=== PATIENT | male | born 1995 | race Caucasian/White ===

== ENCOUNTER 2020-08-03 17:51 | Inpatient (IN) | payer BC, MEDICARE, MEDICAID, SELFPAY ==
[2020-08-03 17:59] VITALS: BP 172/110; PULSE 98; RESP 20; TEMP 37.2; BMI 24.9
--- NOTE | 2020-08-03 18:02 | ED.PSYCH ---
HPI - Psych General Chief Complaint: Psychiatric Symptoms Stated Complaint: SI Time Seen by Provider: 08/03/20 18:00 Source: patient and EMS Mode of arrival: EMS Limitations: other (agitated) History of Present Illness MD complaint: suicidal ideation and feels depressed Onset (ago): day(s) (few days) Duration: constant History of same: Yes Relieving factors: none Exacerbating factors: none Context: significant life stressor Associated psychiatric symptoms: depression Associated symptoms: denies other symptoms Treatments prior to arrival: none If self harm: admits thoughts of self harm Related Data Home Medications Medication Instructions Recorded Confirmed No Known Home Meds 08/03/20 08/03/20 Allergies Allergy/AdvReac Type Severity Reaction Status Date / Time No Known Allergies Allergy Verified 08/03/20 18:02 Review of Systems Review of Systems: Constitutional : No Fever, No Chills ENT/Mouth : No Ear Pain, No Nasal Congestion, No sore throat Eyes: No Eye Pain, No Swelling, No Redness Cardiovascular : No Chest Pain, No SOB Respiratory : No Cough, No Sputum, No Dyspnea Gastrointestinal : No Nausea, No Vomiting, No Diarrhea, No Hematochezia, No Melena Genitourinary : No Dysuria, No Urinary Frequency, No Hematuria Musculoskeletal : No Myalgias Skin : No Skin Lesions, No rash Neuro : No Weakness, No Numbness, No Paresthesias, No Dizziness, No Headache Psych : positive Anxiety, positive Depression, positive SI, no HI Heme/Lymph: No Lymphadenopathy Endocrine : No Polyuria, No Polydipsia All other systems reviewed and are negative PMFSH Past Medical History Attestation statement: The following information was validated with the patient. Medical History Depression Schizophrenia Suicidal behavior Social History Social History (Updated 08/03/20 @ 18:15 by Keerthi Pope DO) Alcohol intake: unknown Smoking Status: Never smoker Use of substances other than those prescribed or required for medical reasons: Unknown Advance Directives: No Advance Directives Information Provided: Yes Physical Exam Vital Signs: Vital Signs: Last Vital Signs Temp 98.6 F 08/03/20 20:12 Pulse 121 H 08/03/20 20:12 Resp 20 08/03/20 20:12 BP 148/105 H 08/03/20 20:12 Pulse Ox 97 08/03/20 20:12 Body Mass Index 24.9 Appearance: Alert. Oriented X3. agitated at times, No acute distress. Eyes: Pupils equal, round and reactive to light. ENT: Pharynx normal. Neck: Normal inspection. Neck supple. CVS: Normal heart rate and rhythm. Pulses normal. Respiratory: No respiratory distress. Breath sounds normal. Abdomen: Soft and nontender. Skin: Skin warm and dry. Normal skin color. Normal skin turgor. Extremities: No lower extremity edema. No calf ttp Neuro: Oriented X 3. No motor deficit. No sensory deficit. CN 2 - 12 intact Psych: + anxiety, depression, no HI, pos SI no plan Course Course Course Narrative: inpatient bed search per CARE team, patient requesting head CT signed out pending further management MDM - Psych MDM Narrative Medical decision making narrative: 25 yo male with schizophrenia here with SI states he takes no medications, has no plan but very upset and agitated at this time will obtain labs and CARE team consult, placed on 1:1 sitter, will sign section 12 until seen Lab Data Result diagrams: 08/03/20 18:18 08/03/20 18:18 Labs: Lab Results 08/03/20 08/03/20 08/03/20 Range/Units 18:18 18:18 18:18 WBC 6.2 (4.8-10.8) X10*3/uL RBC 5.69 (4.60-5.80) X10*6/uL Hgb 16.9 (14.0-18.0) g/dl Hct 48.9 (42-52) % MCV 85.9 (80-98) fL MCH 29.7 (27.0-33.0) pg MCHC 34.6 (31.0-36.0) g/dl RDW 11.6 (11.0-16.0) % Plt Count 183 (160-400) X10*3/uL MPV 12.3 (9.4-12.4) fL Immature Gran % (Auto) 0.3 (0.0-0.4) % Neut % (Auto) 77.4 H (45-73) % Lymph % (Auto) 15.0 L (20-40) % Carroll % (Auto) 6.0 (2-11) % Eos % (Auto) 1.0 (0-4) % Baso % (Auto) 0.3 (0-2) % Lymph # (Auto) 0.9 L (1.2-4.9) X10*3/uL Carroll # (Auto) 0.4 (0.1-1.2) X10*3/uL Eos # (Auto) 0.1 (0.0-0.4) X10*3/uL Baso # (Auto) 0.0 (0.0-0.2) X10*3/uL Abs Immat Gran (auto) 0.02 (0.00-0.03) X10*3/uL Absolute Neuts (auto) 4.8 (2.0-8.3) X10*3/uL Absolute Nucleated RBC 0.000 (0.0-0.012) X10*3/uL Nucleated RBC % (auto) 0.0 (0.0-0.2) /100WBC Sodium 139 (135-145) mmol/L Potassium 4.2 (3.3-5.1) mmol/l Chloride 105 (96-108) mmol/L Carbon Dioxide 23 (22-29) mmol/L Anion Gap 15 (12-20) BUN 16 (9-16) mg/dL Creatinine 0.92 (0.5-1.4) mg/dL Estim Creat Clear Calc 137.5 Estimated GFR > 60 Random Glucose 96 (60-115) mg/dL Calcium 9.2 (8.4-10.2) mg/dL Total Bilirubin 0.9 (0.0-1.0) mg/dL Direct Bilirubin 0.4 (0.0-0.5) mg/dL AST 15 (5-37) U/L ALT 24 (0-40) U/L Alkaline Phosphatase 74 (39-117) U/L Total Protein 7.5 (6.5-8.0) g/dL Albumin 4.9 (3.5-5.0) g/dL Urine Opiates Screen (Not Detect) Ur Barbiturates Screen (Not Detect) Ur Phencyclidine Scrn (Not Detect) Ur Amphetamines Screen (Not Detect) U Benzodiazepines Scrn (Not Detect) Urine Cocaine Screen (Not Detect) U Marijuana (THC) Screen (Not Detect) Ethyl Alcohol < 10 mg/dL 08/03/20 Range/Units 20:24 WBC (4.8-10.8) X10*3/uL RBC (4.60-5.80) X10*6/uL Hgb (14.0-18.0) g/dl Hct (42-52) % MCV (80-98) fL MCH (27.0-33.0) pg MCHC (31.0-36.0) g/dl RDW (11.0-16.0) % Plt Count (160-400) X10*3/uL MPV (9.4-12.4) fL Immature Gran % (Auto) (0.0-0.4) % Neut % (Auto) (45-73) % Lymph % (Auto) (20-40) % Carroll % (Auto) (2-11) % Eos % (Auto) (0-4) % Baso % (Auto) (0-2) % Lymph # (Auto) (1.2-4.9) X10*3/uL Carroll # (Auto) (0.1-1.2) X10*3/uL Eos # (Auto) (0.0-0.4) X10*3/uL Baso # (Auto) (0.0-0.2) X10*3/uL Abs Immat Gran (auto) (0.00-0.03) X10*3/uL Absolute Neuts (auto) (2.0-8.3) X10*3/uL Absolute Nucleated RBC (0.0-0.012) X10*3/uL Nucleated RBC % (auto) (0.0-0.2) /100WBC Sodium (135-145) mmol/L Potassium (3.3-5.1) mmol/l Chloride (96-108) mmol/L Carbon Dioxide (22-29) mmol/L Anion Gap (12-20) BUN (9-16) mg/dL Creatinine (0.5-1.4) mg/dL Estim Creat Clear Calc Estimated GFR Random Glucose (60-115) mg/dL Calcium (8.4-10.2) mg/dL Total Bilirubin (0.0-1.0) mg/dL Direct Bilirubin (0.0-0.5) mg/dL AST (5-37) U/L ALT (0-40) U/L Alkaline Phosphatase (39-117) U/L Total Protein (6.5-8.0) g/dL Albumin (3.5-5.0) g/dL Urine Opiates Screen Not Detected (Not Detect) Ur Barbiturates Screen Not Detected (Not Detect) Ur Phencyclidine Scrn Not Detected (Not Detect) Ur Amphetamines Screen Not Detected (Not Detect) U Benzodiazepines Scrn Not Detected (Not Detect) Urine Cocaine Screen Not Detected (Not Detect) U Marijuana (THC) Screen Not Detected (Not Detect) Ethyl Alcohol mg/dL Discharge Plan Discharge Clinical Impression: Depression Qualifiers: Depression Type: unspecified Qualified Code(s): F32.9 - Major depressive disorder, single episode, unspecified Prescriptions: No Action No Known Home Meds RF: 0
--- NOTE | 2020-08-03 18:24 | PC.NURSE ---
PT ambulated to pod with steady gait, denies complaints at this time. Pt reports that out of anger and resentment towards the healthcare system he made statements. Pt denies SI/HI at this time.
[2020-08-03 18:26] LABS: MANUAL DIFF FLAG NO
[2020-08-03 18:31] LABS: Basophils Percent Auto 0.3 % (0-2); Eosinophils Absolute Auto 0.1 X10*3/uL (0.0-0.4); Hematocrit 48.9 % (42-52); Hemoglobin 16.9 g/dl (14.0-18.0); Imm Gran Abs Auto 0.02 X10*3/uL (0.00-0.03); Imm Gran Pct Auto 0.3 % (0.0-0.4); Lymphocytes Absolute Auto 0.9 X10*3/uL (1.2-4.9); Mean Corpuscular HGB Conc 34.6 g/dl (31.0-36.0); Mean Corpuscular Hemoglobin 29.7 pg (27.0-33.0); Mean Corpuscular Volume 85.9 fL (80-98); Mean Platelet Volume 12.3 fL (9.4-12.4); Monocytes Absolute Auto 0.4 X10*3/uL (0.1-1.2); Neutrophils Absolute Auto 4.8 X10*3/uL (2.0-8.3); Neutrophils Percent Auto 77.4 % (45-73); Platelet Count 183 X10*3/uL (160-400); Red Blood Count 5.69 X10*6/uL (4.60-5.80); Red Cell Distribution Width 11.6 % (11.0-16.0); White Blood Count 6.2 X10*3/uL (4.8-10.8)
[2020-08-03 18:34] VITALS: BP 153/108; PULSE 116; RESP 18; TEMP 37; O2SAT 98
[2020-08-03 18:47] LABS: Ethanol < 10 mg/dL
[2020-08-03 18:51] LABS: Alanine Aminotransferase 24 U/L (0-40); Albumin Level 4.9 g/dL (3.5-5.0); Alkaline Phosphatase 74 U/L (39-117); Anion Gap 15 (12-20); Aspartate Amino Transferase 15 U/L (5-37); Bilirubin Direct 0.4 mg/dL (0.0-0.5); Bilirubin Total 0.9 mg/dL (0.0-1.0); Blood Urea Nitrogen 16 mg/dL (9-16); Calcium 9.2 mg/dL (8.4-10.2); Carbon Dioxide 23 mmol/L (22-29); Chloride 105 mmol/L (96-108); Creatinine Clr Calc Pharmacy 137.5; Estimated Glomerular Filt Rate > 60; Glucose Random 96 mg/dL (60-115); Potassium 4.2 mmol/l (3.3-5.1); Sodium 139 mmol/L (135-145); Total Protein 7.5 g/dL (6.5-8.0)
--- NOTE | 2020-08-03 19:14 | PC.NURSE ---
Report received. PT is pacing in his room. May be responding to internal stimuli. Calm and cooperative. Waiting to be seen by CARE team.
[2020-08-03 20:12] VITALS: BP 148/105; PULSE 121; RESP 20; TEMP 37; O2SAT 97
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
[2020-08-03 21:14] LABS: Amphetamine Screen Urine Not Detected (Not Detect); Barbiturates, Urine Not Detected (Not Detect); Benzodiazepines Screen Urine Not Detected (Not Detect); Cannabinoid Screen Urine Not Detected (Not Detect); Cocaine Screen Urine Not Detected (Not Detect); Opiate Screen Urine Not Detected (Not Detect); Phencyclidine Screen Urine Not Detected (Not Detect)
--- NOTE | 2020-08-03 21:21 | CT_ITS ---
EXAMINATION: CT HEAD WITHOUT CONTRAST CLINICAL INFORMATION: 25-year-old male patient with change in behavior. History of prior head injury. COMPARISON: None TECHNIQUE: Contiguous axial imaging was performed from the skull base to vertex without intravenous administration of contrast. This CT examination was performed using dose optimization techniques as appropriate, variously including the following: *Automated exposure control *Adjustment of mA and/or kV according to patient size (this includes techniques or standardized protocols for targeted exams where dose is matched to indication/reason for exam; i.e. extremities or head) *Use of iterative reconstruction technique DLP: 848 mGy-cm FINDINGS: There is no evidence of acute intracranial hemorrhage or territorial infarction. No abnormal mass effect or midline shift is seen. Peng to white matter differentiation is well preserved. No extra-axial fluid collections are identified. The ventricles are normal in size. There is an enlarged cisterna magna, a normal variant. There is no abnormal attenuation within the brain parenchyma. The osseous structures and soft tissues are normal. The mastoid air cells and visualized portions of the paranasal sinuses are well aerated. CT/CT head/brain wo con IMPRESSION: No acute intracranial pathology.
--- NOTE | 2020-08-03 23:30 | MHC.CARE ---
Bedsearch note: CARE team conducted preliminary bedsearch through [facility] and by phone. -Unable to get through to [facility] by phone. No answer. Faxed a copy of assessment. -[facility] reports they may be able to review the assessment on the overnight shift. CARE team faxed a copy of assessment. -[facility] reports they are only accepting internal referrals. -[facility] reports they have one male bed however CARE team's faxes were not going through. CARE team called twice to confirm the correct number and their staff confirms it is [phone] and they are unsure why the faxes aren't going through. -[facility] reports they have no available beds.
[2020-08-04] VITALS (12 sets, daily range): BP systolic 136–167; BP diastolic 77–103; PULSE 98–131; RESP 16–20; TEMP 36.1–36.9; O2SAT 96–99
--- NOTE | 2020-08-04 00:24 | PC.NURSE ---
PT's aunt called and gave some insight into the family and PT's mental health history. PT's father, aunts and uncles have long history with mental health issues. PT stopped taking his medications 4 years ago and has been self medicating with hallucinogenic mushrooms. PT's aunt stated that the PT has been living at her younger sister's house with other people who frequently neglect their own mental health treatment. The aunt feels that this living environment is not healthy for the PT. PT has been extremely tearful and depressed the past week. PT called insurance company to determine if he had coverage for psychiatric treatment. Insurance company utility sales representative must have be alarmed and alerted EMS of potential suicide risk because PT was picked up and brought to the hospital shortly after the call.
[2020-08-04 01:22] LABS: COVID-19 Test Negative (Negative)
--- NOTE | 2020-08-04 08:49 | PC.NURSE ---
Report received from justin gee. Pt resting on arrival, resp unlabored.
--- NOTE | 2020-08-04 10:25 | MHC.CARE ---
t/w placed a call to [employer] to verify insurance at 0945 and pt has coverage in group number [id number] with ID number [id number], in a family contract with policy holders name as Amanda Nogueira. T/w spoke w for pre-cert and auth number [id number] at 1015 obtained auth to [facility] to today for 15 days with review on 08/18/20 with reviewer Caprice at ext [phone].
--- NOTE | 2020-08-04 11:11 | PC.NURSE ---
Pt awake, alert. Pacing. denies pain. Denies any concerns at this time. Gave permission to speak w/ mother. Pt aware BP is high, but does not want treatment at this time. Provider aware.
--- NOTE | 2020-08-04 14:01 | PC.NURSE ---
Pt resting, resp unlabored.
--- NOTE | 2020-08-04 15:12 | PC.NURSE ---
Pt resting in room, tearful, asked 'will my high blood pressure cause diabetes' Pt educated and reassured.
[2020-08-04] MEDS: LORazepam 1 MG TABLET 2 MG PO (15:56)
--- NOTE | 2020-08-04 16:06 | PC.NURSE ---
Pt agitated, responding to internal stimuli, banging his bed with his fist. Pt willing to accept ativan, declined Haldol. Provider aware of agitation, pt medicated as pordered. Received call from requesting repeat vitals before accepting report.
--- NOTE | 2020-08-04 16:31 | PC.NURSE ---
Pt requesting multiple times to speak with someone upstairs. Continues to pace. Guillermina from CARE team in to speak w/ pt.
--- NOTE | 2020-08-04 16:54 | PC.NURSE ---
Pt resting in bed, watching television.
--- NOTE | 2020-08-04 17:00 | PC.NURSE ---
Spoke w/ [facility], requesting one additional blood pressure reading.
--- NOTE | 2020-08-04 18:42 | PC.NURSE ---
Care team in to transfer pt to [facility]. Pt cooperative w/ transfer. no concerns reported.
--- NOTE | 2020-08-04 18:42 | MHC.CARE ---
CARE team met with this patient in ED pod room 5 to facilitate transfer/admission to . Patient is being admitted voluntarily and signed CV. Patient asks Am I safe? and CARE team responded that patient will be in a contained and monitored environment. Patient is asking to be able to go to bed soon as he is feeling tired and would like to rest. CARE team updated staff.
[2020-08-04] MEDS: Flu Vacc QS2020-21(6mos up)/PF 0.5 ML SYRINGE IM (20:32)
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
[2020-08-05 06:18] VITALS: BP 136/84; PULSE 108; RESP 16; TEMP 36.1; O2SAT 99
[2020-08-05 08:34] LABS: Cholesterol 190 mg/dL; HDL Cholesterol 55 mg/dL; LDL Cholesterol Calculated 126 mg/dl; Triglycerides 45 mg/dL
--- NOTE | 2020-08-05 14:08 | HO.PSYADMNOT ---
HPI Chief Complaint: psychosis Sources of Information: patient interviewed, chart reviewed and crisis/core team assessment reviewed HPI Narrative: Patient is a 25 year old male who was seen by CARE team in the ER, after he was brought by EMS. A family member called about patient's suicidality. He carries the diagnosis of bipolar disorder and this is his first admission to but one of several admissions over the last 10 years. Patient denied SI during the assessment, but was endorsing it upon arrival. Patient was varied in presentation, sometimes guarded and sometimes sharing intimate detail. He has reported a history of significant and repeated head injury. He acknowledges a history of bipolar diagnosis but does not agree with this or any diagnosis. Denies AVH however patient appeared to be responding internally and endorsed paranoia. Denies current substance use. He reports a history of marijuana and psilocybin use. He reports no current providers. From the CARE team note: Patient presented with a variety of bizarre and incongruent behaviors during the assessment. Would often take long pauses before answering questions, and eye movement patterns indicated patient was listening to someone or something. Appeared to be consulting internally. Would let out long sighs, sometimes sounding exasperated. Sometimes would engage in what appeared to be calming or self-soothing breaths. Voice patterns would sometimes shift and change. Eye contact varied. At times, eye contact was intense and sometimes almost threatening. Patient seemed conflicted, tormented at times. Would ball fists and scratch at the sheets or scratch his knees, legs, and arms over his clothing. Would become very frustrated at the mention of his parents. At one point, CARE team offered patient to take a break and he began crying then started calmly asking about the switches and plugs in his room, then stated he needed to see a process manager, then began looking back and forth between the camera and the exit, stating cameras made him very uncomfortable. Then started hyperventilating then said I'm safe, then began crying again. Stated he needed to talk to a process manager. Said I'm not sure if I should tell you repeatedly. Eyes darting and presentation shifting rapidly. On arrival to the unit he remained quite labile. He was guarded and then tearful. He struggled to engage in the interview and said repeatedly that I am fine . He declines any medication and he signed a three day notice. According to his mother, he has had difficulty for 10 years. He dropped out of community college. She is not sure what treatment he has had in the last few years, since he was a young adult . He has apparently been shaken by COVID. He had returned to live with his mother after traveling for a year and a half in his van. He moved to this area in June to live with his cousin. His mother reports he has been declining over the last 1 - 2 months. Past Psychiatric History: Several admissions in last 10 years. Full history of medication trials is not known. He has been on lamictal, risperdal, lexapro and hydroxyzine Medical Evaluation Reviewed: Yes Medically cleared for admission [facility] Medical History Depression Schizophrenia Suicidal behavior Family History: Father has bipolar disorder Social History: On disability Currently lives with his cousin Parents are . His mother reports tumultuous upbringing Substance History: Uses mushrooms Diagnostics Vital Signs (24Hr): Vital Signs - 24 hr 08/04/20 16:00 08/04/20 16:38 08/04/20 17:02 Temperature Pulse Rate 119 H 115 H Respiratory Rate 20 20 Blood Pressure 154/100 H 137/77 Pulse Oximetry 08/04/20 18:00 08/04/20 20:00 08/04/20 20:43 Temperature 98.2 F Pulse Rate 99 99 Respiratory Rate 16 18 Blood Pressure 136/96 H Pulse Oximetry 99 08/05/20 06:18 Temperature 97 F Pulse Rate 108 H Respiratory Rate 16 Blood Pressure 136/84 Pulse Oximetry 99 Body Mass Index 24.9 Labs Results: 08/03/20 18:18 08/03/20 18:18 Labs: Laboratory Results - last 48 hr 08/03/20 08/03/20 08/03/20 18:18 18:18 18:18 WBC 6.2 RBC 5.69 Hgb 16.9 Hct 48.9 MCV 85.9 MCH 29.7 MCHC 34.6 RDW 11.6 Plt Count 183 MPV 12.3 Immature Gran % (Auto) 0.3 Neut % (Auto) 77.4 H Lymph % (Auto) 15.0 L Jess[place] % (Auto) 6.0 Eos % (Auto) 1.0 Baso % (Auto) 0.3 Lymph # (Auto) 0.9 L [place] # (Auto) 0.4 Eos # (Auto) 0.1 Baso # (Auto) 0.0 Abs Immat Gran (auto) 0.02 Absolute Neuts (auto) 4.8 Absolute Nucleated RBC 0.000 Nucleated RBC % (auto) 0.0 Sodium 139 Potassium 4.2 Chloride 105 Carbon Dioxide 23 Anion Gap 15 BUN 16 Creatinine 0.92 Estim Creat Clear Calc 137.5 Estimated GFR > 60 Random Glucose 96 Calcium 9.2 Total Bilirubin 0.9 Direct Bilirubin 0.4 AST 15 ALT 24 Alkaline Phosphatase 74 Total Protein 7.5 Albumin 4.9 Triglycerides Cholesterol LDL Cholesterol, Calc HDL Cholesterol Urine Opiates Screen Ur Barbiturates Screen Ur Phencyclidine Scrn Ur Amphetamines Screen U Benzodiazepines Scrn Urine Cocaine Screen U Marijuana (THC) Screen Ethyl Alcohol < 10 COVID-19 (ROE) COVID-Rustoria 08/03/20 08/04/20 08/05/20 20:24 01:00 07:09 WBC RBC Hgb Hct MCV MCH MCHC RDW Plt Count MPV Immature Gran % (Auto) Neut % (Auto) Lymph % (Auto) Jess[place] % (Auto) Eos % (Auto) Baso % (Auto) Lymph # (Auto) Jess[place] # (Auto) Eos # (Auto) Baso # (Auto) Abs Immat Gran (auto) Absolute Neuts (auto) Absolute Nucleated RBC Nucleated RBC % (auto) Sodium Potassium Chloride Carbon Dioxide Anion Gap BUN Creatinine Estim Creat Clear Calc Estimated GFR Random Glucose Calcium Total Bilirubin Direct Bilirubin AST ALT Alkaline Phosphatase Total Protein Albumin Triglycerides 45 Cholesterol 190 LDL Cholesterol, Calc 126 HDL Cholesterol 55 Urine Opiates Screen Not Detected Ur Barbiturates Screen Not Detected Ur Phencyclidine Scrn Not Detected Ur Amphetamines Screen Not Detected U Benzodiazepines Scrn Not Detected Urine Cocaine Screen Not Detected U Marijuana (THC) Screen Not Detected Ethyl Alcohol COVID-19 (ROE) Negative COVID-19 [employer] See Note Imaging Radiology Impressions: ITS Impressions Head CT 08/03/20 21:21 IMPRESSION: No acute intracranial pathology. Meds/Allergies Meds Home Medications Acetaminophen (Acetaminophen 325 Mg Tablet) 650 mg PO Q6H PRN PRN Reason: Headache/Pain Mild Scale (1-3) Al Hydroxide/Mg Hydroxide (Magnesium Hydrox/Alum Hydrox 30 Ml Oral.Susp) 30 ml PO Q6H PRN PRN Reason: Heartburn/Nausea Hydroxyzine HCl (Hydroxyzine Hcl 25 Mg Tablet) 25 mg PO BEDTIME PRN PRN Reason: Anxiety Lorazepam (Lorazepam 1 Mg Tablet) 1 mg PO RQ4H PRN PRN Reason: anxiety/restlessness Magnesium Hydroxide (Milk Of Magnesia 30 Ml Oral.Susp) 30 ml PO DAILY PRN PRN Reason: Constipation Olanzapine (Olanzapine 5 Mg Tablet) 5 mg PO RQ4H PRN PRN Reason: anxiety/restlessness Trazodone HCl (Trazodone Hcl 50 Mg Tablet) 50 mg PO BEDTIME PRN PRN Reason: Insomnia Allergies Allergies Allergy/AdvReac Type Severity Reaction Status Date / Time No Known Allergies Allergy Verified 08/03/20 18:02 Mental Status Exam Mental Status Exam Patient Appearance: Well Grooomed Patient Orientation: Person and Place Level of Consciousness: Awake Patient Behavior: Guarded, Suspicious, Anxious and Crying Mood Description: Fearful Affect Description: Withdrawn, Fearful and Blunted Patient Cognition Impaired: No Ability to Follow Directions: Poor Speech Pattern: Spontaneous Speech and Soft-Spoken Memory Description: Intact Hallucinations: None Delusions: Not Present Thought Process: Intact and Rumination Thought Content: positive for Evasive, negative for Suicidal Ideation and negative for Homicidal Ideation Depressive Symptoms: Diff. Making Decisions, Difficulty Sleeping, Crying Spells, Hopelessness, Unhappiness, Thoughts of /Suicide and Low Self Esteem Judgement: Poor Assessment & Plan Assessment & Plan (1) Bipolar 1 disorder, depressed, severe: Status: Acute Code(s): F31.4 - Bipolar disorder, current episode depressed, severe, without psychotic features Patient educated on: diagnosis, medication risk/benefits and substance abuse Informed Consent: does not understand Reason for continued inpatient stay Substantial Risk for: harm to self, inability to function and rapid decompensation
[2020-08-05 16:00] VITALS: PULSE 109
[2020-08-05] MEDS: LORazepam 1 MG TABLET PO (16:30)
[2020-08-05] MEDS: OLANZapine 5 MG TABLET PO (16:42)
[2020-08-05] MEDS: LORazepam 1 MG TABLET 2 MG PO (17:48)
[2020-08-05] MEDS: OLANZapine ODT 10 MG TAB.RAPDIS TRANSLINGU (19:03)
[2020-08-05 20:00] VITALS: BP 143/69; PULSE 102; TEMP 36.2; O2SAT 97
[2020-08-06 07:22] LABS: Estimated Average Glucose 100 mg/dL; Hemoglobin A1c % 5.1 %
[2020-08-06] MEDS: LORazepam 1 MG TABLET PO ×3 (08:33→18:51)
[2020-08-06] MEDS: OLANZapine 5 MG TABLET PO ×3 (08:33→18:52)
[2020-08-06 15:22] VITALS: BP 136/92; PULSE 135
--- NOTE | 2020-08-06 15:48 | HO.PSYCHPN ---
Subjective Subjective Date of Service: 08/06/20 Reason For Visit: psychosis Subjective Notes: 3 Day Interim History: Marlon was quite agitated and fearful last evening and he received ativan and zyprexa. He responded well to these and he is much improved today He is willing to take medications as a standing order but otherwise did not want to engage. Medication Compliance: Yes Side effects from medications: No Attending Groups: Intermittent Review of Systems Acute medical concerns: No Medical Review of Systems: unchanged Mental Status Exam Mental Status Exam Patient Appearance: Well Grooomed Patient Orientation: Person and Place Level of Consciousness: Awake Patient Behavior: Guarded, Suspicious and Anxious Mood Description: Fearful Affect Description: Withdrawn, Fearful and Blunted Patient Cognition Impaired: No Ability to Follow Directions: Poor Speech Pattern: Spontaneous Speech and Soft-Spoken Memory Description: Intact Hallucinations: None Delusions: Not Present Thought Process: Intact and Rumination Thought Content: positive for Evasive, negative for Suicidal Ideation and negative for Homicidal Ideation Depressive Symptoms: Diff. Making Decisions, Difficulty Sleeping, Crying Spells, Hopelessness, Unhappiness, Thoughts of /Suicide and Low Self Esteem Judgement: Poor Diagnostics Vital Signs (24Hr): Vital Signs - 24 hr 08/05/20 16:00 08/05/20 20:00 08/06/20 15:22 Temperature 97.1 F Pulse Rate 109 H 102 H 135 H Blood Pressure 143/69 H 136/92 H Pulse Oximetry 97 Body Mass Index 24.9 Labs Results: 08/03/20 18:18 08/03/20 18:18 Labs: Laboratory Results - last 48 hr 08/05/20 08/05/20 07:09 07:31 Estimat Average Glucose 100 Hemoglobin A1c % 5.1 Triglycerides 45 Cholesterol 190 LDL Cholesterol, Calc 126 HDL Cholesterol 55 Imaging Radiology Impressions: ITS Impressions Head CT 08/03/20 21:21 IMPRESSION: No acute intracranial pathology. Medications Medications Current Medications Generic Name Dose Route Start Last Admin Trade Name Freq PRN Reason Stop Dose Admin Acetaminophen 650 mg 08/04/20 18:27 Acetaminophen 325 Mg Tablet PO Q6H PRN Headache/Pain Mild Scale (1-3) Al Hydroxide/Mg Hydroxide 30 ml 08/04/20 18:27 Magnesium Hydrox/Alum Hydrox 30 Ml Oral.Susp PO Q6H PRN Heartburn/Nausea Hydroxyzine HCl 25 mg 08/04/20 18:27 Hydroxyzine Hcl 25 Mg Tablet PO BEDTIME PRN Anxiety Lorazepam 1 mg 08/04/20 18:27 08/06/20 15:04 Lorazepam 1 Mg Tablet PO 1 mg RQ4H PRN Administration anxiety/restlessness Magnesium Hydroxide 30 ml 08/04/20 18:27 Milk Of Magnesia 30 Ml Oral.Susp PO DAILY PRN Constipation Olanzapine 5 mg 08/04/20 18:27 08/06/20 15:04 Olanzapine 5 Mg Tablet PO 5 mg RQ4H PRN Administration anxiety/restlessness Olanzapine 5 mg 08/07/20 09:00 Olanzapine 5 Mg Tablet PO DAILY LU Olanzapine 15 mg 08/06/20 21:00 Olanzapine 10 Mg Tablet PO BEDTIME LU Trazodone HCl 50 mg 08/04/20 18:27 Trazodone Hcl 50 Mg Tablet PO BEDTIME PRN Insomnia Allergies Allergies Allergy/AdvReac Type Severity Reaction Status Date / Time No Known Allergies Allergy Verified 08/03/20 18:02 Assessment & Plan Assessment & Plan (1) Bipolar 1 disorder, depressed, severe: Status: Acute Code(s): F31.4 - Bipolar disorder, current episode depressed, severe, without psychotic features Assessment and Plan: Zyprexa and ativan Continue to collect collateral history Greater than 50% of the session was spent on counseling and/or coordination of care Patient educated on: diagnosis and medication risk/benefits Informed Consent: does not understand Reason for contiued inpatient stay Substantial Risk for: inability to function and rapid decompensation
[2020-08-06 18:42] VITALS: BP 159/94; PULSE 121; TEMP 37
--- NOTE | 2020-08-06 18:56 | PC.NURSE ---
Pt 's Mom called this evening. She is worried about a letter that she got about renewing his disability information. She was told to call back Sunday.
[2020-08-06 19:28] VITALS: BP 125/80; PULSE 119
[2020-08-06] MEDS: OLANZapine 10 MG TABLET 15 MG PO (19:56)
[2020-08-07] MEDS: OLANZapine 5 MG TABLET PO ×3 (08:56→18:35)
[2020-08-07] MEDS: LORazepam 1 MG TABLET PO ×3 (09:27→22:07)
[2020-08-07 12:00] VITALS: BP 132/72; PULSE 95; TEMP 37.3
--- NOTE | 2020-08-07 13:28 | P.PNPSI_ITS ---
Subjective Subjective Date of Service: 08/07/20 Reason For Visit: psychosis Subjective Notes: Conditional Voluntary Interim History: Marlon has been feeling significantly more settled. His mood is more even and he has no SI. Medication Compliance: Yes Side effects from medications: No Attending Groups: Yes Review of Systems Acute medical concerns: No Medical Review of Systems: unchanged Mental Status Exam Mental Status Exam Patient Appearance: Well Grooomed Patient Orientation: Person and Place Level of Consciousness: Awake Patient Behavior: Guarded, Suspicious and Anxious Mood Description: Fearful Affect Description: Withdrawn, Fearful and Blunted Patient Cognition Impaired: No Ability to Follow Directions: Poor Speech Pattern: Spontaneous Speech and Soft-Spoken Memory Description: Intact Hallucinations: None Delusions: Not Present Thought Process: Intact and Rumination Thought Content: positive for Evasive, negative for Suicidal Ideation and ne gative for Homicidal Ideation Depressive Symptoms: Diff. Making Decisions, Difficulty Sleeping, Crying Spells, Hopelessness, Unhappiness, Thoughts of /Suicide and Low Self Esteem Judgement: Poor Diagnostics Vital Signs (24Hr): Vital Signs - 24 hr 08/06/20 15:22 08/06/20 18:42 08/06/20 19:28 Temperature 98.6 F Pulse Rate 135 H 121 H 119 H Blood Pressure 136/92 H 159/94 H 125/80 08/07/20 12:00 Temperature 99.1 F Pulse Rate 95 Blood Pressure 132/72 Body Mass Index 24.9 Labs Results: 08/03/20 18:18 08/03/20 18:18 Labs: Laboratory Results - last 48 hr 08/05/20 07:31 Estimat Average Glucose 100 Hemoglobin A1c % 5.1 Imaging Radiology Impressions: ITS Impressions Head CT 08/03/20 21:21 IMPRESSION: No acute intracranial pathology. Medications Medications Current Medications Generic Name Dose Route Start Last Admin Trade Name Freq PRN Reason Stop Dose Admin Acetaminophen 650 mg 08/04/20 18:27 Acetaminophen 325 Mg Tablet PO Q6H PRN Headache/Pain Mild Scale (1-3) Al Hydroxide/Mg Hydroxide 30 ml 08/04/20 18:27 Magnesium Hydrox/Alum Hydrox 30 Ml Oral.Susp PO Q6H PRN Heartburn/Nausea Hydroxyzine HCl 25 mg 08/04/20 18:27 Hydroxyzine Hcl 25 Mg Tablet PO BEDTIME PRN Anxiety Lorazepam 1 mg 08/04/20 18:27 08/07/20 09:27 Lorazepam 1 Mg Tablet PO 1 mg RQ4H PRN Administration anxiety/restlessness Magnesium Hydroxide 30 ml 08/04/20 18:27 Milk Of Magnesia 30 Ml Oral.Susp PO DAILY PRN Constipation Olanzapine 5 mg 08/04/20 18:27 08/06/20 18:52 Olanzapine 5 Mg Tablet PO 5 mg RQ4H PRN Administration anxiety/restlessness Olanzapine 5 mg 08/07/20 09:00 08/07/20 08:56 Olanzapine 5 Mg Tablet PO 5 mg DAILY LU Administration Olanzapine 15 mg 08/06/20 21:00 08/06/20 19:56 Olanzapine 10 Mg Tablet PO 15 mg BEDTIME LU Administration Trazodone HCl 50 mg 08/04/20 18:27 Trazodone Hcl 50 Mg Tablet PO BEDTIME PRN Insomnia Allergies Allergies Allergy/AdvReac Type Severity Reaction Status Date / Time No Known Allergies Allergy Verified 08/03/20 18:02 Assessment & Plan Assessment & Plan (1) Bipolar 1 disorder, depressed, severe: Status: Acute Code(s): F31.4 - Bipolar disorder, current episode depressed, severe, without psychotic features Assessment and Plan: CT current treatment plan Greater than 50% of the session was spent on counseling and/or coordination of care Patient educated on: diagnosis and medication risk/benefits Informed Consent: further education needed Reason for contiued inpatient stay Substantial Risk for: inability to function and rapid decompensation
[2020-08-07 16:20] VITALS: BP 154/101; PULSE 114; TEMP 36.7
[2020-08-07 18:38] VITALS: BP 161/89; PULSE 118
[2020-08-07] MEDS: OLANZapine 10 MG TABLET 15 MG PO (22:07)
[2020-08-08] MEDS: OLANZapine 5 MG TABLET PO ×3 (09:19→16:36)
[2020-08-08] MEDS: LORazepam 1 MG TABLET PO ×2 (12:24→16:37)
--- NOTE | 2020-08-08 13:54 | HO.PSYCHPN ---
Subjective Subjective Date of Service: 08/08/20 Reason For Visit: psychosis Subjective Notes: Conditional Voluntary Interim History: Marlon has been intermittently paranoid, but at other times he is calmer and states that he feels better. Medication Compliance: Yes Side effects from medications: No Attending Groups: Yes Review of Systems Acute medical concerns: No Medical Review of Systems: unchanged Mental Status Exam Mental Status Exam Patient Appearance: Well Grooomed Patient Orientation: Person and Place Level of Consciousness: Awake Patient Behavior: Guarded, Suspicious and Anxious Mood Description: Fearful Affect Description: Withdrawn, Fearful and Blunted Patient Cognition Impaired: No Ability to Follow Directions: Poor Speech Pattern: Spontaneous Speech and Soft-Spoken Memory Description: Intact Hallucinations: None Delusions: Not Present Thought Process: Intact and Rumination Thought Content: positive for Evasive, negative for Suicidal Ideation and negative for Homicidal Ideation Depressive Symptoms: Diff. Making Decisions, Difficulty Sleeping, Crying Spells, Hopelessness, Unhappiness, Thoughts of /Suicide and Low Self Esteem Judgement: Poor Diagnostics Vital Signs (24Hr): Vital Signs - 24 hr 08/07/20 16:20 08/07/20 18:38 Temperature 98.1 F Pulse Rate 114 H 118 H Blood Pressure 154/101 H 161/89 H Body Mass Index 24.9 Labs Results: 08/03/20 18:18 08/03/20 18:18 Imaging Radiology Impressions: ITS Impressions Head CT 08/03/20 21:21 IMPRESSION: No acute intracranial pathology. Medications Medications Current Medications Generic Name Dose Route Start Last Admin Trade Name Freq PRN Reason Stop Dose Admin Acetaminophen 650 mg 08/04/20 18:27 Acetaminophen 325 Mg Tablet PO Q6H PRN Headache/Pain Mild Scale (1-3) Al Hydroxide/Mg Hydroxide 30 ml 08/04/20 18:27 Magnesium Hydrox/Alum Hydrox 30 Ml Oral.Susp PO Q6H PRN Heartburn/Nausea Hydroxyzine HCl 25 mg 08/04/20 18:27 Hydroxyzine Hcl 25 Mg Tablet PO BEDTIME PRN Anxiety Lorazepam 1 mg 08/04/20 18:27 08/08/20 12:24 Lorazepam 1 Mg Tablet PO 1 mg RQ4H PRN Administration anxiety/restlessness Magnesium Hydroxide 30 ml 08/04/20 18:27 Milk Of Magnesia 30 Ml Oral.Susp PO DAILY PRN Constipation Olanzapine 5 mg 08/04/20 18:27 08/08/20 12:24 Olanzapine 5 Mg Tablet PO 5 mg RQ4H PRN Administration anxiety/restlessness Olanzapine 5 mg 08/07/20 09:00 08/08/20 09:19 Olanzapine 5 Mg Tablet PO 5 mg DAILY LU Administration Olanzapine 15 mg 08/06/20 21:00 08/07/20 22:07 Olanzapine 10 Mg Tablet PO 15 mg BEDTIME LU Administration Trazodone HCl 50 mg 08/04/20 18:27 Trazodone Hcl 50 Mg Tablet PO BEDTIME PRN Insomnia Allergies Allergies Allergy/AdvReac Type Severity Reaction Status Date / Time No Known Allergies Allergy Verified 08/03/20 18:02 Assessment & Plan Assessment & Plan (1) Bipolar 1 disorder, depressed, severe: Status: Acute Code(s): F31.4 - Bipolar disorder, current episode depressed, severe, without psychotic features Assessment and Plan: CT current treatment plan Greater than 50% of the session was spent on counseling and/or coordination of care Patient educated on: diagnosis and medication risk/benefits Informed Consent: further education needed Reason for contiued inpatient stay Substantial Risk for: rapid decompensation
[2020-08-08 16:00] VITALS: BP 170/106; PULSE 116; TEMP 36.8; O2SAT 98
[2020-08-08] MEDS: OLANZapine 10 MG TABLET 15 MG PO (21:23)
[2020-08-08 21:30] VITALS: BP 164/95; PULSE 114; TEMP 36.4
[2020-08-09 02:35] VITALS: BP 153/92; PULSE 126; RESP 18; TEMP 36.4
[2020-08-09] MEDS: hydrOXYzine HCL 25 MG TABLET PO (03:08)
[2020-08-09] MEDS: LORazepam 1 MG TABLET PO ×2 (03:09→15:41)
--- NOTE | 2020-08-09 09:31 | HO.PSYCHPN ---
Subjective Subjective Date of Service: 08/09/20 Reason For Visit: psychosis Subjective Notes: Conditional Voluntary Interim History: Marlon retracted his three day notice. He remains ambivalent about being in the hospital. He goes back and forth between being quite paranoid and delusional about things going on , and then being more clear. Medication Compliance: Yes Side effects from medications: No Attending Groups: Intermittent Review of Systems Acute medical concerns: No Medical Review of Systems: unchanged Mental Status Exam Mental Status Exam Patient Appearance: Well Grooomed Patient Orientation: Person and Place Level of Consciousness: Awake Patient Behavior: Guarded, Suspicious and Anxious Mood Description: Fearful Affect Description: Withdrawn, Fearful and Blunted Patient Cognition Impaired: No Ability to Follow Directions: Poor Speech Pattern: Spontaneous Speech and Soft-Spoken Memory Description: Intact Hallucinations: None Delusions: Not Present Thought Process: Intact and Rumination Thought Content: positive for Evasive, negative for Suicidal Ideation and negative for Homicidal Ideation Depressive Symptoms: Diff. Making Decisions, Difficulty Sleeping, Crying Spells, Hopelessness, Unhappiness, Thoughts of /Suicide and Low Self Esteem Judgement: Poor Diagnostics Vital Signs (24Hr): Vital Signs - 24 hr 08/08/20 16:00 08/08/20 21:30 08/09/20 02:35 Temperature 98.2 F 97.5 F 97.5 F Pulse Rate 116 H 114 H 126 H Respiratory Rate 18 Blood Pressure 170/106 H 164/95 H 153/92 H Pulse Oximetry 98 Body Mass Index 24.9 Labs Results: 08/03/20 18:18 08/03/20 18:18 Imaging Radiology Impressions: ITS Impressions Head CT 08/03/20 21:21 IMPRESSION: No acute intracranial pathology. Medications Medications Current Medications Generic Name Dose Route Start Last Admin Trade Name Freq PRN Reason Stop Dose Admin Acetaminophen 650 mg 08/04/20 18:27 Acetaminophen 325 Mg Tablet PO Q6H PRN Headache/Pain Mild Scale (1-3) Al Hydroxide/Mg Hydroxide 30 ml 08/04/20 18:27 Magnesium Hydrox/Alum Hydrox 30 Ml Oral.Susp PO Q6H PRN Heartburn/Nausea Hydroxyzine HCl 25 mg 08/04/20 18:27 08/09/20 03:08 Hydroxyzine Hcl 25 Mg Tablet PO 25 mg BEDTIME PRN Administration Anxiety Lorazepam 1 mg 08/04/20 18:27 08/09/20 03:09 Lorazepam 1 Mg Tablet PO 1 mg RQ4H PRN Administration anxiety/restlessness Magnesium Hydroxide 30 ml 08/04/20 18:27 Milk Of Magnesia 30 Ml Oral.Susp PO DAILY PRN Constipation Olanzapine 5 mg 08/04/20 18:27 08/08/20 16:36 Olanzapine 5 Mg Tablet PO 5 mg RQ4H PRN Administration anxiety/restlessness Olanzapine 5 mg 08/07/20 09:00 08/08/20 09:19 Olanzapine 5 Mg Tablet PO 5 mg DAILY LU Administration Olanzapine 15 mg 08/06/20 21:00 08/08/20 21:23 Olanzapine 10 Mg Tablet PO 15 mg BEDTIME LU Administration Trazodone HCl 50 mg 08/04/20 18:27 Trazodone Hcl 50 Mg Tablet PO BEDTIME PRN Insomnia Allergies Allergies Allergy/AdvReac Type Severity Reaction Status Date / Time No Known Allergies Allergy Verified 08/03/20 18:02 Assessment & Plan Assessment & Plan (1) Bipolar 1 disorder, depressed, severe: Status: Acute Code(s): F31.4 - Bipolar disorder, current episode depressed, severe, without psychotic features Assessment and Plan: CT current plan Greater than 50% of the session was spent on counseling and/or coordination of care Patient educated on: diagnosis and medication risk/benefits Informed Consent: further education needed Reason for contiued inpatient stay Substantial Risk for: rapid decompensation
[2020-08-09 12:00] VITALS: BP 122/77; PULSE 85; RESP 16; TEMP 36.6
--- NOTE | 2020-08-09 13:36 | PC.NURSE ---
RETRACTED 3 DAY NOTICE, DR PORTER AWARE.
[2020-08-09] MEDS: OLANZapine 5 MG TABLET PO (15:41)
[2020-08-09 16:00] VITALS: BP 139/82; PULSE 120; TEMP 35.9
[2020-08-09] MEDS: OLANZapine 10 MG TABLET 15 MG PO (20:25)
[2020-08-09 20:30] VITALS: BP 143/97; PULSE 122
[2020-08-10 08:00] VITALS: BP 136/87; PULSE 110; TEMP 36.4
[2020-08-10] MEDS: OLANZapine 5 MG TABLET PO ×2 (08:12→08:13)
[2020-08-10] MEDS: LORazepam 1 MG TABLET PO (08:12)
--- NOTE | 2020-08-10 09:26 | HO.PSYCHPN ---
Subjective Subjective Date of Service: 08/10/20 Reason For Visit: psychosis Subjective Notes: Conditional Voluntary Interim History: Marlon was extremely agitated for much of the morning. He continued to assert that he needed to leave and that he should not be here. Despite receiving po medications and staff support, he ran off the unit and had to be re-directed back by staff. Following this he started screaming and running up and down the halls, banging his fists. As a result of his dyscontrol and erratic behaviors, he was given im haldol, ativan and cogentin as a medication restraint. He was seen about 45 minutes later and he was sleeping in bed comfortably. He was placed on CO. Medication Compliance: Yes Side effects from medications: No Attending Groups: No Review of Systems Acute medical concerns: No Medical Review of Systems: unchanged Mental Status Exam Mental Status Exam Patient Appearance: Well Grooomed Patient Orientation: Person and Place Level of Consciousness: Combative Patient Behavior: Guarded, Suspicious, Belligerent, Anxious, Fearful and Combative Mood Description: Fearful, Hostile and Angry Affect Description: Withdrawn, Fearful, Blunted and Angry Patient Cognition Impaired: No Ability to Follow Directions: Poor Speech Pattern: Spontaneous Speech, Loud, Pressured and Includes Profanity Memory Description: Intact Hallucinations: None Delusions: Not Present Thought Process: Intact and Rumination Thought Content: positive for Evasive, negative for Suicidal Ideation and negative for Homicidal Ideation Depressive Symptoms: Diff. Making Decisions, Difficulty Sleeping, Crying Spells, Hopelessness, Unhappiness, Thoughts of /Suicide and Low Self Esteem Judgement: Poor Diagnostics Vital Signs (24Hr): Vital Signs - 24 hr 08/09/20 12:00 08/09/20 16:00 08/09/20 20:30 Temperature 97.9 F 96.7 F L Pulse Rate 85 120 H 122 H Respiratory Rate 16 Blood Pressure 122/77 139/82 143/97 H Body Mass Index 24.9 Labs Results: 08/03/20 18:18 08/03/20 18:18 Imaging Radiology Impressions: ITS Impressions Head CT 08/03/20 21:21 IMPRESSION: No acute intracranial pathology. Medications Medications Current Medications Generic Name Dose Route Start Last Admin Trade Name Freq PRN Reason Stop Dose Admin Acetaminophen 650 mg 08/04/20 18:27 Acetaminophen 325 Mg Tablet PO Q6H PRN Headache/Pain Mild Scale (1-3) Al Hydroxide/Mg Hydroxide 30 ml 08/04/20 18:27 Magnesium Hydrox/Alum Hydrox 30 Ml Oral.Susp PO Q6H PRN Heartburn/Nausea Hydroxyzine HCl 25 mg 08/04/20 18:27 08/09/20 03:08 Hydroxyzine Hcl 25 Mg Tablet PO 25 mg BEDTIME PRN Administration Anxiety Lorazepam 1 mg 08/04/20 18:27 08/10/20 08:12 Lorazepam 1 Mg Tablet PO 1 mg RQ4H PRN Administration anxiety/restlessness Magnesium Hydroxide 30 ml 08/04/20 18:27 Milk Of Magnesia 30 Ml Oral.Susp PO DAILY PRN Constipation Olanzapine 5 mg 08/04/20 18:27 08/10/20 08:13 Olanzapine 5 Mg Tablet PO 5 mg RQ4H PRN Administration anxiety/restlessness Olanzapine 5 mg 08/07/20 09:00 08/10/20 08:12 Olanzapine 5 Mg Tablet PO 5 mg DAILY LU Administration Olanzapine 15 mg 08/06/20 21:00 08/09/20 20:25 Olanzapine 10 Mg Tablet PO 15 mg BEDTIME LU Administration Trazodone HCl 50 mg 08/04/20 18:27 Trazodone Hcl 50 Mg Tablet PO BEDTIME PRN Insomnia Allergies Allergies Allergy/AdvReac Type Severity Reaction Status Date / Time No Known Allergies Allergy Verified 08/03/20 18:02 Assessment & Plan Assessment & Plan (1) Bipolar 1 disorder, depressed, severe: Status: Acute Code(s): F31.4 - Bipolar disorder, current episode depressed, severe, without psychotic features Assessment and Plan: Close observation Switch to zydis CT treatment plan Greater than 50% of the session was spent on counseling and/or coordination of care Patient educated on: diagnosis and medication risk/benefits Informed Consent: does not understand Reason for contiued inpatient stay Substantial Risk for: harm to self, harm to others, inability to function and rapid decompensation
[2020-08-10] MEDS: Benztropine Mesylate 1 MG TABLET PO (09:59)
[2020-08-10] MEDS: HaloperidoL 5 MG TABLET PO (09:59)
[2020-08-10] MEDS: LORazepam 1 MG TABLET 2 MG PO (10:00)
[2020-08-10] MEDS: Benztropine Mesylate 2 MG/2 ML VIAL 1 MG IM (11:20)
[2020-08-10] MEDS: LORazepam 2 MG/ML VIAL IM (11:21)
[2020-08-10] MEDS: Haloperidol Lactate 5 MG/ML VIAL IM (11:21)
[2020-08-10 12:00] VITALS: BP 132/55; PULSE 80; TEMP 36.6
--- NOTE | 2020-08-10 17:25 | PC.NURSE ---
MEDICATION RESTRAINT NOTE: PATIENT LEFT UNIT WITHOUT AUTHORIZATION AT 1030. PATIENT ESCORTED BACK TO UNIT BY STAFF. PATIENT VERY AGITATED WITH PARANOID BEHAVIORS UNABLE TO TAKE REDIRECTION. PATIENT LOUD, YELLING HE WAS BEING POISONED AND HE WAS BEING KEPT HERE HOSTAGE PATIENT CONTINUED THIS BEHAVIOR IN HIS ROOM. THIS RN ATTEMPTED TO SPEAK WITH PATIENT WHO THREATENED HER AND YELLED IN HER FACE. PATIENT KICKING CHAIR AND BED. ORAL PRN MEDICATIONS HAD BEEN ADMINISTERED WITH MINIMAL AFFECT. DR NÉSTOR PONCE ON UNIT, ORDERED ATIVAN 2MG IM STAT, HALDOL 5MG IM STAT AND COGENTIN 1MG IM STAT. IM MEDICATIONS GIVEN BY THIS RN AT 1045. PATIENT ACCEPTED MEDICATION WITHOUT RESISTANCE. PATIENT ASSESSED EVERY 15 MINUTES AFTER MED ADMINISTRATION. PATIENT VITALS STABLE DONE Q 15 MINUTES X 4, SKIN WARM AND DRY. PATIENT SLEEPING AT THIS TIME. PATIENT'S MOTHER, BRIANNE NOTIFIED OF SITUATION AND IM MEDICATION ADMINISTRATION. PATIENT REMAINS ON CLOSE OBSERVATION TO MAINTAIN SAFETY.
[2020-08-10 20:00] VITALS: BP 120/78; PULSE 83; TEMP 36.5
[2020-08-10] MEDS: OLANZapine ODT 10 MG TAB.RAPDIS 20 MG TRANSLINGU (20:43)
[2020-08-11 04:30] VITALS: BP 144/98; PULSE 112; RESP 18; TEMP 36.2; O2SAT 99
[2020-08-11] MEDS: LORazepam 1 MG TABLET PO ×4 (04:51→23:57)
[2020-08-11] MEDS: OLANZapine 5 MG TABLET PO ×3 (04:51→13:08)
[2020-08-11 08:00] VITALS: BP 144/98; PULSE 112; TEMP 36.3; O2SAT 99
--- NOTE | 2020-08-11 09:32 | HO.PSYCHPN ---
Subjective Subjective Date of Service: 08/11/20 Reason For Visit: psychosis Subjective Notes: Conditional Voluntary Interim History: Marlon was initially calm and seemed more organized in his thinking but he quickly escalated to be agitated and claiming that he had been mislead into retracting his three day notice. He was paranoid and increasingly voiced delusional thinking about some sort of conspiracy. He started yelling and running up and down the halls. Medication Compliance: Yes Side effects from medications: No Attending Groups: No Review of Systems Acute medical concerns: No Medical Review of Systems: unchanged Mental Status Exam Mental Status Exam Patient Appearance: Well Grooomed Patient Orientation: Person and Place Level of Consciousness: Combative Patient Behavior: Guarded, Suspicious, Belligerent, Anxious, Fearful and Combative Mood Description: Fearful, Hostile and Angry Affect Description: Withdrawn, Fearful, Blunted and Angry Patient Cognition Impaired: No Ability to Follow Directions: Poor Speech Pattern: Spontaneous Speech, Loud, Pressured and Includes Profanity Memory Description: Intact Hallucinations: None Delusions: Not Present Thought Process: Intact and Rumination Thought Content: positive for Evasive, negative for Suicidal Ideation and negative for Homicidal Ideation Depressive Symptoms: Diff. Making Decisions, Difficulty Sleeping, Crying Spells, Hopelessness, Unhappiness, Thoughts of /Suicide and Low Self Esteem Judgement: Poor Diagnostics Vital Signs (24Hr): Vital Signs - 24 hr 08/10/20 12:00 08/10/20 20:00 08/11/20 04:30 Temperature 98 F 97.7 F 97.2 F Pulse Rate 80 83 112 H Respiratory Rate 18 Blood Pressure 132/55 L 120/78 144/98 H Pulse Oximetry 99 Body Mass Index 24.9 Labs Results: 08/03/20 18:18 08/03/20 18:18 Imaging Radiology Impressions: ITS Impressions Head CT 08/03/20 21:21 IMPRESSION: No acute intracranial pathology. Medications Medications Current Medications Generic Name Dose Route Start Last Admin Trade Name Freq PRN Reason Stop Dose Admin Acetaminophen 650 mg 08/04/20 18:27 Acetaminophen 325 Mg Tablet PO Q6H PRN Headache/Pain Mild Scale (1-3) Al Hydroxide/Mg Hydroxide 30 ml 08/04/20 18:27 Magnesium Hydrox/Alum Hydrox 30 Ml Oral.Susp PO Q6H PRN Heartburn/Nausea Hydroxyzine HCl 25 mg 08/04/20 18:27 08/09/20 03:08 Hydroxyzine Hcl 25 Mg Tablet PO 25 mg BEDTIME PRN Administration Anxiety Lorazepam 1 mg 08/04/20 18:27 08/11/20 08:36 Lorazepam 1 Mg Tablet PO 1 mg RQ4H PRN Administration anxiety/restlessness Magnesium Hydroxide 30 ml 08/04/20 18:27 Milk Of Magnesia 30 Ml Oral.Susp PO DAILY PRN Constipation Olanzapine 5 mg 08/04/20 18:27 08/11/20 04:51 Olanzapine 5 Mg Tablet PO 5 mg RQ4H PRN Administration anxiety/restlessness Olanzapine 20 mg 08/10/20 21:00 08/10/20 20:43 Olanzapine Odt 10 Mg Tab.Rapdis TRANSLINGU 20 mg BEDTIME LU Administration Olanzapine 10 mg 08/12/20 09:00 Olanzapine Odt 10 Mg Tab.Rapdis TRANSLINGU DAILY LU Trazodone HCl 50 mg 08/04/20 18:27 Trazodone Hcl 50 Mg Tablet PO BEDTIME PRN Insomnia Allergies Allergies Allergy/AdvReac Type Severity Reaction Status Date / Time No Known Allergies Allergy Verified 08/03/20 18:02 Assessment & Plan Assessment & Plan (1) Bipolar 1 disorder, depressed, severe: Status: Acute Code(s): F31.4 - Bipolar disorder, current episode depressed, severe, without psychotic features Assessment and Plan: Increase zyprexa Greater than 50% of the session was spent on counseling and/or coordination of care Patient educated on: diagnosis and medication risk/benefits Informed Consent: further education needed Reason for contiued inpatient stay Substantial Risk for: rapid decompensation
[2020-08-11 16:40] VITALS: BP 148/82; PULSE 97; TEMP 36.3
--- NOTE | 2020-08-11 19:17 | PC.NURSE ---
pt offered and declined to participate in debriefing form post im yesterday. ''i don't have any issues with it''
[2020-08-11] MEDS: OLANZapine ODT 10 MG TAB.RAPDIS 20 MG TRANSLINGU (21:14)
[2020-08-11 21:15] VITALS: BP 149/86; PULSE 96
[2020-08-11] MEDS: hydrOXYzine HCL 25 MG TABLET PO (23:57)
[2020-08-12] MEDS: LORazepam 1 MG TABLET PO ×3 (08:45→18:31)
[2020-08-12] MEDS: OLANZapine ODT 10 MG TAB.RAPDIS TRANSLINGU (08:45)
--- NOTE | 2020-08-12 09:18 | HO.PSYCHPN ---
Subjective Subjective Date of Service: 08/12/20 Reason For Visit: psychosis Subjective Notes: Conditional Voluntary Interim History: Marlon has been somewhat calmer today, but he continues to assert that he does not need to be in the hospital and that he does not need medications. When efforts are made to talk with him about any treatment issues he quickly escalates and becomes very angry and paranoid. He insists that he does not have bipolar disorder and that he does not need a mood stabilizer. Medication Compliance: Yes Side effects from medications: No Attending Groups: No Review of Systems Acute medical concerns: No Medical Review of Systems: unchanged Mental Status Exam Mental Status Exam Patient Appearance: Well Grooomed Patient Orientation: Person and Place Level of Consciousness: Awake and Combative (at times) Patient Behavior: Guarded, Suspicious, Belligerent (At times), Anxious, Fearful and Combative (at times) Mood Description: Fearful, Hostile and Angry Affect Description: Withdrawn, Fearful, Blunted and Angry Patient Cognition Impaired: No Ability to Follow Directions: Poor Speech Pattern: Spontaneous Speech, Loud, Pressured and Includes Profanity Memory Description: Intact Hallucinations: None Delusions: Not Present Thought Process: Intact and Rumination Thought Content: positive for Evasive, negative for Suicidal Ideation and negative for Homicidal Ideation Depressive Symptoms: Diff. Making Decisions, Difficulty Sleeping, Crying Spells, Hopelessness, Unhappiness, Thoughts of /Suicide and Low Self Esteem Judgement: Poor Diagnostics Vital Signs (24Hr): Vital Signs - 24 hr 08/11/20 16:40 08/11/20 21:15 Temperature 97.3 F Pulse Rate 97 96 Blood Pressure 148/82 H 149/86 H Body Mass Index 24.9 Labs Results: 08/03/20 18:18 08/03/20 18:18 Imaging Radiology Impressions: ITS Impressions Head CT 08/03/20 21:21 IMPRESSION: No acute intracranial pathology. Medications Medications Current Medications Generic Name Dose Route Start Last Admin Trade Name Freq PRN Reason Stop Dose Admin Acetaminophen 650 mg 08/04/20 18:27 Acetaminophen 325 Mg Tablet PO Q6H PRN Headache/Pain Mild Scale (1-3) Al Hydroxide/Mg Hydroxide 30 ml 08/04/20 18:27 Magnesium Hydrox/Alum Hydrox 30 Ml Oral.Susp PO Q6H PRN Heartburn/Nausea Hydroxyzine HCl 25 mg 08/04/20 18:27 08/11/20 23:57 Hydroxyzine Hcl 25 Mg Tablet PO 25 mg BEDTIME PRN Administration Anxiety Lorazepam 1 mg 08/04/20 18:27 08/12/20 08:45 Lorazepam 1 Mg Tablet PO 1 mg RQ4H PRN Administration anxiety/restlessness Magnesium Hydroxide 30 ml 08/04/20 18:27 Milk Of Magnesia 30 Ml Oral.Susp PO DAILY PRN Constipation Olanzapine 5 mg 08/04/20 18:27 08/11/20 13:08 Olanzapine 5 Mg Tablet PO 5 mg RQ4H PRN Administration anxiety/restlessness Olanzapine 20 mg 08/10/20 21:00 08/11/20 21:14 Olanzapine Odt 10 Mg Tab.Rapdis TRANSLINGU 20 mg BEDTIME LU Administration Olanzapine 10 mg 08/12/20 09:00 08/12/20 08:45 Olanzapine Odt 10 Mg Tab.Rapdis TRANSLINGU 10 mg DAILY LU Administration Trazodone HCl 50 mg 08/04/20 18:27 Trazodone Hcl 50 Mg Tablet PO BEDTIME PRN Insomnia Allergies Allergies Allergy/AdvReac Type Severity Reaction Status Date / Time No Known Allergies Allergy Verified 08/03/20 18:02 Assessment & Plan Assessment & Plan (1) Bipolar 1 disorder, depressed, severe: Status: Acute Code(s): F31.4 - Bipolar disorder, current episode depressed, severe, without psychotic features Assessment and Plan: CT to encourage depakote trial CT zyprexa for now. Collect collateral history from family Greater than 50% of the session was spent on counseling and/or coordination of care Patient educated on: diagnosis and medication risk/benefits Reason for contiued inpatient stay Substantial Risk for: inability to function and rapid decompensation
[2020-08-12 12:00] VITALS: BP 131/77; RESP 120
[2020-08-12] MEDS: OLANZapine 5 MG TABLET PO (13:36)
[2020-08-12 15:13] VITALS: BMI 32.1
[2020-08-12 16:00] VITALS: BP 139/66; PULSE 89; TEMP 37.1
[2020-08-12 20:00] VITALS: BP 140/85; PULSE 104; TEMP 36.9
[2020-08-12] MEDS: OLANZapine ODT 10 MG TAB.RAPDIS 20 MG TRANSLINGU (20:45)
[2020-08-12 23:55] VITALS: BP 133/91; PULSE 94; RESP 16; O2SAT 97
[2020-08-13] MEDS: LORazepam 1 MG TABLET PO ×4 (08:52→19:54)
[2020-08-13] MEDS: OLANZapine ODT 10 MG TAB.RAPDIS TRANSLINGU (08:55)
--- NOTE | 2020-08-13 09:31 | P.PNPSI_ITS ---
Subjective Subjective Date of Service: 08/13/20 Reason For Visit: psychosis Subjective Notes: Conditional Voluntary Interim History: Marlon has been guarded and agitated. He continues to insist that he needs to leave immediately and he starts talking about the staff using food to bribe people because of their different races and that it is in the staff's mandate to keep people in the hospital for their own incentive. He did accept depakote. Records were received from his stay at [facility] when he was prescribed haldol and risperdal with some effect. Medication Compliance: Intermittent Side effects from medications: No Attending Groups: No Review of Systems Acute medical concerns: No Medical Review of Systems: unchanged Mental Status Exam Mental Status Exam Patient Appearance: Well Grooomed Patient Orientation: Person, Place and Time Level of Consciousness: Disoriented and Alert Patient Behavior: Aggressive, Restless, Wandering, Distractible and Impulsive Mood Description: Hostile, Anxious, Labile and Angry Affect Description: Hostile, Anxious, Labile and Angry Speech Pattern: Perseverating Memory Description: Immediate Impaired Hallucinations: Auditory Delusions: Paranoid Ideation and Present Thought Process: Rumination Thought Content: positive for Obsessional Thoughts, positive for Preoccupation, positive for Loose Associations, negative for Suicidal Ideation and negative for Homicidal Ideation Abnormal Motor Activity Signs and Symptoms: Agitation Judgement: Poor Diagnostics Vital Signs (24Hr): Vital Signs - 24 hr 08/12/20 12:00 08/12/20 16:00 08/12/20 20:00 Temperature 98.8 F 98.4 F Pulse Rate 89 104 H Respiratory Rate 120 H Blood Pressure 131/77 139/66 140/85 H Pulse Oximetry 08/12/20 23:55 Temperature Pulse Rate 94 Respiratory Rate 16 Blood Pressure 133/91 H Pulse Oximetry 97 Body Mass Index 32.1 Labs Results: 08/03/20 18:18 08/03/20 18:18 Imaging Radiology Impressions: ITS Impressions Head CT 08/03/20 21:21 IMPRESSION: No acute intracranial pathology. Medications Medications Current Medications Generic Name Dose Route Start Last Admin Trade Name Freq PRN Reason Stop Dose Admin Acetaminophen 650 mg 08/04/20 18:27 Acetaminophen 325 Mg Tablet PO Q6H PRN Headache/Pain Mild Scale (1-3) Al Hydroxide/Mg Hydroxide 30 ml 08/04/20 18:27 Magnesium Hydrox/Alum Hydrox 30 Ml Oral.Susp PO Q6H PRN Heartburn/Nausea Hydroxyzine HCl 25 mg 08/04/20 18:27 08/11/20 23:57 Hydroxyzine Hcl 25 Mg Tablet PO 25 mg BEDTIME PRN Administration Anxiety Lorazepam 1 mg 08/04/20 18:27 08/13/20 08:52 Lorazepam 1 Mg Tablet PO 1 mg RQ4H PRN Administration anxiety/restlessness Magnesium Hydroxide 30 ml 08/04/20 18:27 Milk Of Magnesia 30 Ml Oral.Susp PO DAILY PRN Constipation Olanzapine 5 mg 08/04/20 18:27 08/12/20 13:36 Olanzapine 5 Mg Tablet PO 5 mg RQ4H PRN Administration anxiety/restlessness Olanzapine 20 mg 08/10/20 21:00 08/12/20 20:45 Olanzapine Odt 10 Mg Tab.Rapdis TRANSLINGU 20 mg BEDTIME LU Administration Olanzapine 10 mg 08/12/20 09:00 08/13/20 08:55 Olanzapine Odt 10 Mg Tab.Rapdis TRANSLINGU 10 mg DAILY LU Administration Trazodone HCl 50 mg 08/04/20 18:27 Trazodone Hcl 50 Mg Tablet PO BEDTIME PRN Insomnia Allergies Allergies Allergy/AdvReac Type Severity Reaction Status Date / Time No Known Allergies Allergy Verified 08/03/20 18:02 Assessment & Plan Assessment & Plan (1) Bipolar 1 disorder, depressed, severe: Status: Acute Code(s): F31.4 - Bipolar disorder, current episode depressed, severe, without psychotic features Assessment and Plan: Add haldol and depakote CT 1:[address] zyprexa Greater than 50% of the session was spent on counseling and/or coordination of care Patient educated on: diagnosis and medication risk/benefits Informed Consent: further education needed Reason for contiued inpatient stay Substantial Risk for: inability to function and rapid decompensation
[2020-08-13] MEDS: Divalproex Sodium 500 MG TABLET.DR PO ×2 (10:21→20:38)
[2020-08-13] MEDS: OLANZapine 5 MG TABLET PO (12:16)
[2020-08-13 16:00] VITALS: BP 131/70; PULSE 121; TEMP 36.4
[2020-08-13] MEDS: HaloperidoL 5 MG TABLET PO ×2 (17:07→20:39)
[2020-08-13 20:00] VITALS: BP 97/54; PULSE 69; TEMP 36.3
[2020-08-13] MEDS: Benztropine Mesylate 0.5 MG TABLET 1 MG PO (20:39)
[2020-08-13] MEDS: OLANZapine ODT 10 MG TAB.RAPDIS 20 MG TRANSLINGU (20:39)
[2020-08-14 04:00] VITALS: BP 139/68; PULSE 80; TEMP 36.2
[2020-08-14] MEDS: Benztropine Mesylate 0.5 MG TABLET 1 MG PO ×2 (08:48→20:58)
[2020-08-14] MEDS: HaloperidoL 5 MG TABLET PO ×3 (08:48→20:59)
[2020-08-14] MEDS: OLANZapine ODT 10 MG TAB.RAPDIS TRANSLINGU (08:49)
[2020-08-14] MEDS: Divalproex Sodium 500 MG TABLET.DR PO ×2 (08:49→20:59)
[2020-08-14] MEDS: LORazepam 1 MG TABLET PO ×2 (08:50→13:26)
--- NOTE | 2020-08-14 11:02 | HO.PSYCHPN ---
Subjective Subjective Date of Service: 08/14/20 Reason For Visit: psychosis Subjective Notes: 3 Day Interim History: Pt has been intermittently agitated about being here feels it is toxic for him to be in hospital reports they gave him something in his pie before he was admitted after meeting with this provider and told he would have to stay weekend and 3 day he became angry walked to his room and kicked the door and hit the wall then paced in roman and tried to run at door- stopped by staff went back to his room, security came up to talk with pt Medication Compliance: Yes Side effects from medications: Yes (co dry mouth) Attending Groups: No Review of Systems Acute medical concerns: No Medical Review of Systems: unchanged Mental Status Exam Mental Status Exam Patient Appearance: Appropriate Patient Orientation: Person, Place and Time Level of Consciousness: Awake Patient Behavior: Guarded, Suspicious, Aggressive, Impulsive and Pacing Mood Description: Labile Affect Description: Suspicious and Labile Patient Cognition Impaired: No Ability to Follow Directions: Poor Speech Pattern: Clear Memory Description: Intact Delusions: Paranoid Ideation Thought Process: Goal Oriented (focused on leaving hospital) Thought Content: positive for Perseveration Abnormal Motor Activity Signs and Symptoms: Psychomotor Retardation Judgement: Poor Diagnostics Vital Signs (24Hr): Vital Signs - 24 hr 08/13/20 16:00 08/13/20 20:00 08/14/20 04:00 Temperature 97.6 F 97.4 F 97.1 F Pulse Rate 121 H 69 80 Blood Pressure 131/70 97/54 L 139/68 Body Mass Index 32.1 Labs Results: 08/03/20 18:18 08/03/20 18:18 Imaging Radiology Impressions: ITS Impressions Head CT 08/03/20 21:21 IMPRESSION: No acute intracranial pathology. Medications Medications Current Medications Generic Name Dose Route Start Last Admin Trade Name Freq PRN Reason Stop Dose Admin Acetaminophen 650 mg 08/04/20 18:27 Acetaminophen 325 Mg Tablet PO Q6H PRN Headache/Pain Mild Scale (1-3) Al Hydroxide/Mg Hydroxide 30 ml 08/04/20 18:27 Magnesium Hydrox/Alum Hydrox 30 Ml Oral.Susp PO Q6H PRN Heartburn/Nausea Benztropine Mesylate 1 mg 08/13/20 15:51 Benztropine Mesylate 1 Mg Tablet PO RQ4H PRN Extrapyramidal Effects Benztropine Mesylate 1 mg 08/13/20 21:00 08/14/20 08:48 Benztropine Mesylate 0.5 Mg Tablet PO 1 mg BID UL Administration Divalproex Sodium 500 mg 08/13/20 21:00 08/14/20 08:49 Divalproex Sodium 500 Mg Tablet.Dr PO 500 mg BID LU Administration Haloperidol 5 mg 08/13/20 15:51 08/13/20 17:07 Haloperidol 5 Mg Tablet PO 5 mg RQ4H PRN Administration Agitation Haloperidol 5 mg 08/13/20 21:00 08/14/20 08:48 Haloperidol 5 Mg Tablet PO 5 mg BID LU Administration Hydroxyzine HCl 25 mg 08/04/20 18:27 08/11/20 23:57 Hydroxyzine Hcl 25 Mg Tablet PO 25 mg BEDTIME PRN Administration Anxiety Lorazepam 1 mg 08/04/20 18:27 08/13/20 15:08 Lorazepam 1 Mg Tablet PO 1 mg RQ4H PRN Administration anxiety/restlessness Lorazepam 1 mg 08/13/20 15:51 08/14/20 08:50 Lorazepam 1 Mg Tablet PO 1 mg RQ4H PRN Administration Agitation Magnesium Hydroxide 30 ml 08/04/20 18:27 Milk Of Magnesia 30 Ml Oral.Susp PO DAILY PRN Constipation Olanzapine 5 mg 08/04/20 18:27 08/13/20 12:16 Olanzapine 5 Mg Tablet PO 5 mg RQ4H PRN Administration anxiety/restlessness Olanzapine 20 mg 08/10/20 21:00 08/13/20 20:39 Olanzapine Odt 10 Mg Tab.Rapdis TRANSLINGU 20 mg BEDTIME LU Administration Olanzapine 10 mg 08/12/20 09:00 08/14/20 08:49 Olanzapine Odt 10 Mg Tab.Rapdis TRANSLINGU 10 mg DAILY LU Administration Trazodone HCl 50 mg 08/04/20 18:27 Trazodone Hcl 50 Mg Tablet PO BEDTIME PRN Insomnia Allergies Allergies Allergy/AdvReac Type Severity Reaction Status Date / Time No Known Allergies Allergy Verified 08/03/20 18:02 Assessment & Plan Assessment & Plan (1) Schizophrenia: Status: Acute Code(s): F20.9 - Schizophrenia, unspecified Assessment and Plan: ongoing psychosis - feels unsafe in hospital - Greater than 50% of the session was spent on counseling and/or coordination of care
[2020-08-14 11:52] VITALS: BP 134/71; PULSE 109; O2SAT 97
[2020-08-14] MEDS: OLANZapine 5 MG TABLET PO (13:26)
[2020-08-14] MEDS: Benztropine Mesylate 1 MG TABLET PO (16:26)
[2020-08-14 16:42] VITALS: BP 129/73; PULSE 92; TEMP 35.1; O2SAT 96
[2020-08-14] MEDS: OLANZapine ODT 10 MG TAB.RAPDIS 20 MG TRANSLINGU (20:59)
[2020-08-14 22:00] VITALS: BP 136/78; PULSE 100
[2020-08-15 06:59] VITALS: BP 145/76; PULSE 101; TEMP 36.1
[2020-08-15] MEDS: Divalproex Sodium 500 MG TABLET.DR PO ×2 (07:26→21:09)
[2020-08-15] MEDS: HaloperidoL 5 MG TABLET PO ×5 (07:27→21:10)
[2020-08-15] MEDS: OLANZapine ODT 10 MG TAB.RAPDIS TRANSLINGU (07:27)
[2020-08-15] MEDS: LORazepam 1 MG TABLET PO ×2 (07:27→08:47)
[2020-08-15] MEDS: Benztropine Mesylate 0.5 MG TABLET 1 MG PO ×2 (07:28→21:10)
[2020-08-15] MEDS: Benztropine Mesylate 1 MG TABLET PO ×2 (08:47→15:44)
--- NOTE | 2020-08-15 14:38 | HO.PSYCHPN ---
Subjective Subjective Date of Service: 08/15/20 Reason For Visit: psychosis Subjective Notes: 3 Day Interim History: Pt agitated this am - banging the door- repeatedly kicking received mutliple prns and is now tired- and sleeping did sleep last pm Medication Compliance: Yes Side effects from medications: No Attending Groups: No Review of Systems Acute medical concerns: No Medical Review of Systems: unchanged Mental Status Exam Mental Status Exam Narrative: walking down roman, sleepy, went into bed- and fell asleep Patient Appearance: Fatigued Patient Orientation: Person and Place Level of Consciousness: Sedated Patient Behavior: Cooperative Mood Description: Angry Affect Description: Labile Patient Cognition Impaired: No Ability to Follow Directions: Poor Speech Pattern: Clear Delusions: Paranoid Ideation Depressive Symptoms: Muscle Tension and Increased Irritability Judgement: Poor Diagnostics Vital Signs (24Hr): Vital Signs - 24 hr 08/14/20 16:42 08/14/20 22:00 08/15/20 06:59 Temperature 95.2 F L 97.0 F Pulse Rate 92 100 101 H Blood Pressure 129/73 136/78 145/76 H Pulse Oximetry 96 Body Mass Index 32.1 Labs Results: 08/03/20 18:18 08/03/20 18:18 Imaging Radiology Impressions: ITS Impressions Head CT 08/03/20 21:21 IMPRESSION: No acute intracranial pathology. Medications Medications Current Medications Generic Name Dose Route Start Last Admin Trade Name Freq PRN Reason Stop Dose Admin Acetaminophen 650 mg 08/04/20 18:27 Acetaminophen 325 Mg Tablet PO Q6H PRN Headache/Pain Mild Scale (1-3) Al Hydroxide/Mg Hydroxide 30 ml 08/04/20 18:27 Magnesium Hydrox/Alum Hydrox 30 Ml Oral.Susp PO Q6H PRN Heartburn/Nausea Benztropine Mesylate 1 mg 08/13/20 15:51 08/15/20 08:47 Benztropine Mesylate 1 Mg Tablet PO 1 mg RQ4H PRN Administration Extrapyramidal Effects Benztropine Mesylate 1 mg 08/13/20 21:00 08/15/20 07:28 Benztropine Mesylate 0.5 Mg Tablet PO 1 mg BID LU Administration Divalproex Sodium 500 mg 08/13/20 21:00 08/15/20 07:26 Divalproex Sodium 500 Mg Tablet.Dr PO 500 mg BID LU Administration Haloperidol 5 mg 08/13/20 15:51 08/15/20 08:47 Haloperidol 5 Mg Tablet PO 5 mg RQ4H PRN Administration Agitation Haloperidol 5 mg 08/15/20 15:00 08/15/20 14:17 Haloperidol 5 Mg Tablet PO 5 mg TID LU Administration Hydroxyzine HCl 25 mg 08/04/20 18:27 08/11/20 23:57 Hydroxyzine Hcl 25 Mg Tablet PO 25 mg BEDTIME PRN Administration Anxiety Lorazepam 2 mg 08/15/20 10:35 Lorazepam 1 Mg Tablet PO RQ4H PRN Agitation Magnesium Hydroxide 30 ml 08/04/20 18:27 Milk Of Magnesia 30 Ml Oral.Susp PO DAILY PRN Constipation Olanzapine 5 mg 08/04/20 18:27 08/14/20 13:26 Olanzapine 5 Mg Tablet PO 5 mg RQ4H PRN Administration anxiety/restlessness Olanzapine 20 mg 08/10/20 21:00 08/14/20 20:59 Olanzapine Odt 10 Mg Tab.Rapdis TRANSLINGU 20 mg BEDTIME LU Administration Olanzapine 10 mg 08/12/20 09:00 08/15/20 07:27 Olanzapine Odt 10 Mg Tab.Rapdis TRANSLINGU 10 mg DAILY LU Administration Trazodone HCl 50 mg 08/04/20 18:27 Trazodone Hcl 50 Mg Tablet PO BEDTIME PRN Insomnia Allergies Allergies Allergy/AdvReac Type Severity Reaction Status Date / Time No Known Allergies Allergy Verified 08/03/20 18:02 Assessment & Plan Assessment & Plan (1) Schizophrenia: Status: Acute Code(s): F20.9 - Schizophrenia, unspecified Assessment and Plan: ongoing acute psychosis Greater than 50% of the session was spent on counseling and/or coordination of care
[2020-08-15 17:22] VITALS: BP 139/86; PULSE 102; TEMP 36.8; O2SAT 97
[2020-08-15] MEDS: LORazepam 1 MG TABLET 2 MG PO (18:47)
[2020-08-15] MEDS: OLANZapine ODT 10 MG TAB.RAPDIS 20 MG TRANSLINGU (21:09)
[2020-08-16] MEDS: OLANZapine ODT 10 MG TAB.RAPDIS TRANSLINGU (08:43)
[2020-08-16] MEDS: LORazepam 1 MG TABLET 2 MG PO (08:44)
[2020-08-16] MEDS: HaloperidoL 5 MG TABLET PO ×3 (08:45→21:39)
[2020-08-16] MEDS: Divalproex Sodium 500 MG TABLET.DR PO ×2 (08:45→21:39)
[2020-08-16] MEDS: Benztropine Mesylate 0.5 MG TABLET 1 MG PO ×2 (08:45→21:39)
--- NOTE | 2020-08-16 09:23 | HO.PSYCHPN ---
Subjective Subjective Date of Service: 08/16/20 Reason For Visit: psychosis Subjective Notes: Dougherty Warning and 3 Day Interim History: Marlon boogieues to be very easily agitated and fixated on needing to leave the hospital. He has difficulty formulating a thought and becomes very frustrated. He is paranoid about the food, a conspiracy to keep him in the hospital and other ideas that are hard to follow. At about 10am, he slammed against the door of the office that this documentation writer was in with another patient, screaming profanity. Following this he became loud, angry and menacing toward an RN when she was offering him medication. He was pacing agitatedly and threatening. As a result he was administered im haldol, ativan and cogentin. He accepted this without incident. He was seen at 10.30am. He declined to talk with this documentation writer. He was comfortable, had no apparent side effects and was calmer. Consult by Dr. Himanshu carvalho. Medication Compliance: Intermittent Side effects from medications: No Attending Groups: No Review of Systems Acute medical concerns: No Medical Review of Systems: unchanged Mental Status Exam Mental Status Exam Patient Appearance: Disheveled Patient Orientation: Person, Place, Time and Situation Level of Consciousness: Restless and Lethargic Patient Behavior: Guarded, Aggressive and Uncooperative Mood Description: Suspicious, Hostile and Anxious Patient Cognition Impaired: No Ability to Follow Directions: Good Speech Pattern: Slurred, Difficulty Finding Words and Poor Articulation Memory Description: Intact (not formally tested) Hallucinations: None (denied) Thought Process: Illogical and Rumination Thought Content: positive for Thought Blocking and positive for Disorganized Depressive Symptoms: Unhappiness and Increased Fatigue Abnormal Motor Activity Signs and Symptoms: Aggression and Agitation Diagnostics Vital Signs (24Hr): Vital Signs - 24 hr 08/15/20 17:22 Temperature 98.3 F Pulse Rate 102 H Blood Pressure 139/86 Pulse Oximetry 97 Body Mass Index 32.1 Labs Results: 08/03/20 18:18 08/03/20 18:18 Imaging Radiology Impressions: ITS Impressions Head CT 08/03/20 21:21 IMPRESSION: No acute intracranial pathology. Medications Medications Current Medications Generic Name Dose Route Start Last Admin Trade Name Freq PRN Reason Stop Dose Admin Acetaminophen 650 mg 08/04/20 18:27 Acetaminophen 325 Mg Tablet PO Q6H PRN Headache/Pain Mild Scale (1-3) Al Hydroxide/Mg Hydroxide 30 ml 08/04/20 18:27 Magnesium Hydrox/Alum Hydrox 30 Ml Oral.Susp PO Q6H PRN Heartburn/Nausea Benztropine Mesylate 1 mg 08/13/20 15:51 08/15/20 15:44 Benztropine Mesylate 1 Mg Tablet PO 1 mg RQ4H PRN Administration Extrapyramidal Effects Benztropine Mesylate 1 mg 08/13/20 21:00 08/16/20 08:45 Benztropine Mesylate 0.5 Mg Tablet PO 1 mg BID LU Administration Divalproex Sodium 500 mg 08/13/20 21:00 08/16/20 08:45 Divalproex Sodium 500 Mg Tablet.Dr PO 500 mg BID LU Administration Haloperidol 5 mg 08/13/20 15:51 08/15/20 15:44 Haloperidol 5 Mg Tablet PO 5 mg RQ4H PRN Administration Agitation Haloperidol 5 mg 08/15/20 15:00 08/16/20 08:45 Haloperidol 5 Mg Tablet PO 5 mg TID LU Administration Hydroxyzine HCl 25 mg 08/04/20 18:27 08/11/20 23:57 Hydroxyzine Hcl 25 Mg Tablet PO 25 mg BEDTIME PRN Administration Anxiety Lorazepam 2 mg 08/15/20 10:35 08/16/20 08:44 Lorazepam 1 Mg Tablet PO 2 mg RQ4H PRN Administration Agitation Magnesium Hydroxide 30 ml 08/04/20 18:27 Milk Of Magnesia 30 Ml Oral.Susp PO DAILY PRN Constipation Olanzapine 5 mg 08/04/20 18:27 08/14/20 13:26 Olanzapine 5 Mg Tablet PO 5 mg RQ4H PRN Administration anxiety/restlessness Olanzapine 20 mg 08/10/20 21:00 08/15/20 21:09 Olanzapine Odt 10 Mg Tab.Rapdis TRANSLINGU 20 mg BEDTIME LU Administration Olanzapine 10 mg 08/12/20 09:00 08/16/20 08:43 Olanzapine Odt 10 Mg Tab.Rapdis TRANSLINGU 10 mg DAILY LU Administration Trazodone HCl 50 mg 08/04/20 18:27 Trazodone Hcl 50 Mg Tablet PO BEDTIME PRN Insomnia Allergies Allergies Allergy/AdvReac Type Severity Reaction Status Date / Time No Known Allergies Allergy Verified 08/03/20 18:02 Assessment & Plan Assessment & Plan (1) Bipolar 1 disorder, depressed, severe: Status: Acute Code(s): F31.4 - Bipolar disorder, current episode depressed, severe, without psychotic features Assessment and Plan: CT depkaote, haldol and zyprexa Petition for commitment given his level of reactivity and agitation, as well as difficulty with thought. Greater than 50% of the session was spent on counseling and/or coordination of care Patient educated on: diagnosis and medication risk/benefits Informed Consent: does not understand Reason for contiued inpatient stay Substantial Risk for: harm to others, inability to function and rapid decompensation
[2020-08-16 09:51] LABS: Valproate 53.3 mcg/mL (50.0-100.0)
[2020-08-16] MEDS: Haloperidol Lactate 5 MG/ML VIAL 10 MG IM (10:15)
[2020-08-16] MEDS: LORazepam 2 MG/ML VIAL 1 MG IM (10:15)
[2020-08-16] MEDS: Benztropine Mesylate 2 MG/2 ML VIAL 1 MG IM (10:15)
[2020-08-16 10:30] VITALS: BP 132/83; PULSE 103; RESP 18; TEMP 37.1; O2SAT 99
--- NOTE | 2020-08-16 12:12 | P.CNPS_ITS ---
History of Present Illness Date of Service: 08/16/2020 Chief Complaint: psychosis Reason for Consult: Evaluation/second opinion Requesting physician: Lyla Mtz Discussed with referring provider: Yes Sources of Information: patient interviewed, chart reviewed and crisis/core team assessment reviewed HPI Narrative: I have reviewed the chart in detail and CARE assessment. I have also observed pts behavior on unit. Pt presents with marked lability. Was noted to be suicidal on intial presentation , later recanted. Has been observed to be thought blocking and lee spicious on several occasions by staff. He denies all Sx and simply restates that he wants DC. Stated he came to the hospiotal of a panic attack, called BS then 911. He is not amenable to direct questioning about Sx. Got inctreasing restless. He was noted to be slowed/thought blocking and unable to formulate thoughts. He stated there was some game playing between the ED POD and [facility]5 to get him up here. He denied AH. Pt has had several episodes of extreme agitation and aggression (kicking doors), threatening and menacing to staff. He has also attempted to elope x 2. Past Psychiatric History: Several admissions in last 10 years. Full history of medication trials is not known. He has been on lamictal, risperdal, lexapro and hydroxyzine Medical Evaluation Reviewed: Yes Personal & Social History: As noted in [facility] and [facility] Medical History (Updated 08/14/20 @ 21:55 by Sofy Menchaca MD) Depression Schizophrenia Suicidal behavior Family History: Father has bipolar disorder Social History: On disability Currently lives with his cousin Parents are . His mother reports tumultuous upbringing Diagnostics Vital Signs (24Hr): Vital Signs - 24 hr 08/15/20 17:22 Temperature 98.3 F Pulse Rate 102 H Blood Pressure 139/86 Pulse Oximetry 97 Body Mass Index 32.1 Labs Results: 08/03/20 18:18 08/03/20 18:18 Labs: Laboratory Results - last 48 hr 08/16/20 08:40 Valproic Acid 53.3 Imaging Radiology Impressions: ITS Impressions Head CT 08/03/20 21:21 IMPRESSION: No acute intracranial pathology. Mental Status Exam Mental Status Exam Patient Appearance: Disheveled Patient Orientation: Person, Place, Time and Situation Level of Consciousness: Restless and Lethargic Patient Behavior: Guarded, Aggressive and Uncooperative Mood Description: Suspicious, Hostile and Anxious Patient Cognition Impaired: No Ability to Follow Directions: Good Speech Pattern: Slurred, Difficulty Finding Words and Poor Articulation Memory Description: Intact (not formally tested) Hallucinations: None (denied) Thought Process: Illogical and Rumination Thought Content: positive for Thought Blocking and positive for Disorganized Depressive Symptoms: Unhappiness and Increased Fatigue Abnormal Motor Activity Signs and Symptoms: Aggression and Agitation Medications Medications Current Medications Generic Name Dose Route Start Last Admin Trade Name Freq PRN Reason Stop Dose Admin Acetaminophen 650 mg 08/04/20 18:27 Acetaminophen 325 Mg Tablet PO Q6H PRN Headache/Pain Mild Scale (1-3) Al Hydroxide/Mg Hydroxide 30 ml 08/04/20 18:27 Magnesium Hydrox/Alum Hydrox 30 Ml Oral.Susp PO Q6H PRN Heartburn/Nausea Benztropine Mesylate 1 mg 08/13/20 15:51 08/15/20 15:44 Benztropine Mesylate 1 Mg Tablet PO 1 mg RQ4H PRN Administration Extrapyramidal Effects Benztropine Mesylate 1 mg 08/13/20 21:00 08/16/20 08:45 Benztropine Mesylate 0.5 Mg Tablet PO 1 mg BID LU Administration Divalproex Sodium 500 mg 08/13/20 21:00 08/16/20 08:45 Divalproex Sodium 500 Mg Tablet.Dr PO 500 mg BID LU Administration Haloperidol 5 mg 08/13/20 15:51 08/15/20 15:44 Haloperidol 5 Mg Tablet PO 5 mg RQ4H PRN Administration Agitation Haloperidol 5 mg 08/15/20 15:00 08/16/20 08:45 Haloperidol 5 Mg Tablet PO 5 mg TID LU Administration Hydroxyzine HCl 25 mg 08/04/20 18:27 08/11/20 23:57 Hydroxyzine Hcl 25 Mg Tablet PO 25 mg BEDTIME PRN Administration Anxiety Lorazepam 2 mg 08/15/20 10:35 08/16/20 08:44 Lorazepam 1 Mg Tablet PO 2 mg RQ4H PRN Administration Agitation Magnesium Hydroxide 30 ml 08/04/20 18:27 Milk Of Magnesia 30 Ml Oral.Susp PO DAILY PRN Constipation Olanzapine 5 mg 08/04/20 18:27 08/14/20 13:26 Olanzapine 5 Mg Tablet PO 5 mg RQ4H PRN Administration anxiety/restlessness Olanzapine 20 mg 08/10/20 21:00 08/15/20 21:09 Olanzapine Odt 10 Mg Tab.Rapdis TRANSLINGU 20 mg BEDTIME LU Administration Olanzapine 10 mg 08/12/20 09:00 08/16/20 08:43 Olanzapine Odt 10 Mg Tab.Rapdis TRANSLINGU 10 mg DAILY LU Administration Trazodone HCl 50 mg 08/04/20 18:27 Trazodone Hcl 50 Mg Tablet PO BEDTIME PRN Insomnia Allergies Allergies Allergy/AdvReac Type Severity Reaction Status Date / Time No Known Allergies Allergy Verified 08/03/20 18:02 Assessment & Plan Greater than 50% of the session was spent on counseling and/or coordination of care 26 SWM presented with SI, paranoia/extreme mood lability and several episodes of violence/aggression. Strong FH of bipola( F) Clinical picture is highly suggestive of Bipolar d/o with psychotic Sx. Given severity of observed Sx and manifest aggression and lability, FH of bipolarity and past Hx of similar presentations I would support a petition for civil commitment if needed.
--- NOTE | 2020-08-16 13:10 | PC.NURSE ---
pt was agitated early int he shift sfter meeting with the doctor. he was kicking smith screaming and continued to do so. i walked with patient to try to deescalate him and offered prns which i had in my hand. pt was not willing to take more meds po and appeared to get more agitated as i was trying to convince him to do so. he pushed his chest up against mine pushing me back spilling the water i had in my hand and cocked jis arm back as if he was going to hit me. other staff needed to grab his arms an intervene. he was given and accepted haldol 10mg, ativan 1mg and cogentin 1 mg im in the left deltoid with some effect. pt has continued to walk the hallways in a tense manner.
[2020-08-16 16:15] VITALS: BP 143/72; PULSE 98; TEMP 36.6
[2020-08-16] MEDS: OLANZapine ODT 10 MG TAB.RAPDIS 20 MG TRANSLINGU (21:38)
[2020-08-17] MEDS: LORazepam 1 MG TABLET 2 MG PO ×3 (00:56→13:39)
[2020-08-17] MEDS: traZODone HCL 50 MG TABLET PO (00:56)
[2020-08-17] MEDS: OLANZapine ODT 10 MG TAB.RAPDIS TRANSLINGU (08:39)
[2020-08-17] MEDS: HaloperidoL 5 MG TABLET PO ×3 (08:39→21:33)
[2020-08-17] MEDS: Divalproex Sodium 500 MG TABLET.DR PO ×2 (08:39→21:32)
[2020-08-17] MEDS: Benztropine Mesylate 0.5 MG TABLET 1 MG PO ×2 (08:39→21:32)
[2020-08-17 09:21] VITALS: BP 126/64; PULSE 104; TEMP 36.4; O2SAT 97
--- NOTE | 2020-08-17 14:53 | HO.PSYCHPN ---
Subjective Subjective Date of Service: 08/17/20 Reason For Visit: psychosis Subjective Notes: Dougherty Warning and Legal Status (s.7) Interim History: Marlon has been insisting on leaving, though he was less agitated. He was informed of the petition for commitment, and then left the room. He was then screaming down the roman. Medication Compliance: Intermittent Side effects from medications: Yes (Some sedation today) Attending Groups: No Review of Systems Acute medical concerns: No Medical Review of Systems: unchanged Mental Status Exam Mental Status Exam Patient Appearance: Disheveled Patient Orientation: Person, Place, Time and Situation Level of Consciousness: Restless and Lethargic Patient Behavior: Guarded, Aggressive and Uncooperative Mood Description: Suspicious, Hostile and Anxious Patient Cognition Impaired: No Ability to Follow Directions: Good Speech Pattern: Slurred, Difficulty Finding Words and Poor Articulation Memory Description: Intact (not formally tested) Hallucinations: None (denied) Delusions: Being Controlled, Paranoid Ideation, Grandiose and Present Thought Process: Illogical and Rumination Thought Content: positive for Thought Blocking, positive for Disorganized, negative for Suicidal Ideation and negative for Homicidal Ideation Depressive Symptoms: Unhappiness and Increased Fatigue Abnormal Motor Activity Signs and Symptoms: Aggression and Agitation Diagnostics Vital Signs (24Hr): Vital Signs - 24 hr 08/16/20 16:15 08/17/20 09:21 Temperature 97.9 F 97.6 F Pulse Rate 98 104 H Blood Pressure 143/72 H 126/64 Pulse Oximetry 97 Body Mass Index 32.1 Labs Results: 08/03/20 18:18 08/03/20 18:18 Labs: Laboratory Results - last 48 hr 08/16/20 08:40 Valproic Acid 53.3 Imaging Radiology Impressions: ITS Impressions Head CT 08/03/20 21:21 IMPRESSION: No acute intracranial pathology. Medications Medications Current Medications Generic Name Dose Route Start Last Admin Trade Name Freq PRN Reason Stop Dose Admin Acetaminophen 650 mg 08/04/20 18:27 Acetaminophen 325 Mg Tablet PO Q6H PRN Headache/Pain Mild Scale (1-3) Al Hydroxide/Mg Hydroxide 30 ml 08/04/20 18:27 Magnesium Hydrox/Alum Hydrox 30 Ml Oral.Susp PO Q6H PRN Heartburn/Nausea Benztropine Mesylate 1 mg 08/13/20 15:51 08/15/20 15:44 Benztropine Mesylate 1 Mg Tablet PO 1 mg RQ4H PRN Administration Extrapyramidal Effects Benztropine Mesylate 1 mg 08/13/20 21:00 08/17/20 08:39 Benztropine Mesylate 0.5 Mg Tablet PO 1 mg BID LU Administration Divalproex Sodium 500 mg 08/13/20 21:00 08/17/20 08:39 Divalproex Sodium 500 Mg Tablet.Dr PO 500 mg BID LU Administration Haloperidol 5 mg 08/13/20 15:51 08/15/20 15:44 Haloperidol 5 Mg Tablet PO 5 mg RQ4H PRN Administration Agitation Haloperidol 5 mg 08/15/20 15:00 08/17/20 13:39 Haloperidol 5 Mg Tablet PO 5 mg TID LU Administration Hydroxyzine HCl 25 mg 08/04/20 18:27 08/11/20 23:57 Hydroxyzine Hcl 25 Mg Tablet PO 25 mg BEDTIME PRN Administration Anxiety Lorazepam 2 mg 08/15/20 10:35 08/17/20 13:39 Lorazepam 1 Mg Tablet PO 2 mg RQ4H PRN Administration Agitation Magnesium Hydroxide 30 ml 08/04/20 18:27 Milk Of Magnesia 30 Ml Oral.Susp PO DAILY PRN Constipation Olanzapine 5 mg 08/04/20 18:27 08/14/20 13:26 Olanzapine 5 Mg Tablet PO 5 mg RQ4H PRN Administration anxiety/restlessness Olanzapine 20 mg 08/10/20 21:00 08/16/20 21:38 Olanzapine Odt 10 Mg Tab.Rapdis TRANSLINGU 20 mg BEDTIME LU Administration Olanzapine 10 mg 08/12/20 09:00 08/17/20 08:39 Olanzapine Odt 10 Mg Tab.Rapdis TRANSLINGU 10 mg DAILY LU Administration Trazodone HCl 50 mg 08/04/20 18:27 08/17/20 00:56 Trazodone Hcl 50 Mg Tablet PO 50 mg BEDTIME PRN Administration Insomnia Allergies Allergies Allergy/AdvReac Type Severity Reaction Status Date / Time No Known Allergies Allergy Verified 08/03/20 18:02 Assessment & Plan Assessment & Plan (1) Bipolar 1 disorder, depressed, severe: Status: Acute Code(s): F31.4 - Bipolar disorder, current episode depressed, severe, without psychotic features Assessment and Plan: CT current medication Petition the court for continued stay due to patient's paranoia and mood lability Greater than 50% of the session was spent on counseling and/or coordination of care Patient educated on: diagnosis and medication risk/benefits Informed Consent: does not understand Reason for contiued inpatient stay Substantial Risk for: harm to self, harm to others, inability to function and rapid decompensation
[2020-08-17 15:35] VITALS: BP 118/70; PULSE 90; TEMP 36.3
[2020-08-17] MEDS: OLANZapine ODT 10 MG TAB.RAPDIS 20 MG TRANSLINGU (21:32)
[2020-08-18 07:05] VITALS: BP 127/59; PULSE 77; RESP 20; TEMP 36.2
[2020-08-18] MEDS: Divalproex Sodium 500 MG TABLET.DR PO ×2 (08:49→20:37)
[2020-08-18] MEDS: LORazepam 1 MG TABLET 2 MG PO (08:49)
[2020-08-18] MEDS: Benztropine Mesylate 0.5 MG TABLET 1 MG PO ×2 (08:49→20:36)
[2020-08-18] MEDS: OLANZapine ODT 10 MG TAB.RAPDIS TRANSLINGU (08:49)
[2020-08-18] MEDS: HaloperidoL 5 MG TABLET PO ×3 (08:50→20:36)
--- NOTE | 2020-08-18 09:26 | P.PNPSI_ITS ---
Subjective Subjective Date of Service: 08/18/20 Reason For Visit: psychosis Subjective Notes: Dougherty Warning and Legal Status (s. 7) Interim History: Marlon was calmer and more able to engage in a conversation. He continues to assert that there is nothing wrong with him and that he should be DC. However, he was able to accept an explanation as to the process of sanna atment and the signs that would indicate improvement. Medication Compliance: Yes Side effects from medications: No Attending Groups: No Review of Systems Acute medical concerns: No Medical Review of Systems: unchanged Mental Status Exam Mental Status Exam Patient Appearance: Disheveled Patient Orientation: Person, Place, Time and Situation Level of Consciousness: Restless and Lethargic Patient Behavior: Guarded, Aggressive and Uncooperative Mood Description: Suspicious, Hostile and Anxious Patient Cognition Impaired: No Ability to Follow Directions: Good Speech Pattern: Slurred, Difficulty Finding Words and Poor Articulation Memory Description: Intact (not formally tested) Hallucinations: None (denied) Delusions: Being Controlled, Paranoid Ideation, Grandiose and Present Thought Process: Illogical and Rumination Thought Content: positive for Thought Blocking, positive for Disorganized, negative for Suicidal Ideation and negative for Homicidal Ideation Depressive Symptoms: Unhappiness and Increased Fatigue Abnormal Motor Activity Signs and Symptoms: Aggression and Agitation Diagnostics Vital Signs (24Hr): Vital Signs - 24 hr 08/17/20 15:35 08/18/20 07:05 Temperature 97.3 F 97.2 F Pulse Rate 90 77 Respiratory Rate 20 Blood Pressure 118/70 127/59 L Body Mass Index 32.1 Labs Results: 08/03/20 18:18 08/03/20 18:18 Labs: Laboratory Results - last 48 hr 08/16/20 08:40 Valproic Acid 53.3 Imaging Radiology Impressions: ITS Impressions Head CT 08/03/20 21:21 IMPRESSION: No acute intracranial pathology. Medications Medications Current Medications Generic Name Dose Route Start Last Admin Trade Name Freq PRN Reason Stop Dose Admin Acetaminophen 650 mg 08/04/20 18:27 Acetaminophen 325 Mg Tablet PO Q6H PRN Headache/Pain Mild Scale (1-3) Al Hydroxide/Mg Hydroxide 30 ml 08/04/20 18:27 Magnesium Hydrox/Alum Hydrox 30 Ml Oral.Susp PO Q6H PRN Heartburn/Nausea Benztropine Mesylate 1 mg 08/13/20 15:51 08/15/20 15:44 Benztropine Mesylate 1 Mg Tablet PO 1 mg RQ4H PRN Administration Extrapyramidal Effects Benztropine Mesylate 1 mg 08/13/20 21:00 08/18/20 08:49 Benztropine Mesylate 0.5 Mg Tablet PO 1 mg BID LU Administration Divalproex Sodium 500 mg 08/13/20 21:00 08/18/20 08:49 Divalproex Sodium 500 Mg Tablet.Dr PO 500 mg BID LU Administration Haloperidol 5 mg 08/13/20 15:51 08/15/20 15:44 Haloperidol 5 Mg Tablet PO 5 mg RQ4H PRN Administration Agitation Haloperidol 5 mg 08/15/20 15:00 08/18/20 08:50 Haloperidol 5 Mg Tablet PO 5 mg TID LU Administration Hydroxyzine HCl 25 mg 08/04/20 18:27 08/11/20 23:57 Hydroxyzine Hcl 25 Mg Tablet PO 25 mg BEDTIME PRN Administration Anxiety Lorazepam 2 mg 08/15/20 10:35 08/18/20 08:49 Lorazepam 1 Mg Tablet PO 2 mg RQ4H PRN Administration Agitation Magnesium Hydroxide 30 ml 08/04/20 18:27 Milk Of Magnesia 30 Ml Oral.Susp PO DAILY PRN Constipation Olanzapine 5 mg 08/04/20 18:27 08/14/20 13:26 Olanzapine 5 Mg Tablet PO 5 mg RQ4H PRN Administration anxiety/restlessness Olanzapine 20 mg 08/10/20 21:00 08/17/20 21:32 Olanzapine Odt 10 Mg Tab.Rapdis TRANSLINGU 20 mg BEDTIME LU Administration Olanzapine 10 mg 08/12/20 09:00 08/18/20 08:49 Olanzapine Odt 10 Mg Tab.Rapdis TRANSLINGU 10 mg DAILY LU Administration Trazodone HCl 50 mg 08/04/20 18:27 08/17/20 00:56 Trazodone Hcl 50 Mg Tablet PO 50 mg BEDTIME PRN Administration Insomnia Allergies Allergies Allergy/AdvReac Type Severity Reaction Status Date / Time No Known Allergies Allergy Verified 08/03/20 18:02 Assessment & Plan Assessment & Plan (1) Bipolar 1 disorder, depressed, severe: Status: Acute Code(s): F31.4 - Bipolar disorder, current episode depressed, severe, without psychotic features Greater than 50% of the session was spent on counseling and/or coordination of care Patient educated on: diagnosis, medication risk/benefits and substance abuse Informed Consent: does not understand Reason for contiued inpatient stay Substantial Risk for: harm to others and rapid decompensation
[2020-08-18 18:47] VITALS: BP 137/94; PULSE 85; TEMP 36.5
[2020-08-18] MEDS: OLANZapine ODT 10 MG TAB.RAPDIS 20 MG TRANSLINGU (20:36)
[2020-08-19 07:00] VITALS: BMI 27.0
[2020-08-19] MEDS: HaloperidoL 5 MG TABLET PO ×3 (08:36→20:21)
[2020-08-19] MEDS: OLANZapine ODT 10 MG TAB.RAPDIS TRANSLINGU (08:36)
[2020-08-19] MEDS: LORazepam 1 MG TABLET 2 MG PO (08:36)
[2020-08-19] MEDS: Divalproex Sodium 500 MG TABLET.DR PO ×2 (08:36→20:20)
[2020-08-19] MEDS: Benztropine Mesylate 0.5 MG TABLET 1 MG PO ×2 (08:36→20:21)
[2020-08-19 09:09] VITALS: BP 122/51; PULSE 77; TEMP 36.5
[2020-08-19] MEDS: OLANZapine 5 MG TABLET PO (10:11)
--- NOTE | 2020-08-19 14:05 | HO.PSYCHPN ---
Subjective Subjective Date of Service: 08/19/20 Reason For Visit: psychosis Subjective Notes: Dougherty Warning and Legal Status (s7) Interim History: Marlon was calmer and more engaged. He is more able to engage in planning and he is in good behavioral control. We agreed to change to 5ULB. He states that he feels that the medication has helped but he is not able to spell out how. Medication Compliance: Yes Side effects from medications: No Attending Groups: No Review of Systems Acute medical concerns: No Medical Review of Systems: unchanged Mental Status Exam Mental Status Exam Patient Appearance: Well Grooomed Patient Orientation: Person, Place, Time and Situation Level of Consciousness: Awake Patient Behavior: Guarded Mood Description: Suspicious and Anxious Affect Description: Calm Patient Cognition Impaired: No Ability to Follow Directions: Good Speech Pattern: Clear Memory Description: Intact Hallucinations: None (denied) Delusions: Being Controlled, Paranoid Ideation and Present Thought Process: Illogical and Rumination Thought Content: positive for Preoccupation, positive for Thought Blocking, negative for Suicidal Ideation and negative for Homicidal Ideation Depressive Symptoms: Unhappiness and Increased Fatigue Abnormal Motor Activity Signs and Symptoms: Aggression and Agitation Diagnostics Vital Signs (24Hr): Vital Signs - 24 hr 08/18/20 18:47 08/19/20 09:09 Temperature 97.7 F 97.7 F Pulse Rate 85 77 Blood Pressure 137/94 H 122/51 L Body Mass Index 27.0 Labs Results: 08/03/20 18:18 08/03/20 18:18 Imaging Radiology Impressions: ITS Impressions Head CT 08/03/20 21:21 IMPRESSION: No acute intracranial pathology. Medications Medications Current Medications Generic Name Dose Route Start Last Admin Trade Name Frankq PRN Reason Stop Dose Admin Acetaminophen 650 mg 08/04/20 18:27 Acetaminophen 325 Mg Tablet PO Q6H PRN Headache/Pain Mild Scale (1-3) Al Hydroxide/Mg Hydroxide 30 ml 08/04/20 18:27 Magnesium Hydrox/Alum Hydrox 30 Ml Oral.Susp PO Q6H PRN Heartburn/Nausea Benztropine Mesylate 1 mg 08/13/20 15:51 08/15/20 15:44 Benztropine Mesylate 1 Mg Tablet PO 1 mg RQ4H PRN Administration Extrapyramidal Effects Benztropine Mesylate 1 mg 08/13/20 21:00 08/19/20 08:36 Benztropine Mesylate 0.5 Mg Tablet PO 1 mg BID LU Administration Divalproex Sodium 500 mg 08/13/20 21:00 08/19/20 08:36 Divalproex Sodium 500 Mg Tablet.Dr PO 500 mg BID LU Administration Haloperidol 5 mg 08/13/20 15:51 08/15/20 15:44 Haloperidol 5 Mg Tablet PO 5 mg RQ4H PRN Administration Agitation Haloperidol 5 mg 08/15/20 15:00 08/19/20 08:36 Haloperidol 5 Mg Tablet PO 5 mg TID LU Administration Hydroxyzine HCl 25 mg 08/04/20 18:27 08/11/20 23:57 Hydroxyzine Hcl 25 Mg Tablet PO 25 mg BEDTIME PRN Administration Anxiety Lorazepam 1 mg 08/19/20 14:04 Lorazepam 1 Mg Tablet PO RQ4H PRN Agitation Magnesium Hydroxide 30 ml 08/04/20 18:27 Milk Of Magnesia 30 Ml Oral.Susp PO DAILY PRN Constipation Olanzapine 5 mg 08/04/20 18:27 08/19/20 10:11 Olanzapine 5 Mg Tablet PO 5 mg RQ4H PRN Administration anxiety/restlessness Olanzapine 20 mg 08/10/20 21:00 08/18/20 20:36 Olanzapine Odt 10 Mg Tab.Rapdis TRANSLINGU 20 mg BEDTIME LU Administration Olanzapine 10 mg 08/12/20 09:00 08/19/20 08:36 Olanzapine Odt 10 Mg Tab.Rapdis TRANSLINGU 10 mg DAILY LU Administration Trazodone HCl 50 mg 08/04/20 18:27 08/17/20 00:56 Trazodone Hcl 50 Mg Tablet PO 50 mg BEDTIME PRN Administration Insomnia Allergies Allergies Allergy/AdvReac Type Severity Reaction Status Date / Time No Known Allergies Allergy Verified 08/03/20 18:02 Assessment & Plan Assessment & Plan (1) Bipolar 1 disorder, depressed, severe: Status: Acute Code(s): F31.4 - Bipolar disorder, current episode depressed, severe, without psychotic features Assessment and Plan: Making some improvement CT current plan Check VPA level Greater than 50% of the session was spent on counseling and/or coordination of care Patient educated on: diagnosis and medication risk/benefits Informed Consent: does not understand Reason for contiued inpatient stay Substantial Risk for: inability to function and rapid decompensation
[2020-08-19 19:05] VITALS: BP 126/70; PULSE 113; TEMP 37.1
[2020-08-19] MEDS: OLANZapine ODT 10 MG TAB.RAPDIS 20 MG TRANSLINGU (20:21)
[2020-08-19] MEDS: hydrOXYzine HCL 25 MG TABLET PO (20:58)
[2020-08-20] MEDS: traZODone HCL 50 MG TABLET PO (00:36)
[2020-08-20] MEDS: LORazepam 1 MG TABLET PO ×2 (00:36→11:06)
[2020-08-20] MEDS: Benztropine Mesylate 0.5 MG TABLET 1 MG PO ×2 (08:40→20:31)
[2020-08-20] MEDS: Divalproex Sodium 500 MG TABLET.DR PO ×2 (08:41→20:31)
[2020-08-20] MEDS: HaloperidoL 5 MG TABLET PO ×3 (08:41→20:31)
[2020-08-20] MEDS: OLANZapine ODT 10 MG TAB.RAPDIS TRANSLINGU (08:41)
[2020-08-20 10:00] VITALS: BP 133/78; PULSE 102; TEMP 36.4
--- NOTE | 2020-08-20 19:43 | HO.PSYCHPN ---
Subjective Subjective Date of Service: 08/20/20 Reason For Visit: psychosis Subjective Notes: [place] Warning and Legal Status (s7) Interim History: Marlon was somewhat more engaged, and able to reflect on the fact that he does feel his medication has helped him think more clearly. Although he still wants to leave, he is less urgent about it. He has been in behavioral control. Medication Compliance: Yes Side effects from medications: No Attending Groups: No Review of Systems Acute medical concerns: No Medical Review of Systems: unchanged Mental Status Exam Mental Status Exam Patient Appearance: Well Grooomed Patient Orientation: Person, Place, Time and Situation Level of Consciousness: Awake Patient Behavior: Guarded Mood Description: Suspicious and Anxious Affect Description: Calm Patient Cognition Impaired: No Ability to Follow Directions: Good Speech Pattern: Clear Memory Description: Intact Hallucinations: None (denied) Delusions: Being Controlled, Paranoid Ideation and Present Thought Process: Illogical and Rumination Thought Content: positive for Preoccupation, positive for Thought Blocking, negative for Suicidal Ideation and negative for Homicidal Ideation Depressive Symptoms: Unhappiness and Increased Fatigue Abnormal Motor Activity Signs and Symptoms: Aggression and Agitation Diagnostics Vital Signs (24Hr): Vital Signs - 24 hr 08/20/20 10:00 Temperature 97.5 F Pulse Rate 102 H Blood Pressure 133/78 Body Mass Index 27.0 Labs Results: 08/03/20 18:18 08/03/20 18:18 Imaging Radiology Impressions: ITS Impressions Head CT 08/03/20 21:21 IMPRESSION: No acute intracranial pathology. Medications Medications Current Medications Generic Name Dose Route Start Last Admin Trade Name Freq PRN Reason Stop Dose Admin Acetaminophen 650 mg 08/04/20 18:27 Acetaminophen 325 Mg Tablet PO Q6H PRN Headache/Pain Mild Scale (1-3) Al Hydroxide/Mg Hydroxide 30 ml 08/04/20 18:27 Magnesium Hydrox/Alum Hydrox 30 Ml Oral.Susp PO Q6H PRN Heartburn/Nausea Benztropine Mesylate 1 mg 08/13/20 15:51 08/15/20 15:44 Benztropine Mesylate 1 Mg Tablet PO 1 mg RQ4H PRN Administration Extrapyramidal Effects Benztropine Mesylate 1 mg 08/13/20 21:00 08/20/20 08:40 Benztropine Mesylate 0.5 Mg Tablet PO 1 mg BID LU Administration Divalproex Sodium 500 mg 08/13/20 21:00 08/20/20 08:41 Divalproex Sodium 500 Mg Tablet.Dr PO 500 mg BID LU Administration Haloperidol 5 mg 08/13/20 15:51 08/15/20 15:44 Haloperidol 5 Mg Tablet PO 5 mg RQ4H PRN Administration Agitation Haloperidol 5 mg 08/15/20 15:00 08/20/20 15:44 Haloperidol 5 Mg Tablet PO 5 mg TID LU Administration Hydroxyzine HCl 25 mg 08/04/20 18:27 08/19/20 20:58 Hydroxyzine Hcl 25 Mg Tablet PO 25 mg BEDTIME PRN Administration Anxiety Lorazepam 1 mg 08/19/20 14:04 08/20/20 11:06 Lorazepam 1 Mg Tablet PO 1 mg RQ4H PRN Administration Agitation Magnesium Hydroxide 30 ml 08/04/20 18:27 Milk Of Magnesia 30 Ml Oral.Susp PO DAILY PRN Constipation Olanzapine 5 mg 08/04/20 18:27 08/19/20 10:11 Olanzapine 5 Mg Tablet PO 5 mg RQ4H PRN Administration anxiety/restlessness Olanzapine 20 mg 08/10/20 21:00 08/19/20 20:21 Olanzapine Odt 10 Mg Tab.Rapdis TRANSLINGU 20 mg BEDTIME LU Administration Olanzapine 10 mg 08/12/20 09:00 08/20/20 08:41 Olanzapine Odt 10 Mg Tab.Rapdis TRANSLINGU 10 mg DAILY LU Administration Trazodone HCl 50 mg 08/04/20 18:27 08/20/20 00:36 Trazodone Hcl 50 Mg Tablet PO 50 mg BEDTIME PRN Administration Insomnia Allergies Allergies Allergy/AdvReac Type Severity Reaction Status Date / Time No Known Allergies Allergy Verified 08/03/20 18:02 Assessment & Plan Assessment & Plan (1) Bipolar 1 disorder, depressed, severe: Status: Acute Code(s): F31.4 - Bipolar disorder, current episode depressed, severe, without psychotic features Assessment and Plan: CT current treatment plan Greater than 50% of the session was spent on counseling and/or coordination of care Patient educated on: diagnosis and medication risk/benefits Informed Consent: does not understand Reason for contiued inpatient stay Substantial Risk for: inability to function and rapid decompensation
[2020-08-20 20:17] LABS: Valproate 35.2 mcg/mL (50.0-100.0)
[2020-08-20] MEDS: OLANZapine ODT 10 MG TAB.RAPDIS 20 MG TRANSLINGU (20:31)
[2020-08-21] MEDS: Magnesium Hydrox/Alum Hydrox 30 ML ORAL.SUSP PO (03:53)
[2020-08-21 05:55] VITALS: BP 133/77; PULSE 74; RESP 18; TEMP 36.3; O2SAT 97
--- NOTE | 2020-08-21 07:29 | HO.PSYCHPN ---
Subjective Subjective Date of Service: 08/21/20 Reason For Visit: psychosis Interim History: More logical and engaged. c/o dry mouth. Educated re meds. He insists he needs to be discharged. He has been in behavioral control. Is aware of court hearing Review of Systems Review of Systems Constitutional : No Fever, No Chills ENT/Mouth : No Ear Pain, No Nasal Congestion, No sore throat Eyes: No Eye Pain, No Swelling, No Redness Cardiovascular : No Chest Pain, No SOB Respiratory : No Cough, No Sputum, No Dyspnea Gastrointestinal : No Nausea, No Vomiting, No Diarrhea, No Hematochezia, No Melena Genitourinary : No Dysuria, No Urinary Frequency, No Hematuria Musculoskeletal : No Myalgias Skin : No Skin Lesions, No rash Neuro : No Weakness, No Numbness, No Paresthesias, No Dizziness, No Headache Psych : positive Anxiety, positive Depression, positive SI, no HI Heme/Lymph: No Lymphadenopathy Endocrine : No Polyuria, No Polydipsia All other systems reviewed and are negative Mental Status Exam Mental Status Exam Narrative: walking down roman, sleepy, went into bed- and fell asleep Patient Appearance: Well Grooomed Patient Orientation: Person, Place, Time and Situation Level of Consciousness: Awake Patient Behavior: Guarded Mood Description: Suspicious and Anxious Affect Description: Calm Patient Cognition Impaired: No Ability to Follow Directions: Good Speech Pattern: Clear Memory Description: Intact Diagnostics Vital Signs (24Hr): Vital Signs - 24 hr 08/20/20 10:00 08/21/20 05:55 Temperature 97.5 F 97.4 F Pulse Rate 102 H 74 Respiratory Rate 18 Blood Pressure 133/78 133/77 Pulse Oximetry 97 Body Mass Index 27.0 Labs Results: 08/03/20 18:18 08/03/20 18:18 Labs: Laboratory Results - last 48 hr 08/20/20 19:12 Valproic Acid 35.2 L Imaging Radiology Impressions: ITS Impressions Head CT 08/03/20 21:21 IMPRESSION: No acute intracranial pathology. Medications Medications Current Medications Generic Name Dose Route Start Last Admin Trade Name Freq PRN Reason Stop Dose Admin Acetaminophen 650 mg 08/04/20 18:27 Acetaminophen 325 Mg Tablet PO Q6H PRN Headache/Pain Mild Scale (1-3) Al Hydroxide/Mg Hydroxide 30 ml 08/04/20 18:27 08/21/20 03:53 Magnesium Hydrox/Alum Hydrox 30 Ml Oral.Susp PO 30 ml Q6H PRN Administration Heartburn/Nausea Benztropine Mesylate 1 mg 08/13/20 15:51 08/15/20 15:44 Benztropine Mesylate 1 Mg Tablet PO 1 mg RQ4H PRN Administration Extrapyramidal Effects Benztropine Mesylate 1 mg 08/13/20 21:00 08/20/20 20:31 Benztropine Mesylate 0.5 Mg Tablet PO 1 mg BID LU Administration Divalproex Sodium 500 mg 08/13/20 21:00 08/20/20 20:31 Divalproex Sodium 500 Mg Tablet.Dr PO 500 mg BID LU Administration Haloperidol 5 mg 08/13/20 15:51 08/15/20 15:44 Haloperidol 5 Mg Tablet PO 5 mg RQ4H PRN Administration Agitation Haloperidol 5 mg 08/15/20 15:00 08/20/20 20:31 Haloperidol 5 Mg Tablet PO 5 mg TID LU Administration Hydroxyzine HCl 25 mg 08/04/20 18:27 08/19/20 20:58 Hydroxyzine Hcl 25 Mg Tablet PO 25 mg BEDTIME PRN Administration Anxiety Lorazepam 1 mg 08/19/20 14:04 08/20/20 11:06 Lorazepam 1 Mg Tablet PO 1 mg RQ4H PRN Administration Agitation Magnesium Hydroxide 30 ml 08/04/20 18:27 Milk Of Magnesia 30 Ml Oral.Susp PO DAILY PRN Constipation Olanzapine 5 mg 08/04/20 18:27 08/19/20 10:11 Olanzapine 5 Mg Tablet PO 5 mg RQ4H PRN Administration anxiety/restlessness Olanzapine 20 mg 08/10/20 21:00 08/20/20 20:31 Olanzapine Odt 10 Mg Tab.Rapdis TRANSLINGU 20 mg BEDTIME LU Administration Olanzapine 10 mg 08/12/20 09:00 08/20/20 08:41 Olanzapine Odt 10 Mg Tab.Rapdis TRANSLINGU 10 mg DAILY LU Administration Trazodone HCl 50 mg 08/04/20 18:27 08/20/20 00:36 Trazodone Hcl 50 Mg Tablet PO 50 mg BEDTIME PRN Administration Insomnia Allergies Allergies Allergy/AdvReac Type Severity Reaction Status Date / Time No Known Allergies Allergy Verified 08/03/20 18:02 Assessment & Plan Assessment & Plan (1) Bipolar 1 disorder, depressed, severe: Status: Acute Code(s): F31.4 - Bipolar disorder, current episode depressed, severe, without psychotic features Assessment and Plan: CT current treatment plan. Court hearing next week Greater than 50% of the session was spent on counseling and/or coordination of care
[2020-08-21] MEDS: OLANZapine ODT 10 MG TAB.RAPDIS TRANSLINGU (08:08)
[2020-08-21] MEDS: Benztropine Mesylate 0.5 MG TABLET 1 MG PO ×2 (08:08→21:01)
[2020-08-21] MEDS: Divalproex Sodium 500 MG TABLET.DR PO ×2 (08:08→21:02)
[2020-08-21] MEDS: HaloperidoL 5 MG TABLET PO ×3 (08:08→21:02)
[2020-08-21] MEDS: Nicotine Polacrilex 2 MG GUM BUCCAL (14:30)
[2020-08-21 17:40] VITALS: BP 122/84; PULSE 100; TEMP 36.4
[2020-08-21] MEDS: OLANZapine ODT 10 MG TAB.RAPDIS 20 MG TRANSLINGU (21:01)
[2020-08-22 06:35] VITALS: BP 123/80; PULSE 82; RESP 16; TEMP 36.2; O2SAT 99
[2020-08-22] MEDS: Benztropine Mesylate 0.5 MG TABLET 1 MG PO ×2 (08:50→20:20)
[2020-08-22] MEDS: OLANZapine ODT 10 MG TAB.RAPDIS TRANSLINGU (08:50)
[2020-08-22] MEDS: HaloperidoL 5 MG TABLET PO ×3 (08:50→20:20)
[2020-08-22] MEDS: Divalproex Sodium 500 MG TABLET.DR PO ×2 (08:50→20:20)
--- NOTE | 2020-08-22 09:02 | HO.PSYCHPN ---
Subjective Subjective Date of Service: 08/22/20 Reason For Visit: psychosis Interim History: More logical and engaged. c/o dry mouth. Educated re meds. He insists he needs to be discharged. He has been in behavioral control. Is aware of court hearing Review of Systems Review of Systems Constitutional : No Fever, No Chills ENT/Mouth : No Ear Pain, No Nasal Congestion, No sore throat Eyes: No Eye Pain, No Swelling, No Redness Cardiovascular : No Chest Pain, No SOB Respiratory : No Cough, No Sputum, No Dyspnea Gastrointestinal : No Nausea, No Vomiting, No Diarrhea, No Hematochezia, No Melena Genitourinary : No Dysuria, No Urinary Frequency, No Hematuria Musculoskeletal : No Myalgias Skin : No Skin Lesions, No rash Neuro : No Weakness, No Numbness, No Paresthesias, No Dizziness, No Headache Psych : positive Anxiety, positive Depression, positive SI, no HI Heme/Lymph: No Lymphadenopathy Endocrine : No Polyuria, No Polydipsia All other systems reviewed and are negative Mental Status Exam Mental Status Exam Narrative: walking down roman, sleepy, went into bed- and fell asleep Patient Appearance: Well Grooomed Patient Orientation: Person, Place, Time and Situation Level of Consciousness: Awake Patient Behavior: Guarded Mood Description: Suspicious and Anxious Affect Description: Calm Patient Cognition Impaired: No Ability to Follow Directions: Good Speech Pattern: Clear Memory Description: Intact Diagnostics Vital Signs (24Hr): Vital Signs - 24 hr 08/21/20 17:40 08/22/20 06:35 Temperature 97.6 F 97.1 F Pulse Rate 100 82 Respiratory Rate 16 Blood Pressure 122/84 123/80 Pulse Oximetry 99 Body Mass Index 27.0 Labs Results: 08/03/20 18:18 08/03/20 18:18 Labs: Laboratory Results - last 48 hr 08/20/20 19:12 Valproic Acid 35.2 L Imaging Radiology Impressions: ITS Impressions Head CT 08/03/20 21:21 IMPRESSION: No acute intracranial pathology. Medications Medications Current Medications Generic Name Dose Route Start Last Admin Trade Name Freq PRN Reason Stop Dose Admin Acetaminophen 650 mg 08/04/20 18:27 Acetaminophen 325 Mg Tablet PO Q6H PRN Headache/Pain Mild Scale (1-3) Al Hydroxide/Mg Hydroxide 30 ml 08/04/20 18:27 08/21/20 03:53 Magnesium Hydrox/Alum Hydrox 30 Ml Oral.Susp PO 30 ml Q6H PRN Administration Heartburn/Nausea Benztropine Mesylate 1 mg 08/13/20 15:51 08/15/20 15:44 Benztropine Mesylate 1 Mg Tablet PO 1 mg RQ4H PRN Administration Extrapyramidal Effects Benztropine Mesylate 1 mg 08/13/20 21:00 08/22/20 08:50 Benztropine Mesylate 0.5 Mg Tablet PO 1 mg BID LU Administration Divalproex Sodium 500 mg 08/13/20 21:00 08/22/20 08:50 Divalproex Sodium 500 Mg Tablet.Dr PO 500 mg BID LU Administration Haloperidol 5 mg 08/13/20 15:51 08/15/20 15:44 Haloperidol 5 Mg Tablet PO 5 mg RQ4H PRN Administration Agitation Haloperidol 5 mg 08/15/20 15:00 08/22/20 08:50 Haloperidol 5 Mg Tablet PO 5 mg TID LU Administration Hydroxyzine HCl 25 mg 08/04/20 18:27 08/19/20 20:58 Hydroxyzine Hcl 25 Mg Tablet PO 25 mg BEDTIME PRN Administration Anxiety Lorazepam 1 mg 08/19/20 14:04 08/20/20 11:06 Lorazepam 1 Mg Tablet PO 1 mg RQ4H PRN Administration Agitation Magnesium Hydroxide 30 ml 08/04/20 18:27 Milk Of Magnesia 30 Ml Oral.Susp PO DAILY PRN Constipation Nicotine Polacrilex 2 mg 08/21/20 13:51 08/21/20 14:30 Nicotine Polacrilex 2 Mg Gum BUCCAL 2 mg Q2H PRN Administration Nicotine Cravings Olanzapine 5 mg 08/04/20 18:27 08/19/20 10:11 Olanzapine 5 Mg Tablet PO 5 mg RQ4H PRN Administration anxiety/restlessness Olanzapine 20 mg 08/10/20 21:00 08/21/20 21:01 Olanzapine Odt 10 Mg Tab.Rapdis TRANSLINGU 20 mg BEDTIME LU Administration Olanzapine 10 mg 08/12/20 09:00 08/22/20 08:50 Olanzapine Odt 10 Mg Tab.Rapdis TRANSLINGU 10 mg DAILY LU Administration Trazodone HCl 50 mg 08/04/20 18:27 08/20/20 00:36 Trazodone Hcl 50 Mg Tablet PO 50 mg BEDTIME PRN Administration Insomnia Allergies Allergies Allergy/AdvReac Type Severity Reaction Status Date / Time No Known Allergies Allergy Verified 08/03/20 18:02 Assessment & Plan Assessment & Plan (1) Bipolar 1 disorder, depressed, severe: Status: Acute Code(s): F31.4 - Bipolar disorder, current episode depressed, severe, without psychotic features Assessment and Plan: CT current treatment plan. Court hearing next week Greater than 50% of the session was spent on counseling and/or coordination of care
[2020-08-22] MEDS: Nicotine Polacrilex 2 MG GUM BUCCAL (14:16)
[2020-08-22] MEDS: LORazepam 1 MG TABLET PO (19:08)
[2020-08-22] MEDS: OLANZapine ODT 10 MG TAB.RAPDIS 20 MG TRANSLINGU (20:19)
[2020-08-22 22:00] VITALS: BP 109/55; PULSE 68; TEMP 36.8
[2020-08-23 06:20] VITALS: BP 117/61; PULSE 90; RESP 18; TEMP 36.1; O2SAT 95
[2020-08-23] MEDS: HaloperidoL 5 MG TABLET PO ×3 (08:42→20:13)
[2020-08-23] MEDS: OLANZapine ODT 10 MG TAB.RAPDIS TRANSLINGU (08:42)
[2020-08-23] MEDS: Benztropine Mesylate 0.5 MG TABLET 1 MG PO ×2 (08:43→20:13)
[2020-08-23] MEDS: Divalproex Sodium 500 MG TABLET.DR PO (08:43)
[2020-08-23] MEDS: LORazepam 1 MG TABLET PO (11:05)
--- NOTE | 2020-08-23 15:42 | HO.PSYCHPN ---
Subjective Subjective Date of Service: 08/23/20 Reason For Visit: psychosis Subjective Notes: Conditional Voluntary Interim History: Marlon has been calmer and more focused. He is more able to see the improvement he has made on his medication and to accept that he needs to be in the hospital for a little longer. He agreed to retract his 3 day notice. Medication Compliance: Yes Side effects from medications: No Attending Groups: Intermittent Review of Systems Acute medical concerns: No Medical Review of Systems: unchanged Mental Status Exam Mental Status Exam Narrative: walking down roman, sleepy, went into bed- and fell asleep Patient Appearance: Well Grooomed Patient Orientation: Person, Place, Time and Situation Level of Consciousness: Awake Patient Behavior: Appropriate Mood Description: Anxious Affect Description: Calm Patient Cognition Impaired: No Ability to Follow Directions: Good Speech Pattern: Clear Memory Description: Intact Hallucinations: None Delusions: Paranoid Ideation Thought Process: Intact Thought Content: positive for [place], positive for Circumstantial, negative for Suicidal Ideation and negative for Homicidal Ideation Depressive Symptoms: Increased Anxiety and Increased Irritability Diagnostics Vital Signs (24Hr): Vital Signs - 24 hr 08/22/20 22:00 08/23/20 06:20 Temperature 98.2 F 96.9 F Pulse Rate 68 90 Respiratory Rate 18 Blood Pressure 109/55 L 117/61 Pulse Oximetry 95 Body Mass Index 27.0 Labs Results: 08/03/20 18:18 08/03/20 18:18 Imaging Radiology Impressions: ITS Impressions Head CT 08/03/20 21:21 IMPRESSION: No acute intracranial pathology. Medications Medications Current Medications Generic Name Dose Route Start Last Admin Trade Name Freq PRN Reason Stop Dose Admin Acetaminophen 650 mg 08/04/20 18:27 Acetaminophen 325 Mg Tablet PO Q6H PRN Headache/Pain Mild Scale (1-3) Al Hydroxide/Mg Hydroxide 30 ml 08/04/20 18:27 08/21/20 03:53 Magnesium Hydrox/Alum Hydrox 30 Ml Oral.Susp PO 30 ml Q6H PRN Administration Heartburn/Nausea Benztropine Mesylate 1 mg 08/13/20 15:51 08/15/20 15:44 Benztropine Mesylate 1 Mg Tablet PO 1 mg RQ4H PRN Administration Extrapyramidal Effects Benztropine Mesylate 1 mg 08/13/20 21:00 08/23/20 08:43 Benztropine Mesylate 0.5 Mg Tablet PO 1 mg BID LU Administration Divalproex Sodium 1,000 mg 08/23/20 21:00 Divalproex Sodium 500 Mg Tablet.Dr PO BID LU Haloperidol 5 mg 08/13/20 15:51 08/15/20 15:44 Haloperidol 5 Mg Tablet PO 5 mg RQ4H PRN Administration Agitation Haloperidol 5 mg 08/15/20 15:00 08/23/20 15:12 Haloperidol 5 Mg Tablet PO 5 mg TID LU Administration Hydroxyzine HCl 25 mg 08/04/20 18:27 08/19/20 20:58 Hydroxyzine Hcl 25 Mg Tablet PO 25 mg BEDTIME PRN Administration Anxiety Lorazepam 1 mg 08/19/20 14:04 08/23/20 11:05 Lorazepam 1 Mg Tablet PO 1 mg RQ4H PRN Administration Agitation Magnesium Hydroxide 30 ml 08/04/20 18:27 Milk Of Magnesia 30 Ml Oral.Susp PO DAILY PRN Constipation Nicotine Polacrilex 2 mg 08/21/20 13:51 08/22/20 14:16 Nicotine Polacrilex 2 Mg Gum BUCCAL 2 mg Q2H PRN Administration Nicotine Cravings Olanzapine 5 mg 08/04/20 18:27 08/19/20 10:11 Olanzapine 5 Mg Tablet PO 5 mg RQ4H PRN Administration anxiety/restlessness Olanzapine 20 mg 08/10/20 21:00 08/22/20 20:19 Olanzapine Odt 10 Mg Tab.Rapdis TRANSLINGU 20 mg BEDTIME LU Administration Olanzapine 10 mg 08/12/20 09:00 08/23/20 08:42 Olanzapine Odt 10 Mg Tab.Rapdis TRANSLINGU 10 mg DAILY LU Administration Trazodone HCl 50 mg 08/04/20 18:27 08/20/20 00:36 Trazodone Hcl 50 Mg Tablet PO 50 mg BEDTIME PRN Administration Insomnia Allergies Allergies Allergy/AdvReac Type Severity Reaction Status Date / Time No Known Allergies Allergy Verified 08/03/20 18:02 Assessment & Plan Assessment & Plan (1) Bipolar 1 disorder, depressed, severe: Status: Acute Code(s): F31.4 - Bipolar disorder, current episode depressed, severe, without psychotic features Assessment and Plan: Accept retraction of [address] CT treatment plan Greater than 50% of the session was spent on counseling and/or coordination of care Patient educated on: diagnosis and medication risk/benefits Informed Consent: further education needed Reason for contiued inpatient stay Substantial Risk for: rapid decompensation
[2020-08-23] MEDS: Divalproex Sodium 500 MG TABLET.DR 1000 MG PO (20:12)
[2020-08-23] MEDS: OLANZapine ODT 10 MG TAB.RAPDIS 20 MG TRANSLINGU (20:13)
[2020-08-23 22:00] VITALS: RESP 16
[2020-08-23] MEDS: Magnesium Hydrox/Alum Hydrox 30 ML ORAL.SUSP PO (22:27)
[2020-08-24 06:05] VITALS: BP 114/63; PULSE 86; RESP 20; TEMP 36.3; O2SAT 96
[2020-08-24] MEDS: Benztropine Mesylate 0.5 MG TABLET 1 MG PO ×2 (08:32→20:23)
[2020-08-24] MEDS: OLANZapine ODT 10 MG TAB.RAPDIS TRANSLINGU (08:32)
[2020-08-24] MEDS: Divalproex Sodium 500 MG TABLET.DR 1000 MG PO ×2 (08:32→20:22)
[2020-08-24] MEDS: HaloperidoL 5 MG TABLET PO ×3 (08:32→20:23)
[2020-08-24] MEDS: LORazepam 1 MG TABLET PO (09:33)
--- NOTE | 2020-08-24 10:19 | P.PNPSI_ITS ---
Subjective Subjective Date of Service: 08/24/20 Reason For Visit: psychosis Subjective Notes: Conditional Voluntary Interim History: Marlon has been much calmer and more organized. He understands how ill he was when he came in and he agrees that the medications have been helpful to him. He is anxious to go home and asserts that he will take his medication when he goes home. BHAVIN has reached out to his aunt regarding discharge. Medication Compliance: Yes Side effects from medications: No Attending Groups: Yes Review of Systems Acute medical concerns: No Medical Review of Systems: unchanged Mental Status Exam Mental Status Exam Patient Appearance: Well Grooomed Patient Orientation: Person, Place, Time and Situation Level of Consciousness: Awake Patient Behavior: Appropriate Mood Description: Calm and Anxious Affect Description: Calm Patient Cognition Impaired: No Ability to Follow Directions: Good Speech Pattern: Clear Memory Description: Intact Hallucinations: None Delusions: Paranoid Ideation Thought Process: Intact Thought Content: positive for [place], positive for Circumstantial, negative for Suicidal Ideation and negative for Homicidal Ideation Diagnostics Vital Signs (24Hr): Vital Signs - 24 hr 08/23/20 22:00 08/24/20 06:05 Temperature 97.3 F Pulse Rate 86 Respiratory Rate 16 20 Blood Pressure 114/63 Pulse Oximetry 96 Body Mass Index 27.0 Labs Results: 08/03/20 18:18 08/03/20 18:18 Imaging Radiology Impressions: ITS Impressions Head CT 08/03/20 21:21 IMPRESSION: No acute intracranial pathology. Medications Medications Current Medications Generic Name Dose Route Start Last Admin Trade Name Freq PRN Reason Stop Dose Admin Acetaminophen 650 mg 08/04/20 18:27 Acetaminophen 325 Mg Tablet PO Q6H PRN Headache/Pain Mild Scale (1-3) Al Hydroxide/Mg Hydroxide 30 ml 08/04/20 18:27 08/23/20 22:27 Magnesium Hydrox/Alum Hydrox 30 Ml Oral.Susp PO 30 ml Q6H PRN Administration Heartburn/Nausea Benztropine Mesylate 1 mg 08/13/20 15:51 08/15/20 15:44 Benztropine Mesylate 1 Mg Tablet PO 1 mg RQ4H PRN Administration Extrapyramidal Effects Benztropine Mesylate 1 mg 08/13/20 21:00 08/24/20 08:32 Benztropine Mesylate 0.5 Mg Tablet PO 1 mg BID LU Administration Divalproex Sodium 1,000 mg 08/23/20 21:00 08/24/20 08:32 Divalproex Sodium 500 Mg Tablet.Dr PO 1,000 mg BID LU Administration Haloperidol 5 mg 08/13/20 15:51 08/15/20 15:44 Haloperidol 5 Mg Tablet PO 5 mg RQ4H PRN Administration Agitation Haloperidol 5 mg 08/15/20 15:00 08/24/20 08:32 Haloperidol 5 Mg Tablet PO 5 mg TID LU Administration Hydroxyzine HCl 25 mg 08/04/20 18:27 08/19/20 20:58 Hydroxyzine Hcl 25 Mg Tablet PO 25 mg BEDTIME PRN Administration Anxiety Lorazepam 1 mg 08/19/20 14:04 08/24/20 09:33 Lorazepam 1 Mg Tablet PO 1 mg RQ4H PRN Administration Agitation Magnesium Hydroxide 30 ml 08/04/20 18:27 Milk Of Magnesia 30 Ml Oral.Susp PO DAILY PRN Constipation Nicotine Polacrilex 2 mg 08/21/20 13:51 08/22/20 14:16 Nicotine Polacrilex 2 Mg Gum BUCCAL 2 mg Q2H PRN Administration Nicotine Cravings Olanzapine 5 mg 08/04/20 18:27 08/19/20 10:11 Olanzapine 5 Mg Tablet PO 5 mg RQ4H PRN Administration anxiety/restlessness Olanzapine 20 mg 08/10/20 21:00 08/23/20 20:13 Olanzapine Odt 10 Mg Tab.Rapdis TRANSLINGU 20 mg BEDTIME LU Administration Olanzapine 10 mg 08/12/20 09:00 08/24/20 08:32 Olanzapine Odt 10 Mg Tab.Rapdis TRANSLINGU 10 mg DAILY LU Administration Trazodone HCl 50 mg 08/04/20 18:27 08/20/20 00:36 Trazodone Hcl 50 Mg Tablet PO 50 mg BEDTIME PRN Administration Insomnia Allergies Allergies Allergy/AdvReac Type Severity Reaction Status Date / Time No Known Allergies Allergy Verified 08/03/20 18:02 Assessment & Plan Assessment & Plan (1) Bipolar 1 disorder, depressed, severe: Status: Acute Code(s): F31.4 - Bipolar disorder, current episode depressed, severe, without psychotic features Assessment and Plan: CT current treatment plan Greater than 50% of the session was spent on counseling and/or coordination of care Patient educated on: diagnosis and medication risk/benefits Informed Consent: further education needed Reason for contiued inpatient stay Substantial Risk for: rapid decompensation
[2020-08-24] MEDS: Nicotine Polacrilex 2 MG GUM BUCCAL (14:37)
[2020-08-24] MEDS: OLANZapine ODT 10 MG TAB.RAPDIS 20 MG TRANSLINGU (20:23)
[2020-08-25 06:40] VITALS: BP 98/54; PULSE 74; RESP 18; TEMP 36.6; O2SAT 98
[2020-08-25] MEDS: Divalproex Sodium 500 MG TABLET.DR 1000 MG PO (08:40)
[2020-08-25] MEDS: HaloperidoL 5 MG TABLET PO ×2 (08:40→14:24)
[2020-08-25] MEDS: Benztropine Mesylate 0.5 MG TABLET 1 MG PO (08:40)
[2020-08-25] MEDS: OLANZapine ODT 10 MG TAB.RAPDIS TRANSLINGU (08:40)
--- NOTE | 2020-08-25 20:11 | PM.PSYDC ---
DS: Providers Provider Date of admission: 08/04/20 17:59 Date of discharge: 08/25/20 Primary care physician: Unknown Physician Attending physician on admission: Lyla Mtz Consults: 08/16/20 10:25 Consult to Physiatry Routine Consulting Provider: Vic Downs Reason for consultation: Second opnion regarding treatment and level of risk Has provider been notified: Yes Attending physician on discharge: Lyla Mtz DS: Diagnosis Discharge Diagnosis (1) Bipolar 1 disorder, depressed, severe: Status: Acute DS: Medications Discharge Medications Home Medications: Previous Rx's Medication Instructions Recorded benztropine 1 mg PO BID #60 tab 08/25/20 divalproex 1,000 mg PO BID #120 tab 08/25/20 haloperidol 5 mg PO TID #90 tab 08/25/20 lorazepam 1 mg PO RQ4H PRN #30 tab 08/25/20 olanzapine 10 mg PO DAILY #30 tab 08/25/20 olanzapine 20 mg PO BEDTIME #30 tab 08/25/20 Discharge Plan Discharge Patient Disposition: Home, Self-Care Referrals: Cate Mendiola, therapist [Other] - 08/27/20 9:00 am (Telehealth) Diane Hopper MD [Physician] - 09/08/20 10:30 am Horacio Gonzales APRN [Advanced Practice Nurse] - 09/23/20 11:00 am (Telehealth appointment Follow up scheduled 10/18 3:00pm) Discharge Medications: New benztropine 0.5 mg Tablet 1 mg PO BID Qty: 60 RF: 0 haloperidol 5 mg Tablet 5 mg PO TID Qty: 90 RF: 0 divalproex 500 mg Tablet,Delayed Release (Dr/Ec) 1,000 mg PO BID Qty: 120 RF: 0 lorazepam 1 mg Tablet 1 mg PO RQ4H PRN (Reason: Agitation) Qty: 30 RF: 0 olanzapine 10 mg tablet 10 mg PO DAILY Qty: 30 RF: 0 olanzapine 20 mg tablet 20 mg PO BEDTIME Qty: 30 RF: 0 Discharge Orders: Discharge Order (Routine); Ordered 08/25/20 Ordered By: Lyla Mtz Diet: advance to usual diet Activity on Discharge: No Restrictions Stand Alone Forms: Community Support Discharge Date/Time: 08/25/20 14:45 Visit Report Forms: Patient Portal Discharge page Care Plan Goals: Reduce depression Reduce paranoia Health Concerns: Paranoia and depressed mood Plan of Treatment: Stay on your medication Go to your FU appointments Mental Status Exam Mental Status Exam Patient Appearance: Well Grooomed Patient Orientation: Person, Place, Time and Situation Level of Consciousness: Awake Patient Behavior: Appropriate Mood Description: Calm and Anxious Affect Description: Calm Patient Cognition Impaired: No Ability to Follow Directions: Good Speech Pattern: Clear Memory Description: Intact Hallucinations: None Delusions: Paranoid Ideation Thought Process: Intact Thought Content: positive for [place], positive for Circumstantial, negative for Suicidal Ideation and negative for Homicidal Ideation Data Data Completed and Pending Completed studies during hospitalization [Text1]: 08/20/20 19:12 Valproic Acid 35.2 L Imaging Diagnostic Imaging Impressions Head CT 08/03/20 21:21 IMPRESSION: No acute intracranial pathology. DS: Summary Hospital Course Hospital Course: Patient is a 25 year old male who was seen by CARE team in the ER, after he was brought by EMS. A family member called about patient's suicidality. He carries the diagnosis of bipolar disorder and this is his first admission to but one of several admissions over the last 10 years. Patient denied SI during the assessment, but was endorsing it upon arrival. Patient was varied in presentation, sometimes guarded and sometimes sharing intimate detail. He has reported a history of significant and repeated head injury. He acknowledges a history of bipolar diagnosis but does not agree with this or any diagnosis. Denies AVH however patient appeared to be responding internally and endorsed paranoia. Denies current substance use. He reports a history of marijuana and psilocybin use. He reports no current providers. From the CARE team note: Patient presented with a variety of bizarre and incongruent behaviors during the assessment. Would often take long pauses before answering questions, and eye movement patterns indicated patient was listening to someone or something. Appeared to be consulting internally. Would let out long sighs, sometimes sounding exasperated. Sometimes would engage in what appeared to be calming or self-soothing breaths. Voice patterns would sometimes shift and change. Eye contact varied. At times, eye contact was intense and sometimes almost threatening. Patient seemed conflicted, tormented at times. Would ball fists and scratch at the sheets or scratch his knees, legs, and arms over his clothing. Would become very frustrated at the mention of his parents. At one point, CARE team offered patient to take a break and he began crying then started calmly asking about the switches and plugs in his room, then stated he needed to see a ware finisher, then began looking back and forth between the camera and the exit, stating cameras made him very uncomfortable. Then started hyperventilating then said I'm safe, then began crying again. Stated he needed to talk to a ware finisher. Said I'm not sure if I should tell you repeatedly. Eyes darting and presentation shifting rapidly. On arrival to the unit he remained quite labile. He was guarded and then tearful. He struggled to engage in the interview and said repeatedly that I am fine . He declines any medication and he signed a three day notice. According to his mother, he has had difficulty for 10 years. He dropped out of community college. She is not sure what treatment he has had in the last few years, since he was a young adult . He has apparently been shaken by COVID. He had returned to live with his mother after traveling for a year and a half in his van. He moved to this area in June to live with his cousin. His mother reports he has been declining over the last 1 - 2 months. Past Psychiatric History: Several admissions in last 10 years. Full history of medication trials is not known. He has been on lamictal, risperdal, lexapro and hydroxyzine Hospital Course Marlon was admitted on a CV, and placed on 15 minute checks. He was quite paranoid and he made several attempts to leave. He actually did escape on one occasion but was quickly returned to the unit. On several occasions early in the stay he had to receive chemical restraints since he was screaming and running up and down the halls. He submitted a 3 day notice but then retracted it but became very upset at this process and felt he had been tricked. he submitted another 3 day notice, and a s 7 was filed. Marlon recompensated slowly but did show a robust improvement. He agreed to sign back in to the hospital and there was no court procedure needed. BHAVIN was able to talk with his aunt on frequent occassions and she agreed that he was substantially improved. A DC was planned. Status at Discharge Functional status at discharge: independent ambulation Overall status at discharge: patient is progressing back to baseline Time Spent with Patient Time attestation: Total time spent providing and/or coordinating discharge services:
== END 2020-08-25 14:45 | disposition home or self-care (01) | DRG 753 ==
LOC: HO.ED 19:24 → HO.PM5 08-04 18:04
PROVIDERS: Nurse Practitioner Family; Admitting Provider Psychiatry & Neurology Psychiatry; Emergency Provider Emergency Medicine; Visit Provider Psychiatry & Neurology Psychiatry
DX: F31.4 Bipolar disorder, current episode depressed, severe, without psychotic features (principal); R45.851 Suicidal ideations; Z20.828 Contact with and (suspected) exposure to other viral communicable diseases; Z23 Encounter for immunization
CPT/HCPCS: 36415; 70450; 80048; 80061; 80076; 80164; 80307; 80320; 83036; 85025; 87635; 90686; 99222; 99232; 99233; 99285; J0515; J2060

== ENCOUNTER 2020-10-11 11:01 | Outpatient (REF) | payer BC, MEDICARE, MEDICAID, SELFPAY | END 2020-10-11 11:02 | disposition home or self-care (01) | LOC: HO.LAB 11:01 | PROVIDERS: Visit Provider Internal Medicine | DX: Z20.822 Contact with and (suspected) exposure to COVID-19 (principal) | CPT/HCPCS: 36415; C9803; U0003; U0005 ==

== ENCOUNTER 2020-10-11 18:12 | Inpatient (IN) | payer BC, SELFPAY ==
--- NOTE | 2020-10-11 18:49 | ED_ITS ---
HPI - Psych General Chief Complaint: Psychiatric Symptoms Stated Complaint: crisis Time Seen by Provider: 10/11/20 18:49 Source: patient Mode of arrival: ambulatory Limitations: no limitations History of Present Illness HPI Narrative: 25 y/o male with history of bipolar 1 disorder with recent admission to in August who presents to the ED with worsening depression, medication non-compliance and SI with plan to jump off of a fire escape. He reports a history of TBI and states he has been self medicating with illicit mushrooms. He denies other drug use or ETOH use. He stopped taking his medications about 2-3 weeks ago because he did not want to be sedated. He denies homicidal ideation and hallucinations. Related Data Previous Rx's Medication Instructions Recorded benztropine 1 mg PO BID #60 tab 08/25/20 divalproex 1,000 mg PO BID #120 tab 08/25/20 haloperidol 5 mg PO TID #90 tab 08/25/20 lorazepam 1 mg PO RQ4H PRN #30 tab 08/25/20 olanzapine 10 mg PO DAILY #30 tab 08/25/20 olanzapine 20 mg PO BEDTIME #30 tab 08/25/20 Allergies Allergy/AdvReac Type Severity Reaction Status Date / Time No Known Allergies Allergy Verified 08/03/20 18:02 Review of Systems Review of Systems: Constitutional: No Fever, No Chills Cardiovascular: No Chest Pain, No SOB Respiratory: No Cough, No Sputum Gastrointestinal: No Nausea, No Vomiting, No Diarrhea, No abdominal Pain Genitourinary: No Dysuria, No Urinary Frequency, No Hematuria Musculoskeletal: No joint pain, No Myalgias Skin: No Skin Lesions, No rash Neuro: No Weakness, No Numbness, No Dizziness, + Headache Psych: + Anxiety/Panic, + Depression, +SI, No HI, No hallucinations. Heme/Lymph: No Bruising PMFSH Past Medical History Attestation statement: The following information was validated with the patient. Medical History Depression Depression Suicidal behavior Social History Social History (Updated 08/03/20 @ 18:15 by Keerthi Pope DO) Household Members: Family Housing: Apartment Alcohol intake: former Smoking Status: Current every day smoker Smoked in Last 30 Days: Yes Second Hand Smoke Exposure: No Use of substances other than those prescribed or required for medical reasons: Yes Substance Use Type: Hallucinogens Substance Use Type Other:: Mushrooms Substance Use Frequency: Occasionally Last Used Substance: Unknown Any prior treatment program specific to substance use: Yes (Seen on M5) Advance Directives: No Advance Directives Information Provided: Yes service: No Physical Exam Vital Signs: Vital Signs: Last Vital Signs Temp 97.7 F 10/11/20 19:39 Pulse 84 10/11/20 19:39 Resp 18 10/11/20 19:39 BP 127/84 10/11/20 19:39 Pulse Ox 98 10/11/20 19:39 Body Mass Index 26.4 Appearance: Alert. Oriented X3. No acute distress. Eyes: Pupils equal, round and reactive to light. ENT: Pharynx normal. Neck: Normal inspection. Neck supple. CVS: Normal heart rate and rhythm. Pulses normal. Respiratory: No respiratory distress. Breath sounds normal. Abdomen: Soft and nontender. +BS x4 Skin: Skin warm and dry. Normal skin color. Normal skin turgor. No rashes. Extremities: No lower extremity edema. Neuro: Oriented X 3. No motor deficit. No sensory deficit. Psych: hyperfocused on TBI, no delusions, poor insight, +SI Course Course Course Narrative: 25 y/o male with hx bipolar 1 disorder, TBI who presents with severe depression with SI and a plan. He has been non-compliant with his medications, using hallucinogenic mushrooms to self medicate. AAO x3, calm and cooperative on exam. Will get labs, Utox and BHN evaluation. Reevaluation(s) Reevaluation #1: CARE team evaluated the patient - recommending inpatient level of care. Section 12 signed by . Patient agreeable at this time. MDM - Psych Medical Records Attestation: I reviewed the patient's medical records. Lab Data Result diagrams: 10/11/20 19:38 10/11/20 19:38 Labs: Lab Results 10/11/20 10/11/20 10/11/20 Range/Units 19:38 19:38 19:38 WBC 9.3 (4.8-10.8) X10*3/uL RBC 5.37 (4.60-5.80) X10*6/uL Hgb 16.2 (14.0-18.0) g/dl Hct 46.5 (42-52) % MCV 86.6 (80-98) fL MCH 30.2 (27.0-33.0) pg MCHC 34.8 (31.0-36.0) g/dl RDW 12.6 (11.0-16.0) % Plt Count 203 (160-400) X10*3/uL MPV 12.7 H (9.4-12.4) fL Immature Gran % (Auto) 0.6 H (0.0-0.4) % Neut % (Auto) 70.8 (45-73) % Lymph % (Auto) 19.5 L (20-40) % [place] % (Auto) 7.0 (2-11) % Eos % (Auto) 1.8 (0-4) % Baso % (Auto) 0.3 (0-2) % Lymph # (Auto) 1.8 (1.2-4.9) X10*3/uL [place] # (Auto) 0.7 (0.1-1.2) X10*3/uL Eos # (Auto) 0.2 (0.0-0.4) X10*3/uL Baso # (Auto) 0.0 (0.0-0.2) X10*3/uL Abs Immat Gran (auto) 0.06 H (0.00-0.03) X10*3/uL Absolute Neuts (auto) 6.6 (2.0-8.3) X10*3/uL Absolute Nucleated RBC 0.000 (0.0-0.012) X10*3/uL Nucleated RBC % (auto) 0.0 (0.0-0.2) /100WBC Sodium 135 (135-145) mmol/L Potassium 4.0 (3.3-5.1) mmol/L Chloride 100 (96-108) mmol/L Carbon Dioxide 27 (22-29) mmol/L Anion Gap 12 (12-20) BUN 20 H (9-16) mg/dL Creatinine 1.15 (0.5-1.4) mg/dL Estim Creat Clear Calc 110.0 Estimated GFR > 60 Random Glucose 87 (60-115) mg/dL Calcium 9.4 (8.4-10.2) mg/dL Magnesium 2.0 (1.6-2.6) mg/dL Total Bilirubin 1.2 H (0.0-1.0) mg/dL Direct Bilirubin 0.5 (0.0-0.5) mg/dL AST 23 D (5-37) U/L ALT 40 (0-40) U/L Alkaline Phosphatase 86 (39-117) U/L Total Protein 7.5 (6.5-8.0) g/dL Albumin 5.0 (3.5-5.0) g/dL Urine Color Urine Appearance Urine pH (5.0-8.0) Ur Specific [place] (1.005-1.025) Urine Protein (NEG-TRACE) MG/DL Urine Glucose (UA) (NEG) MG/DL Urine Ketones (NEG) MG/DL Urine Blood (NEG) Urine Nitrite (NEG) Ur Leukocyte Esterase (NEG) Urine Opiates Screen (Not Detect) Ur Barbiturates Screen (Not Detect) Ur Phencyclidine Scrn (Not Detect) Ur Amphetamines Screen (Not Detect) U Benzodiazepines Scrn (Not Detect) Urine Cocaine Screen (Not Detect) U Marijuana (THC) Screen (Not Detect) Ethyl Alcohol < 10 mg/dL COVID-19 (ROE) (Negative) COVID-19 Clin Com 10/11/20 10/11/20 10/11/20 Range/Units 19:38 19:38 19:46 WBC (4.8-10.8) X10*3/uL RBC (4.60-5.80) X10*6/uL Hgb (14.0-18.0) g/dl Hct (42-52) % MCV (80-98) fL MCH (27.0-33.0) pg MCHC (31.0-36.0) g/dl RDW (11.0-16.0) % Plt Count (160-400) X10*3/uL MPV (9.4-12.4) fL Immature Gran % (Auto) (0.0-0.4) % Neut % (Auto) (45-73) % Lymph % (Auto) (20-40) % [place] % (Auto) (2-11) % Eos % (Auto) (0-4) % Baso % (Auto) (0-2) % Lymph # (Auto) (1.2-4.9) X10*3/uL [place] # (Auto) (0.1-1.2) X10*3/uL Eos # (Auto) (0.0-0.4) X10*3/uL Baso # (Auto) (0.0-0.2) X10*3/uL Abs Immat Gran (auto) (0.00-0.03) X10*3/uL Absolute Neuts (auto) (2.0-8.3) X10*3/uL Absolute Nucleated RBC (0.0-0.012) X10*3/uL Nucleated RBC % (auto) (0.0-0.2) /100WBC Sodium (135-145) mmol/L Potassium (3.3-5.1) mmol/L Chloride (96-108) mmol/L Carbon Dioxide (22-29) mmol/L Anion Gap (12-20) BUN (9-16) mg/dL Creatinine (0.5-1.4) mg/dL Estim Creat Clear Calc Estimated GFR Random Glucose (60-115) mg/dL Calcium (8.4-10.2) mg/dL Magnesium (1.6-2.6) mg/dL Total Bilirubin (0.0-1.0) mg/dL Direct Bilirubin (0.0-0.5) mg/dL AST (5-37) U/L ALT (0-40) U/L Alkaline Phosphatase (39-117) U/L Total Protein (6.5-8.0) g/dL Albumin (3.5-5.0) g/dL Urine Color YELLOW Urine Appearance CLEAR Urine pH 5.5 (5.0-8.0) Ur Specific [place] <= 1.005 (1.005-1.025) Urine Protein NEG (NEG-TRACE) MG/DL Urine Glucose (UA) NEG (NEG) MG/DL Urine Ketones NEG (NEG) MG/DL Urine Blood NEG (NEG) Urine Nitrite NEG (NEG) Ur Leukocyte Esterase NEG (NEG) Urine Opiates Screen Not Detected (Not Detect) Ur Barbiturates Screen Not Detected (Not Detect) Ur Phencyclidine Scrn Not Detected (Not Detect) Ur Amphetamines Screen Not Detected (Not Detect) U Benzodiazepines Scrn Not Detected (Not Detect) Urine Cocaine Screen Not Detected (Not Detect) U Marijuana (THC) Screen Not Detected (Not Detect) Ethyl Alcohol mg/dL COVID-19 (ROE) Negative (Negative) COVID-19 Clin Com See Note Discharge Plan Discharge Clinical Impression: Bipolar 1 disorder, depressed, severe Prescriptions: No Action benztropine 0.5 mg Tablet 1 mg PO BID Qty: 60 RF: 0 haloperidol 5 mg Tablet 5 mg PO TID Qty: 90 RF: 0 divalproex 500 mg Tablet,Delayed Release (Dr/Ec) 1,000 mg PO BID Qty: 120 RF: 0 lorazepam 1 mg Tablet 1 mg PO RQ4H PRN (Reason: Agitation) Qty: 30 RF: 0 olanzapine 10 mg tablet 10 mg PO DAILY Qty: 30 RF: 0 olanzapine 20 mg tablet 20 mg PO BEDTIME Qty: 30 RF: 0
[2020-10-11 19:21] VITALS: BP 127/84; PULSE 84; RESP 18; TEMP 36.5; O2SAT 98; BMI 26.4
[2020-10-11 19:39] VITALS: BP 127/84; PULSE 84; RESP 18; TEMP 36.5; O2SAT 98
[2020-10-11 19:54] LABS: MANUAL DIFF FLAG NO
[2020-10-11 19:57] LABS: Basophils Percent Auto 0.3 % (0-2); Eosinophils Absolute Auto 0.2 X10*3/uL (0.0-0.4); Eosinophils Percent Auto 1.8 % (0-4); Hematocrit 46.5 % (42-52); Hemoglobin 16.2 g/dl (14.0-18.0); Imm Gran Abs Auto 0.06 X10*3/uL (0.00-0.03); Imm Gran Pct Auto 0.6 % (0.0-0.4); Lymphocytes Absolute Auto 1.8 X10*3/uL (1.2-4.9); Lymphocytes Percent Auto 19.5 % (20-40); Mean Corpuscular HGB Conc 34.8 g/dl (31.0-36.0); Mean Corpuscular Hemoglobin 30.2 pg (27.0-33.0); Mean Corpuscular Volume 86.6 fL (80-98); Mean Platelet Volume 12.7 fL (9.4-12.4); Monocytes Absolute Auto 0.7 X10*3/uL (0.1-1.2); Neutrophils Absolute Auto 6.6 X10*3/uL (2.0-8.3); Neutrophils Percent Auto 70.8 % (45-73); Platelet Count 203 X10*3/uL (160-400); Red Blood Count 5.37 X10*6/uL (4.60-5.80); Red Cell Distribution Width 12.6 % (11.0-16.0); White Blood Count 9.3 X10*3/uL (4.8-10.8)
[2020-10-11 20:10] LABS: COVID-19 Test Negative (Negative); IDNOW Serial# 9DD0AD1C
[2020-10-11 20:15] LABS: Ethanol < 10 mg/dL
[2020-10-11 20:18] LABS: Alanine Aminotransferase 40 U/L (0-40); Alkaline Phosphatase 86 U/L (39-117); Anion Gap 12 (12-20); Aspartate Amino Transferase 23 U/L (5-37); Bilirubin Direct 0.5 mg/dL (0.0-0.5); Bilirubin Total 1.2 mg/dL (0.0-1.0); Blood Urea Nitrogen 20 mg/dL (9-16); Calcium 9.4 mg/dL (8.4-10.2); Carbon Dioxide 27 mmol/L (22-29); Chloride 100 mmol/L (96-108); Estimated Glomerular Filt Rate > 60; Glucose Random 87 mg/dL (60-115); Sodium 135 mmol/L (135-145); Total Protein 7.5 g/dL (6.5-8.0)
[2020-10-11 20:28] LABS: Appearance Urine CLEAR; Color Urine YELLOW; Glucose Urine UA NEG (NEG); Leukocyte Esterase Urine NEG (NEG); Nitrite Urine NEG (NEG); PH 5.5 (5.0-8.0); Specific Gravity - Urine <= 1.005 (1.005-1.025); Urine Blood NEG (NEG); Urine Ketones NEG (NEG); Urine Protein NEG (NEG-TRACE)
[2020-10-11 20:52] LABS: Amphetamine Screen Urine Not Detected (Not Detect); Barbiturates, Urine Not Detected (Not Detect); Benzodiazepines Screen Urine Not Detected (Not Detect); Cannabinoid Screen Urine Not Detected (Not Detect); Cocaine Screen Urine Not Detected (Not Detect); Opiate Screen Urine Not Detected (Not Detect); Phencyclidine Screen Urine Not Detected (Not Detect)
--- NOTE | 2020-10-11 21:03 | PC.NURSE ---
[facility] faxed and called. [facility] stated that no one is available to see the PT until at least tomorrow morning.
--- NOTE | 2020-10-11 21:17 | PC.NURSE ---
PT is being seen by CARE team.
[2020-10-11] MEDS: Acetaminophen 325 MG TABLET 650 MG PO (21:56)
[2020-10-11] MEDS: Melatonin 3 MG TABLET 6 MG PO (22:19)
--- NOTE | 2020-10-12 03:06 | PC.NURSE ---
PT woke up after 3 hours of sleep and stated that he has not been able to sleep that long in awhile. PT is now pacing around the unit. Calm and cooperative.
[2020-10-12] MEDS: Acetaminophen 325 MG TABLET 650 MG PO (04:05)
--- NOTE | 2020-10-12 04:37 | PC.NURSE ---
PT complaining of a persistent headache that is not relieved by medication or warm compress. PT allowed to use shower as an alternative to help the pain.
[2020-10-12] MEDS: Ibuprofen 400 MG TABLET PO (05:20)
[2020-10-12 06:15] VITALS: RESP 18
--- NOTE | 2020-10-12 07:05 | PC.NURSE ---
Report received, pt currently pacing on the unit, complaining of a headache, denies other complaints. Pt is inpatient bedsearch.
[2020-10-12 08:29] LABS: Valproate < 2.0 mcg/mL (50.0-100.0)
[2020-10-12 08:57] VITALS: BP 133/77; PULSE 78; RESP 16; TEMP 37.2; O2SAT 95
--- NOTE | 2020-10-12 09:06 | PC.NURSE ---
Pt declined AM medications, states he thinks they are making the discomfort from his TBI worse. PT would like to speak with psychiatrist about medications if not placed today
[2020-10-12] MEDS: Butalb/Acetamin/Caff 50/325/40 TABLET 1 TAB PO ×2 (09:22→14:07)
[2020-10-12 17:11] VITALS: BP 114/54; PULSE 85; RESP 16; TEMP 36.6; O2SAT 97
[2020-10-12 18:00] VITALS: BP 127/79; PULSE 75; RESP 16; TEMP 36.3
--- NOTE | 2020-10-12 19:33 | PC.ADMIT ---
Pt is a 25 year old male who presents to m5 from [facility] ED at aprrox 17:35 on a cv status. pt is covid -, utox -. Pt was seeking help for worsening symptoms of depression marked by increasing thoughts of suicide with a plan to hang self, poor sleep and feelings of helplessness and hopelessness. Pt mentioned I want medications to teat TBI . Pt is know and prior inpt psych admission was 08/04/20 -08/25/20. Pt has stopped taking his medication approx some time in mid September. Pt has a outpt therapist, and medication management through [facility]. Pt is on 5 minute safety checks. Pt reportedly mad SI statements but denies SI/HI on admit. Denies AH/VH. Provider Aster Salcedo called and notified of admission. Pt was pleasant and cooperative on admit and mentioned that he wanted to sleep. Pt had a flat affect. Clear thoughts. Stable mood. Start treatment plan and monitor for safety
[2020-10-12] MEDS: Benztropine Mesylate 0.5 MG TABLET 1 MG PO (20:55)
[2020-10-12] MEDS: OLANZapine 10 MG TABLET 20 MG PO (20:55)
[2020-10-12] MEDS: HaloperidoL 5 MG TABLET PO (20:55)
[2020-10-12] MEDS: Divalproex Sodium 500 MG TABLET.DR PO (21:02)
[2020-10-12] MEDS: Divalproex Sodium 500 MG TABLET.DR 1000 MG PO (21:02)
[2020-10-13] MEDS: Cholecalciferol (Vitamin D3) 25 MCG TABLET 125 MCG PO (08:25)
[2020-10-13] MEDS: OLANZapine 10 MG TABLET PO (08:25)
[2020-10-13] MEDS: Divalproex Sodium 500 MG TABLET.DR PO ×2 (08:25→20:56)
[2020-10-13] MEDS: Divalproex Sodium 500 MG TABLET.DR 1000 MG PO ×2 (08:25→20:55)
[2020-10-13] MEDS: HaloperidoL 5 MG TABLET PO ×3 (08:26→20:55)
[2020-10-13] MEDS: Benztropine Mesylate 0.5 MG TABLET 1 MG PO ×2 (08:26→20:55)
[2020-10-13 09:17] LABS: Estimated Average Glucose 91 mg/dL; Hemoglobin A1c % 4.8 %
[2020-10-13 09:20] LABS: Alanine Aminotransferase 28 U/L (0-40); Albumin Level 4.2 g/dL (3.5-5.0); Alkaline Phosphatase 63 U/L (39-117); Anion Gap 12 (12-20); Aspartate Amino Transferase 19 U/L (5-37); Bilirubin Direct 0.4 mg/dL (0.0-0.5); Bilirubin Total 0.9 mg/dL (0.0-1.0); Blood Urea Nitrogen 14 mg/dL (9-16); Calcium 8.6 mg/dL (8.4-10.2); Carbon Dioxide 28 mmol/L (22-29); Chloride 105 mmol/L (96-108); Cholesterol 179 mg/dL; Creatinine Clr Calc Pharmacy 130.4; Estimated Glomerular Filt Rate > 60; Glucose Fasting 86 mg/dL (60-99); HDL Cholesterol 52 mg/dL; LDL Cholesterol Calculated 117 mg/dl; Potassium 4.4 mmol/L (3.3-5.1); Sodium 141 mmol/L (135-145); Total Protein 6.5 g/dL (6.5-8.0); Triglycerides 53 mg/dL
[2020-10-13] MEDS: Flu Vacc QS2020-21(6mos up)/PF 0.5 ML SYRINGE IM (16:46)
[2020-10-13 18:00] VITALS: BP 121/70; PULSE 62; TEMP 36.7
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
[2020-10-13] MEDS: OLANZapine 10 MG TABLET 20 MG PO (20:56)
[2020-10-14 05:30] VITALS: BP 126/65; PULSE 80; RESP 18; TEMP 36.7; O2SAT 97
[2020-10-14] MEDS: Benztropine Mesylate 0.5 MG TABLET 1 MG PO ×2 (09:23→19:52)
[2020-10-14] MEDS: Cholecalciferol (Vitamin D3) 25 MCG TABLET 125 MCG PO (09:23)
[2020-10-14] MEDS: OLANZapine 10 MG TABLET PO (09:23)
[2020-10-14] MEDS: Nicotine Polacrilex 2 MG GUM BUCCAL (09:24)
[2020-10-14] MEDS: Divalproex Sodium 500 MG TABLET.DR 1000 MG PO ×2 (09:24→19:53)
[2020-10-14] MEDS: HaloperidoL 5 MG TABLET PO ×3 (09:24→19:53)
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
[2020-10-14 15:06] LABS: Influenza A PCR NEGATIVE (Negative); Influenza B PCR NEGATIVE (Negative); Resp Syncy Virus RNA Qual PCR NEGATIVE (Negative); SARS COV2 PCR INHOUSE NEGATIVE (Negative)
[2020-10-14 16:59] VITALS: BP 131/79; PULSE 95; RESP 20; TEMP 36.7; O2SAT 95
[2020-10-14 19:52] VITALS: BP 131/79; PULSE 95
[2020-10-14] MEDS: OLANZapine 10 MG TABLET 20 MG PO (19:52)
[2020-10-14] MEDS: cloNIDine HCL 0.1 MG TABLET PO (19:52)
[2020-10-15 06:05] VITALS: BP 121/74; PULSE 68; RESP 18; TEMP 36.6; O2SAT 98
[2020-10-15] MEDS: Divalproex Sodium 500 MG TABLET.DR 1000 MG PO ×2 (08:41→20:18)
[2020-10-15] MEDS: HaloperidoL 5 MG TABLET PO ×3 (08:41→20:18)
[2020-10-15] MEDS: Cholecalciferol (Vitamin D3) 25 MCG TABLET 125 MCG PO (08:41)
[2020-10-15] MEDS: Benztropine Mesylate 0.5 MG TABLET 1 MG PO ×2 (08:41→20:19)
[2020-10-15] MEDS: Nicotine Polacrilex 2 MG GUM BUCCAL ×2 (08:41→15:19)
[2020-10-15] MEDS: OLANZapine 10 MG TABLET PO (08:41)
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
--- NOTE | 2020-10-15 15:54 | HO.PSYCHPN ---
Subjective Subjective Date of Service: 10/15/20 Reason For Visit: bipolar disorder Subjective Notes: Conditional Voluntary Interim History: Pt asking for stimulants. Tolerated clonidine. Seen by Dr. Giles who suggested initiation of Topiramate 50 mg and Sumatriptan prn which were started. Discussed with pt concerns about stimulants and manuela. Will trial clonidine throughout the weekend. Review of Systems Review of Systems Yes all other systems are reviewed and are negative Psychiatric: Reports difficulty concentrating, Reports irritability and Reports suicidal ideation (denies) Mental Status Exam Mental Status Exam Patient Appearance: Appropriate Patient Orientation: Person, Place, Time and Situation Level of Consciousness: Sedated and Alert Patient Behavior: Appropriate, Talkative, Cooperative, Suspicious and Fatigued Mood Description: Constricted Affect Description: Constricted Patient Cognition Impaired: No Ability to Follow Directions: Good Speech Pattern: Spontaneous Speech Memory Description: Episodic Impaired Hallucinations: None (denies) Delusions: Paranoid Ideation Thought Process: Distracted and Rumination Thought Content: positive for [place], positive for Circumstantial and positive for Persever[place] Depressive Symptoms: Increased Anxiety and Increased Irritability Judgement: Fair Diagnostics Vital Signs (24Hr): Vital Signs - 24 hr 10/14/20 16:59 10/14/20 19:52 10/15/20 06:05 Temperature 98.0 F 97.9 F Pulse Rate 95 95 68 Respiratory Rate 20 18 Blood Pressure 131/79 131/79 121/74 Pulse Oximetry 95 98 Body Mass Index 26.4 Labs Results: 10/11/20 19:38 10/13/20 07:51 Labs: Laboratory Results - last 48 hr 10/14/20 13:54 Coronavirus (PCR) NEGATIVE Influenza Type A (PCR) NEGATIVE Influenza Type B (PCR) NEGATIVE RSV RNA Qual (PCR) NEGATIVE Medications Medications Current Medications Generic Name Dose Route Start Last Admin Trade Name Freq PRN Reason Stop Dose Admin Acetaminophen 650 mg 10/12/20 17:54 Acetaminophen 325 Mg Tablet PO Q6H PRN Headache/Pain Mild Scale (1-3) Al Hydroxide/Mg Hydroxide 30 ml 10/12/20 17:54 Magnesium Hydrox/Alum Hydrox 30 Ml Oral.Susp PO Q6H PRN Heartburn/Nausea Benztropine Mesylate 1 mg 10/12/20 09:00 10/15/20 08:41 Benztropine Mesylate 0.5 Mg Tablet PO 1 mg BID LU Administration Clonidine HCl 0.1 mg 10/14/20:00 10/14/20 19:52 Clonidine Hcl 0.1 Mg Tablet PO 0.1 mg BEDTIME LU Administration Protocol Divalproex Sodium 1,000 mg 10/12/20 09:00 10/15/20 08:41 Divalproex Sodium 500 Mg Tablet. PO 1,000 mg BID LU Administration Haloperidol 5 mg 10/12/20 09:00 10/15/20 14:47 Haloperidol 5 Mg Tablet PO 5 mg TID LU Administration Lorazepam 1 mg 10/12/20 08:36 Lorazepam 1 Mg Tablet PO Q4H PRN Agitation Magnesium Hydroxide 30 ml 10/12/20 17:54 Milk Of Magnesia 30 Ml Oral.Susp PO DAILY PRN Constipation Nicotine Polacrilex 2 mg 10/12/20 17:54 10/15/20 15:19 Nicotine Polacrilex 2 Mg Gum BUCCAL 2 mg Q2H PRN Administration Nicotine Cravings Olanzapine 10 mg 10/12/20 09:00 10/15/20 08:41 Olanzapine 10 Mg Tablet PO 10 mg DAILY LU Administration Olanzapine 20 mg 10/12/20 21:00 10/14/20 19:52 Olanzapine 10 Mg Tablet PO 20 mg BEDTIME LU Administration Olanzapine 5 mg 10/12/20 18:55 Olanzapine 5 Mg Tablet PO Q4H PRN Psychosis Pharmacy Consult 1 each 10/12/20 07:00 Consult Rx Perform Med Rec MISCELLANE ONCE PRN Consult order Sumatriptan Succinate 50 mg 10/15/20 10:33 Sumatriptan Succinate 50 Mg Tablet PO DAILY PRN headache pain Topiramate 50 mg 10/15/20 21:00 Topiramate 25 Mg Tablet PO BEDTIME LU Trazodone HCl 50 mg 10/12/20 17:54 Trazodone Hcl 50 Mg Tablet PO BEDTIME PRN Insomnia Vitamin D 125 mcg 10/12/20 09:00 10/15/20 08:41 Cholecalciferol (Vitamin D3) 25 Mcg Tablet PO 125 mcg DAILY LU Administration Allergies Allergies Allergy/AdvReac Type Severity Reaction Status Date / Time No Known Allergies Allergy Verified 08/03/20 18:02 Assessment & Plan Assessment & Plan (1) Migraine aura without headache: Status: Acute Code(s): G43.109 - Migraine with aura, not intractable, without status migrainosus Assessment and Plan: Much appreciation for Dr. Giles's consult and recommendations. -Topiramate 50 mg daily -Sumatriptal 50 mg daily prn headache pain (2) History of concussion: Status: Acute Code(s): Z87.820 - Personal history of traumatic brain injury (3) Bipolar 1 disorder, depressed, severe: Status: Acute Code(s): F31.4 - Bipolar disorder, current episode depressed, severe, without psychotic features Assessment and Plan: -Continue current regime -Clonidine trial for the weekend-pt reporting poor focus, reports previous ADHD diagnosis and wanting a stimulant which may activate mood sx currently. (4) Paranoid ideation: Status: Suspected Code(s): F22 - Delusional disorders Greater than 50% of the session was spent on counseling and/or coordination of care Reason for contiued inpatient stay Substantial Risk for: harm to self, harm to others, inability to function and rapid decompensation
[2020-10-15 18:00] VITALS: BP 129/67; PULSE 89; TEMP 36.9
--- NOTE | 2020-10-15 18:08 | PC.NURSE ---
Marlon Aviles put in a 3-day notice today
[2020-10-15 20:18] VITALS: BP 127/83; PULSE 89
[2020-10-15] MEDS: OLANZapine 10 MG TABLET 20 MG PO (20:18)
[2020-10-15] MEDS: cloNIDine HCL 0.1 MG TABLET PO (20:18)
[2020-10-15] MEDS: Topiramate 25 MG TABLET 50 MG PO (20:19)
[2020-10-16 05:50] VITALS: BP 119/74; PULSE 75; RESP 16; TEMP 36.4; O2SAT 98
--- NOTE | 2020-10-16 08:04 | PC.NURSE ---
D/t confusion of pt's 3-say notice pt filled out another 3 day form which will be up on the same date 10/20
[2020-10-16] MEDS: Divalproex Sodium 500 MG TABLET.DR 1000 MG PO ×2 (08:06→20:07)
[2020-10-16] MEDS: HaloperidoL 5 MG TABLET PO ×3 (08:06→20:08)
[2020-10-16] MEDS: Cholecalciferol (Vitamin D3) 25 MCG TABLET 125 MCG PO (08:06)
[2020-10-16] MEDS: OLANZapine 10 MG TABLET PO (08:06)
[2020-10-16] MEDS: Benztropine Mesylate 0.5 MG TABLET 1 MG PO ×2 (08:06→20:06)
[2020-10-16] MEDS: LORazepam 1 MG TABLET PO (09:11)
[2020-10-16] MEDS: Nicotine Polacrilex 2 MG GUM BUCCAL ×2 (09:11→16:23)
--- NOTE | 2020-10-16 18:20 | P.PNPSI_ITS ---
Subjective Subjective Date of Service: 10/16/20 Reason For Visit: bipolar disorder Subjective Notes: 3 Day Interim History: Pt doing well with clonidine. Seen by Dr. Giles who suggested initiation of Topiramate 50 mg and Sumatriptan prn which were started. Medication Compliance: Yes Side effects from medications: No Attending Groups: Intermittent Review of Systems Review of Systems No recent trauma cold or flu-like illness Yes all other systems are reviewed and are negative Musculoskeletal: Reports numbness Reports behavioral changes, Reports focal weakness, Reports numbness and Reports other (left sided head pain) Psychiatric: Reports behavioral changes, Reports difficulty concentrating, Reports irritability and Reports suicidal ideation (denies) Mental Status Exam Mental Status Exam Patient Appearance: Appropriate Patient Orientation: Person, Place, Time and Situation Level of Consciousness: Sedated and Alert Patient Behavior: Appropriate, Talkative, Cooperative, Suspicious and Fatigued Mood Description: Constricted Affect Description: Constricted Patient Cognition Impaired: No Ability to Follow Directions: Good Speech Pattern: Spontaneous Speech Memory Description: Episodic Impaired Thought Content: positive for [place] Judgement: Fair Diagnostics Vital Signs (24Hr): Vital Signs - 24 hr 10/15/20 20:18 10/16/20 05:50 Temperature 97.5 F Pulse Rate 89 75 Respiratory Rate 16 Blood Pressure 127/83 119/74 Pulse Oximetry 98 Body Mass Index 26.4 Labs Results: 10/11/20 19:38 10/13/20 07:51 Medications Medications Current Medications Generic Name Dose Route Start Last Admin Trade Name Freq PRN Reason Stop Dose Admin Acetaminophen 650 mg 10/12/20 17:54 Acetaminophen 325 Mg Tablet PO Q6H PRN Headache/Pain Mild Scale (1-3) Al Hydroxide/Mg Hydroxide 30 ml 10/12/20 17:54 Magnesium Hydrox/Alum Hydrox 30 Ml Oral.Susp PO Q6H PRN Heartburn/Nausea Benztropine Mesylate 1 mg 10/12/20 09:00 10/16/20 08:06 Benztropine Mesylate 0.5 Mg Tablet PO 1 mg BID LU Administration Clonidine HCl 0.1 mg 10/14/20 21:00 10/15/20 20:18 Clonidine Hcl 0.1 Mg Tablet PO 0.1 mg BEDTIME LU Administration Protocol Divalproex Sodium 1,000 mg 10/12/20 09:00 10/16/20 08:06 Divalproex Sodium 500 Mg Tablet.Dr PO 1,000 mg BID LU Administration Haloperidol 5 mg 10/12/20 09:00 10/16/20 14:19 Haloperidol 5 Mg Tablet PO 5 mg TID LU Administration Lorazepam 1 mg 10/12/20 08:36 10/16/20 09:11 Lorazepam 1 Mg Tablet PO 1 mg Q4H PRN Administration Agitation Magnesium Hydroxide 30 ml 10/12/20 17:54 Milk Of Magnesia 30 Ml Oral.Susp PO DAILY PRN Constipation Nicotine Polacrilex 2 mg 10/12/20 17:54 10/16/20 16:23 Nicotine Polacrilex 2 Mg Gum BUCCAL 2 mg Q2H PRN Administration Nicotine Cravings Olanzapine 10 mg 10/12/20 09:00 10/16/20 08:06 Olanzapine 10 Mg Tablet PO 10 mg DAILY LU Administration Olanzapine 20 mg 10/12/20 21:00 10/15/20 20:18 Olanzapine 10 Mg Tablet PO 20 mg BEDTIME LU Administration Olanzapine 5 mg 10/12/20 18:55 Olanzapine 5 Mg Tablet PO Q4H PRN Psychosis Pharmacy Consult 1 each 10/12/20 07:00 Consult Rx Perform Med Rec MISCELLANE ONCE PRN Consult order Sumatriptan Succinate 50 mg 10/15/20 10:33 Sumatriptan Succinate 50 Mg Tablet PO DAILY PRN headache pain Topiramate 50 mg 10/15/20 21:00 10/15/20 20:19 Topiramate 25 Mg Tablet PO 50 mg BEDTIME LU Administration Trazodone HCl 50 mg 10/12/20 17:54 Trazodone Hcl 50 Mg Tablet PO BEDTIME PRN Insomnia Vitamin D 125 mcg 10/12/20 09:00 10/16/20 08:06 Cholecalciferol (Vitamin D3) 25 Mcg Tablet PO 125 mcg DAILY LU Administration Allergies Allergies Allergy/AdvReac Type Severity Reaction Status Date / Time No Known Allergies Allergy Verified 08/03/20 18:02 Assessment & Plan Assessment & Plan (1) Migraine aura without headache: Status: Acute Code(s): G43.109 - Migraine with aura, not intractable, without status migrainosus (2) History of concussion: Status: Acute Code(s): Z87.820 - Personal history of traumatic brain injury (3) Bipolar 1 disorder, depressed, severe: Status: Acute Code(s): F31.4 - Bipolar disorder, current episode depressed, severe, without psychotic features (4) Paranoid ideation: Status: Suspected Code(s): F22 - Delusional disorders Assessment and Plan: Continue with Dr Giles recommendations: -Topiramate 50 mg daily -Sumatriptal 50 mg daily prn headache pain -Continue current psychiatric medication regime -Monitor response to Clonidine for focus, reports previous ADHD diagnosis and wanting a stimulant which may activate mood sx currently. Greater than 50% of the session was spent on counseling and/or coordination of care Patient educated on: therapeutic strategies Informed Consent: further education needed Reason for contiued inpatient stay Substantial Risk for: harm to self, rapid decompensation and med/psych decompensation
[2020-10-16 19:10] VITALS: BP 130/75; PULSE 106; TEMP 36.7
[2020-10-16 20:06] VITALS: BP 130/75; PULSE 106
[2020-10-16] MEDS: cloNIDine HCL 0.1 MG TABLET PO (20:06)
[2020-10-16] MEDS: OLANZapine 10 MG TABLET 20 MG PO (20:06)
[2020-10-16] MEDS: Topiramate 25 MG TABLET 50 MG PO (20:07)
[2020-10-17 04:30] VITALS: BP 126/65; PULSE 95; RESP 16; TEMP 36.3; O2SAT 96
[2020-10-17] MEDS: Divalproex Sodium 500 MG TABLET.DR 1000 MG PO ×2 (08:13→21:38)
[2020-10-17] MEDS: Cholecalciferol (Vitamin D3) 25 MCG TABLET 125 MCG PO (08:13)
[2020-10-17] MEDS: HaloperidoL 5 MG TABLET PO ×3 (08:13→21:38)
[2020-10-17] MEDS: Benztropine Mesylate 0.5 MG TABLET 1 MG PO ×2 (08:13→21:37)
[2020-10-17] MEDS: OLANZapine 10 MG TABLET PO (08:13)
[2020-10-17] MEDS: Nicotine Polacrilex 2 MG GUM BUCCAL ×2 (08:21→10:29)
[2020-10-17 16:29] VITALS: BP 135/75; PULSE 99; TEMP 36.6
--- NOTE | 2020-10-17 16:52 | HO.PSYCHPN ---
Subjective Subjective Date of Service: 10/17/20 Reason For Visit: bipolar disorder Interim History: Pt doing well with clonidine and Topiramate 50 mg and Sumatriptan prn. He reports sleeping well; offers no complaint of side effects. Feeling ready for d/c Medication Compliance: Yes Side effects from medications: No Attending Groups: No Review of Systems Review of Systems No recent trauma cold or flu-like illness Yes all other systems are reviewed and are negative Musculoskeletal: Reports numbness Reports behavioral changes, Reports focal weakness, Reports numbness and Reports other (left sided head pain) Psychiatric: Reports behavioral changes, Reports difficulty concentrating, Reports irritability and Reports suicidal ideation (denies) Mental Status Exam Mental Status Exam Patient Appearance: Appropriate Patient Orientation: Person, Place, Time and Situation Level of Consciousness: Sedated and Alert Patient Behavior: Appropriate, Talkative, Cooperative, Suspicious and Fatigued Mood Description: Constricted Affect Description: Constricted Patient Cognition Impaired: No Ability to Follow Directions: Good Speech Pattern: Spontaneous Speech Memory Description: Episodic Impaired Judgement: Good Diagnostics Vital Signs (24Hr): Vital Signs - 24 hr 10/16/20 19:10 10/16/20 20:06 10/17/20 04:30 Temperature 98.0 F 97.3 F Pulse Rate 106 H 106 H 95 Respiratory Rate 16 Blood Pressure 130/75 130/75 126/65 Pulse Oximetry 96 10/17/20 16:29 Temperature 97.9 F Pulse Rate 99 Respiratory Rate Blood Pressure 135/75 Pulse Oximetry Body Mass Index 26.4 Labs Results: 10/11/20 19:38 10/13/20 07:51 Medications Medications Current Medications Generic Name Dose Route Start Last Admin Trade Name Frankq PRN Reason Stop Dose Admin Acetaminophen 650 mg 10/12/20 17:54 Acetaminophen 325 Mg Tablet PO Q6H PRN Headache/Pain Mild Scale (1-3) Al Hydroxide/Mg Hydroxide 30 ml 10/12/20 17:54 Magnesium Hydrox/Alum Hydrox 30 Ml Oral.Susp PO Q6H PRN Heartburn/Nausea Benztropine Mesylate 1 mg 10/12/20 09:00 10/17/20 08:13 Benztropine Mesylate 0.5 Mg Tablet PO 1 mg BID LU Administration Clonidine HCl 0.1 mg 10/14/20 21:00 10/16/20 20:06 Clonidine Hcl 0.1 Mg Tablet PO 0.1 mg BEDTIME LU Administration Protocol Divalproex Sodium 1,000 mg 10/12/20 09:00 10/17/20 08:13 Divalproex Sodium 500 Mg Tablet.Dr PO 1,000 mg BID LU Administration Haloperidol 5 mg 10/12/20 09:00 10/17/20 14:20 Haloperidol 5 Mg Tablet PO 5 mg TID LU Administration Lorazepam 1 mg 10/12/20 08:36 10/16/20 09:11 Lorazepam 1 Mg Tablet PO 1 mg Q4H PRN Administration Agitation Magnesium Hydroxide 30 ml 10/12/20 17:54 Milk Of Magnesia 30 Ml Oral.Susp PO DAILY PRN Constipation Nicotine Polacrilex 2 mg 10/12/20 17:54 10/17/20 10:29 Nicotine Polacrilex 2 Mg Gum BUCCAL 2 mg Q2H PRN Administration Nicotine Cravings Olanzapine 10 mg 10/12/20 09:00 10/17/20 08:13 Olanzapine 10 Mg Tablet PO 10 mg DAILY LU Administration Olanzapine 20 mg 10/12/20 21:00 10/16/20 20:06 Olanzapine 10 Mg Tablet PO 20 mg BEDTIME LU Administration Olanzapine 5 mg 10/12/20 18:55 Olanzapine 5 Mg Tablet PO Q4H PRN Psychosis Pharmacy Consult 1 each 10/12/20 07:00 Consult Rx Perform Med Rec MISCELLANE ONCE PRN Consult order Sumatriptan Succinate 50 mg 10/15/20 10:33 Sumatriptan Succinate 50 Mg Tablet PO DAILY PRN headache pain Topiramate 50 mg 10/15/20 21:00 10/16/20 20:07 Topiramate 25 Mg Tablet PO 50 mg BEDTIME LU Administration Trazodone HCl 50 mg 10/12/20 17:54 Trazodone Hcl 50 Mg Tablet PO BEDTIME PRN Insomnia Vitamin D 125 mcg 10/12/20 09:00 10/17/20 08:13 Cholecalciferol (Vitamin D3) 25 Mcg Tablet PO 125 mcg DAILY LU Administration Allergies Allergies Allergy/AdvReac Type Severity Reaction Status Date / Time No Known Allergies Allergy Verified 08/03/20 18:02 Assessment & Plan Assessment & Plan (1) Migraine aura without headache: Status: Acute Code(s): G43.109 - Migraine with aura, not intractable, without status migrainosus (2) History of concussion: Status: Acute Code(s): Z87.820 - Personal history of traumatic brain injury (3) Bipolar 1 disorder, depressed, severe: Status: Acute Code(s): F31.4 - Bipolar disorder, current episode depressed, severe, without psychotic features (4) Paranoid ideation: Status: Suspected Code(s): F22 - Delusional disorders Assessment and Plan: Continue current treatment plan: -Topiramate 50 mg daily -Sumatriptal 50 mg daily prn headache pain -Continue current psychiatric medication regime -Monitor response to Clonidine for focus, reports previous ADHD diagnosis and wanting a stimulant which may activate mood sx currently. Greater than 50% of the session was spent on counseling and/or coordination of care Patient educated on: medication risk/benefits Informed Consent: understands and further education needed Reason for contiued inpatient stay Substantial Risk for: inability to function and med/psych decompensation
[2020-10-17 21:37] VITALS: BP 124/56; PULSE 74
[2020-10-17] MEDS: cloNIDine HCL 0.1 MG TABLET PO (21:37)
[2020-10-17] MEDS: Topiramate 25 MG TABLET 50 MG PO (21:38)
[2020-10-17] MEDS: OLANZapine 10 MG TABLET 20 MG PO (21:38)
[2020-10-18 04:55] VITALS: BP 121/74; PULSE 83; RESP 18; TEMP 36.3; O2SAT 97
[2020-10-18] MEDS: Magnesium Hydrox/Alum Hydrox 30 ML ORAL.SUSP PO (04:58)
[2020-10-18] MEDS: Divalproex Sodium 500 MG TABLET.DR 1000 MG PO ×2 (08:36→22:02)
[2020-10-18] MEDS: HaloperidoL 5 MG TABLET PO ×3 (08:37→22:03)
[2020-10-18] MEDS: Cholecalciferol (Vitamin D3) 25 MCG TABLET 125 MCG PO (08:37)
[2020-10-18] MEDS: OLANZapine 10 MG TABLET PO ×2 (08:37→22:03)
[2020-10-18] MEDS: Benztropine Mesylate 0.5 MG TABLET 1 MG PO ×2 (08:37→22:01)
[2020-10-18] MEDS: Nicotine Polacrilex 2 MG GUM BUCCAL ×2 (12:02→19:04)
--- NOTE | 2020-10-18 18:36 | P.PNPSI_ITS ---
Subjective Subjective Date of Service: 10/18/20 Reason For Visit: bipolar disorder Subjective Notes: 3 Day (10/20/20) Interim History: Review of medications. Pt requesting a stimulant. Discussed rationale for not adding a stimulant. Review of mgt of bipolar disorder and relapse potential without following plan of care Reports current changes have helped-topamax, clonidine. Reports an increase in appetite and ~10 lb gain in 1.5-2 months. Discussed options. TDN 10/20/20 Medication Compliance: Yes Side effects from medications: No Attending Groups: No Review of Systems Psychiatric: Reports irritability and Reports mood swings Mental Status Exam Mental Status Exam Patient Appearance: Appropriate Patient Orientation: Person, Place, Time and Situation Level of Consciousness: Awake and Alert Patient Behavior: Passive and Anxious Mood Description: Withdrawn and Constricted Affect Description: Withdrawn and Constricted Patient Cognition Impaired: No Ability to Follow Directions: Good Speech Pattern: Spontaneous Speech Memory Description: Episodic Impaired Hallucinations: None Delusions: Not Present Thought Process: Distracted Thought Content: positive for [place] and positive for Circumstantial Depressive Symptoms: Increased Anxiety Judgement: Fair Diagnostics Vital Signs (24Hr): Vital Signs - 24 hr 10/17/20 21:37 10/18/20 04:55 Temperature 97.4 F Pulse Rate 74 83 Respiratory Rate 18 Blood Pressure 124/56 L 121/74 Pulse Oximetry 97 Body Mass Index 26.4 Labs Results: 10/11/20 19:38 10/13/20 07:51 Medications Medications Current Medications Generic Name Dose Route Start Last Admin Trade Name Freq PRN Reason Stop Dose Admin Acetaminophen 650 mg 10/12/20 17:54 Acetaminophen 325 Mg Tablet PO Q6H PRN Headache/Pain Mild Scale (1-3) Al Hydroxide/Mg Hydroxide 30 ml 10/12/20 17:54 10/18/20 04:58 Magnesium Hydrox/Alum Hydrox 30 Ml Oral.Susp PO 30 ml Q6H PRN Administration Heartburn/Nausea Benztropine Mesylate 1 mg 10/12/20 09:00 10/18/20 08:37 Benztropine Mesylate 0.5 Mg Tablet PO 1 mg BID LU Administration Bupropion HCl 75 mg 10/19/20 09:00 Bupropion Hcl 75 Mg Tablet PO DAILY LU Clonidine HCl 0.1 mg 10/18/20 21:00 Clonidine Hcl 0.1 Mg Tablet PO BID LU Protocol Divalproex Sodium 1,000 mg 10/12/20 09:00 10/18/20 08:36 Divalproex Sodium 500 Mg Tablet.Dr PO 1,000 mg BID LU Administration Haloperidol 5 mg 10/12/20 09:00 10/18/20 15:20 Haloperidol 5 Mg Tablet PO 5 mg TID LU Administration Lorazepam 1 mg 10/12/20 08:36 10/16/20 09:11 Lorazepam 1 Mg Tablet PO 1 mg Q4H PRN Administration Agitation Magnesium Hydroxide 30 ml 10/12/20 17:54 Milk Of Magnesia 30 Ml Oral.Susp PO DAILY PRN Constipation Nicotine Polacrilex 2 mg 10/12/20 17:54 10/18/20 12:02 Nicotine Polacrilex 2 Mg Gum BUCCAL 2 mg Q2H PRN Administration Nicotine Cravings Olanzapine 5 mg 10/12/20 18:55 Olanzapine 5 Mg Tablet PO Q4H PRN Psychosis Olanzapine 10 mg 10/18/20 21:00 Olanzapine 10 Mg Tablet PO BID [facility] Pharmacy Consult 1 each 10/12/20 07:00 Consult Rx Perform Med Rec MISCELLANE ONCE PRN Consult order Sumatriptan Succinate 50 mg 10/15/20 10:33 Sumatriptan Succinate 50 Mg Tablet PO DAILY PRN headache pain Topiramate 50 mg 10/15/20 21:00 10/17/20 21:38 Topiramate 25 Mg Tablet PO 50 mg BEDTIME LU Administration Trazodone HCl 50 mg 10/12/20 17:54 Trazodone Hcl 50 Mg Tablet PO BEDTIME PRN Insomnia Vitamin D 125 mcg 10/12/20 09:00 10/18/20 08:37 Cholecalciferol (Vitamin D3) 25 Mcg Tablet PO 125 mcg DAILY LU Administration Allergies Allergies Allergy/AdvReac Type Severity Reaction Status Date / Time No Known Allergies Allergy Verified 08/03/20 18:02 Assessment & Plan Assessment & Plan (1) Bipolar 1 disorder, depressed, severe: Status: Acute Code(s): F31.4 - Bipolar disorder, current episode depressed, severe, without psychotic features Assessment and Plan: -Decrease Olanzapine to 10 mg bid -Increase Clonidine to 0.1 mg bid -Wellbutrin 75 mg a.m. Greater than 50% of the session was spent on counseling and/or coordination of care Reason for contiued inpatient stay Substantial Risk for: inability to function and rapid decompensation
[2020-10-18 20:35] VITALS: BP 138/79; PULSE 99; TEMP 36.9
[2020-10-18 22:02] VITALS: BP 138/79; PULSE 99
[2020-10-18] MEDS: cloNIDine HCL 0.1 MG TABLET PO (22:02)
[2020-10-18] MEDS: Topiramate 25 MG TABLET 50 MG PO (22:03)
[2020-10-19] MEDS: Magnesium Hydrox/Alum Hydrox 30 ML ORAL.SUSP PO (00:44)
[2020-10-19 05:44] VITALS: BP 108/62; PULSE 70; RESP 18; TEMP 36.6; O2SAT 97
[2020-10-19] MEDS: HaloperidoL 5 MG TABLET PO ×3 (08:29→20:40)
[2020-10-19] MEDS: Benztropine Mesylate 0.5 MG TABLET 1 MG PO ×2 (08:30→20:41)
[2020-10-19 08:31] VITALS: BP 108/62; PULSE 70
[2020-10-19] MEDS: OLANZapine 10 MG TABLET PO ×2 (08:31→20:39)
[2020-10-19] MEDS: cloNIDine HCL 0.1 MG TABLET PO ×2 (08:31→20:40)
[2020-10-19] MEDS: Cholecalciferol (Vitamin D3) 25 MCG TABLET 125 MCG PO (08:33)
[2020-10-19] MEDS: Divalproex Sodium 500 MG TABLET.DR 1000 MG PO ×2 (08:33→20:40)
[2020-10-19] MEDS: buPROPion HCL 75 MG TABLET PO (10:14)
[2020-10-19] MEDS: LORazepam 1 MG TABLET PO (13:30)
[2020-10-19] MEDS: OLANZapine 5 MG TABLET PO (13:30)
[2020-10-19 18:00] VITALS: BP 131/70; PULSE 82; TEMP 36.6
--- NOTE | 2020-10-19 18:54 | HO.PSYCHPN ---
Subjective Subjective Date of Service: 10/19/20 Reason For Visit: bipolar disorder Subjective Notes: 3 Day (10/20/20) Interim History: Review of regime. Pt reporting some relief of symptoms. TDN to 10/20/20. Pt talking with team about possible retraction at times. Tells TW he will discharge tomorrow. Medication Compliance: Yes Side effects from medications: No Attending Groups: No Review of Systems Review of Systems Yes all other systems are reviewed and are negative Psychiatric: Reports depression and Reports irritability Mental Status Exam Mental Status Exam Patient Appearance: Appropriate Patient Orientation: Person, Place, Time and Situation Level of Consciousness: Awake and Alert Patient Behavior: Cooperative Mood Description: Calm, Withdrawn and Appropriate Affect Description: Flat Patient Cognition Impaired: No Ability to Follow Directions: Good Speech Pattern: Spontaneous Speech and Soft-Spoken Memory Description: Episodic Impaired Hallucinations: None Delusions: Not Present Thought Process: Distracted Thought Content: positive for [place] and positive for Circumstantial Depressive Symptoms: Unexplained Headaches (improved with Topiramate suggested by Dr. Giles) and Thoughts of /Suicide (denies SI plan, intent) Judgement: Fair Diagnostics Vital Signs (24Hr): Vital Signs - 24 hr 10/18/20 20:35 10/18/20 22:02 10/19/20 05:44 Temperature 98.5 F 97.9 F Pulse Rate 99 99 70 Respiratory Rate 18 Blood Pressure 138/79 138/79 108/62 Pulse Oximetry 97 10/19/20 08:31 Temperature Pulse Rate 70 Respiratory Rate Blood Pressure 108/62 Pulse Oximetry Body Mass Index 26.4 Labs Results: 10/11/20 19:38 10/13/20 07:51 Medications Medications Current Medications Generic Name Dose Route Start Last Admin Trade Name Freq PRN Reason Stop Dose Admin Acetaminophen 650 mg 10/12/20 17:54 Acetaminophen 325 Mg Tablet PO Q6H PRN Headache/Pain Mild Scale (1-3) Al Hydroxide/Mg Hydroxide 30 ml 10/12/20 17:54 10/19/20 00:44 Magnesium Hydrox/Alum Hydrox 30 Ml Oral.Susp PO 30 ml Q6H PRN Administration Heartburn/Nausea Benztropine Mesylate 1 mg 10/12/20 09:00 10/19/20 08:30 Benztropine Mesylate 0.5 Mg Tablet PO 1 mg BID LU Administration Bupropion HCl 75 mg 10/19/20 09:00 10/19/20 10:14 Bupropion Hcl 75 Mg Tablet PO 75 mg DAILY LU Administration Clonidine HCl 0.1 mg 10/18/20 21:00 10/19/20 08:31 Clonidine Hcl 0.1 Mg Tablet PO 0.1 mg BID LU Administration Protocol Divalproex Sodium 1,000 mg 10/12/20 09:00 10/19/20 08:33 Divalproex Sodium 500 Mg Tablet.Dr PO 1,000 mg BID LU Administration Haloperidol 5 mg 10/12/20 09:00 10/19/20 14:31 Haloperidol 5 Mg Tablet PO 5 mg TID LU Administration Lorazepam 1 mg 10/12/20 08:36 10/19/20 13:30 Lorazepam 1 Mg Tablet PO 1 mg Q4H PRN Administration Agitation Magnesium Hydroxide 30 ml 10/12/20 17:54 Milk Of Magnesia 30 Ml Oral.Susp PO DAILY PRN Constipation Nicotine Polacrilex 2 mg 10/12/20 17:54 10/18/20 19:04 Nicotine Polacrilex 2 Mg Gum BUCCAL 2 mg Q2H PRN Administration Nicotine Cravings Olanzapine 5 mg 10/12/20 18:55 10/19/20 13:30 Olanzapine 5 Mg Tablet PO 5 mg Q4H PRN Administration Psychosis Olanzapine 10 mg 10/18/20 21:00 10/19/20 08:31 Olanzapine 10 Mg Tablet PO 10 mg BID LU Administration Pharmacy Consult 1 each 10/12/20 07:00 Consult Rx Perform Med Rec MISCELLANE ONCE PRN Consult order Sumatriptan Succinate 50 mg 10/15/20 10:33 Sumatriptan Succinate 50 Mg Tablet PO DAILY PRN headache pain Topiramate 50 mg 10/15/20 21:00 10/18/20 22:03 Topiramate 25 Mg Tablet PO 50 mg BEDTIME LU Administration Trazodone HCl 50 mg 10/12/20 17:54 Trazodone Hcl 50 Mg Tablet PO BEDTIME PRN Insomnia Vitamin D 125 mcg 10/12/20 09:00 10/19/20 08:33 Cholecalciferol (Vitamin D3) 25 Mcg Tablet PO 125 mcg DAILY LU Administration Allergies Allergies Allergy/AdvReac Type Severity Reaction Status Date / Time No Known Allergies Allergy Verified 08/03/20 18:02 Assessment & Plan Assessment & Plan (1) Bipolar 1 disorder, depressed, severe: Status: Acute Code(s): F31.4 - Bipolar disorder, current episode depressed, severe, without psychotic features Assessment and Plan: -Continue current regime. Greater than 50% of the session was spent on counseling and/or coordination of care Reason for contiued inpatient stay Substantial Risk for: harm to self, harm to others, inability to function and rapid decompensation
[2020-10-19] MEDS: Topiramate 25 MG TABLET 50 MG PO (20:39)
[2020-10-19 20:40] VITALS: BP 131/70; PULSE 82
[2020-10-20 04:30] VITALS: BP 131/68; PULSE 92; RESP 20; TEMP 36.3; O2SAT 98
[2020-10-20] MEDS: Magnesium Hydrox/Alum Hydrox 30 ML ORAL.SUSP PO (04:38)
[2020-10-20 08:57] VITALS: BP 131/68; PULSE 92
[2020-10-20] MEDS: Benztropine Mesylate 0.5 MG TABLET 1 MG PO (08:57)
[2020-10-20] MEDS: Divalproex Sodium 500 MG TABLET.DR 1000 MG PO (08:57)
[2020-10-20] MEDS: Cholecalciferol (Vitamin D3) 25 MCG TABLET 125 MCG PO (08:57)
[2020-10-20] MEDS: cloNIDine HCL 0.1 MG TABLET PO (08:57)
[2020-10-20] MEDS: buPROPion HCL 75 MG TABLET PO (08:57)
[2020-10-20] MEDS: HaloperidoL 5 MG TABLET PO (08:57)
[2020-10-20] MEDS: OLANZapine 10 MG TABLET PO (09:13)
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
== END 2020-10-20 12:00 | disposition home or self-care (01) | DRG 753 ==
LOC: HO.ED 10-12 17:53 → HO.PM5 10-12 18:01
PROVIDERS: Clinical Nurse Specialist Psychiatric/Mental Health; Physician Assistant; Student in an Organized Health Care Education/Training Program; Admitting Provider Psychiatry & Neurology Psychiatry; Emergency Provider Emergency Medicine Emergency Medical Services; Visit Provider Clinical Nurse Specialist Psychiatric/Mental Health, Adult
DX: F31.4 Bipolar disorder, current episode depressed, severe, without psychotic features (principal); R45.851 Suicidal ideations; G43.109 Migraine with aura, not intractable, without status migrainosus; Z23 Encounter for immunization; Z87.820 Personal history of traumatic brain injury; Z79.899 Other long term (current) drug therapy
CPT/HCPCS: 0241U; 36415; 80048; 80053; 80061; 80076; 80164; 80307; 80320; 81003; 83036; 83735; 85025; 87635; 90686; 99285

== ENCOUNTER 2024-12-14 22:10 | Emergency (ER) | payer BC, SELFPAY ==
--- NOTE | ~2024-12-14 | XR_ITS ---
CLINICAL HISTORY: dislocation Left shoulder three views Comparison: None Findings: No acute fracture or dislocation identified. No acute focal bony abnormality. No radiopaque foreign body noted. Impression: No acute bony abnormality This document has been electronically signed by: Medardo Brown MD on 12/14/2024 23:18:06
[2024-12-14 22:29] VITALS: BP 169/113; PULSE 120; RESP 18; TEMP 36.6; O2SAT 99; BMI 37.6
--- NOTE | 2024-12-14 23:10 | ED.EXTPRO ---
HPI - Extremity Problem General Chief complaint: Extremity Injury, Upper Stated complaint: left shoulder dislocation Time Seen by Provider: 12/14/24 23:10 Source: patient Mode of arrival: ambulatory Limitations: no limitations History of Present Illness ED Provider: HPI Narrative: Patient's stumped on something very hard felt left shoulder dislocate when he put the jacket on felt it has been back to the position at the time of x-ray patient was feeling better x-ray negative for fracture or dislocation patient did have history of dislocation about 10 years ago Related Data Home Medications ?Medication ?Instructions ?Recorded ?Confirmed omega 0-lam-aof-fish oil 1,000 mg 1 cap PO DAILY 10/12/20 10/25/20 (120 mg-180 mg) capsule (Fish Oil) Previous Rx's ?Medication ?Instructions ?Recorded benztropine 0.5 mg tablet 1 mg (2 x 0.5 mg) PO BID #60 tabs 10/20/20 cholecalciferol (vitamin D3) 125 125 mcg PO DAILY #30 tabs 10/20/20 mcg (5,000 unit) tablet (Vitamin D3) clonidine HCl 0.1 mg tablet 0.1 mg PO BID #30 tabs 10/20/20 divalproex 500 mg tablet,delayed 1,000 mg (2 x 500 mg) PO BID #120 10/20/20 release tabs haloperidol 5 mg tablet 5 mg PO TID #90 tabs 10/20/20 lorazepam 1 mg tablet 1 mg PO Q4-6H PRN Agitation #15 10/20/20 tabs olanzapine 10 mg tablet 10 mg PO BID #60 tabs 10/20/20 sumatriptan succinate 50 mg tablet 50 mg PO DAILY PRN headache pain 10/20/20 #10 tabs topiramate 25 mg tablet 50 mg (2 x 25 mg) PO BEDTIME #30 10/20/20 tabs Allergies Allergy/AdvReac Type Severity Reaction Status Date / Time No Known Allergies Allergy Verified 12/14/24 22:31 Review of Systems Review of Systems: Yes all other systems are reviewed and are negative PMFSH Past Medical History Medical History Hospital discharge follow-up History of concussion TBI (traumatic brain injury) Depression Suicidal behavior Depression Family History Family History Mother No problems noted. Father Affective bipolar disorder ADD (attention deficit disorder) Social History Social History Household Members: Family Housing: Apartment Do you presently have visiting nurse or other home services: No Alcohol intake: former Comment: PT still complaining of headache Second Hand Smoke Exposure: No Substance Use Type: Hallucinogens Advance Directives: No Advance Directives Information Provided: Yes Do you have a plan to hurt others: No Plan service: No Sexual orientation: Don't Know Physical Exam Vital Signs: Vital Signs: Last Vital Signs Temp 98 F 12/14/24 23:29 Pulse 109 H 12/14/24 23:29 Resp 16 12/14/24 23:29 BP 150/107 H 12/14/24 23:29 Pulse Ox 98 12/14/24 23:29 O2 Del Method Room Air 12/14/24 23:29 BMI result Body Mass Index 37.6 Appearance: Alert. Oriented X3. No acute distress. Eyes: no pallor or icterus ENT: Pharynx normal. Oral Mucosa moist Neck: Normal inspection. Neck supple. CVS: Normal heart rate and rhythm. Pulses normal. Respiratory: No respiratory distress. Equal air entry bilateral, no wheezing/rales/rhonchi Abd: soft, not tender Skin: Skin warm and dry. Normal skin color. Normal skin turgor. Extremities: No lower extremity edema, no calf tenderness left shoulder normal contour neurovascular intact good range of movement Neuro: Oriented X 3. Medical Decision Making Medical Decision Making MDM Narrative: Patient's x-ray negative for dislocation likely patient has strain of the left shoulder Independent Interpretation I performed an independent interpretation of an: Plain X-Ray Radiology Impression Discussion of test interpretation with radiology: I have reviewed the radiologist's reading. Radiologist Impression: Negative shoulder x-ray Discharge Plan Discharge Clinical Impression: Left shoulder strain Patient Disposition: Home, Self-Care Instructions: Rotator Cuff Injury (ED) Additional Instructions: it is possible possible you might have L shoulder strain /dislocation Your x-rays shows no dislocation or fracture Avoid lifting your left arm above had until completely healed Prescriptions: No Action omega 9-wsb-zft-fish oil [Fish Oil] 1,000 mg (120 mg-180 mg) Capsule 1 cap PO DAILY clonidine HCl 0.1 mg Tablet 0.1 mg PO BID Qty: 30 1RF Protocol: Hold for SBP< HOLD for SBP < : 90 sumatriptan succinate 50 mg Tablet 50 mg PO DAILY PRN (Reason: headache pain) Qty: 10 0RF olanzapine 10 mg Tablet 10 mg PO BID Qty: 60 0RF topiramate 25 mg Tablet 50 mg PO BEDTIME Qty: 30 0RF benztropine 0.5 mg Tablet 1 mg PO BID Qty: 60 0RF haloperidol 5 mg Tablet 5 mg PO TID Qty: 90 0RF divalproex 500 mg Tablet,Delayed Release (Dr/Ec) 1,000 mg PO BID Qty: 120 0RF lorazepam 1 mg tablet 1 mg PO Q4-6H PRN (Reason: Agitation) Qty: 15 0RF cholecalciferol (vitamin D3) [Vitamin D3] 125 mcg (5,000 unit) Tablet 125 mcg PO DAILY Qty: 30 0RF Interventions: ED Discharge Assessment Last Done: 12/14/24 23:29 Discharge Date/Time: 12/14/24 23:30 Print Language: Malaysian
[2024-12-14 23:29] VITALS: BP 150/107; PULSE 109; RESP 16; TEMP 36.6; O2SAT 98
== END 2024-12-14 23:30 | disposition home or self-care (01) ==
PROVIDERS: Emergency Provider Internal Medicine
DX: S46.912A Strain of unspecified muscle, fascia and tendon at shoulder and upper arm level, left arm, initial encounter (principal); X58.XXXA Exposure to other specified factors, initial encounter; M25.512 Pain in left shoulder; Y93.9 Activity, unspecified; Y92.9 Unspecified place or not applicable; Y99.9 Unspecified external cause status
CPT/HCPCS: 73030; 99282; 99283

== ENCOUNTER → 2024-12-14 22:42 | Outpatient (BNV) | payer BC, SELFPAY | PROVIDERS: Emergency Provider Internal Medicine; Visit Provider Radiology Diagnostic Radiology | DX: S43.005A Unspecified dislocation of left shoulder joint, initial encounter (principal) | CPT/HCPCS: 73030 ==

== ENCOUNTER 2024-12-27 10:58 | Emergency (ER) | payer BC, SELFPAY ==
[2024-12-27] VITALS (8 sets, daily range): BP systolic 146–175; BP diastolic 96–108; PULSE 96–116; RESP 18–20; TEMP 36.1–36.7; O2SAT 96–99; BMI 35.6
--- NOTE | ~2024-12-27 | XR_ITS ---
CLINICAL HISTORY: cough SOB 2 view chest x-ray. Comparison: None Findings: Normal lung volumes. Lungs are clear. No pneumothorax or pleural effusion. Heart size normal. No passive venous congestion. No midline shift or tracheal deviation. No acute fracture. Impression: 1. No acute cardiopulmonary disease. This document has been electronically signed by: Fredi Poole MD on 12/27/2024 11:52:07
--- NOTE | 2024-12-27 11:03 | ED_ITS ---
HPI - URI/Sore Throat General Chief Complaint: Upper Respiratory Symptoms Stated Complaint: SOB Time Seen by Provider: 12/27/24 11:40 Source: patient, RN notes reviewed and old records reviewed Mode of arrival: ambulatory History of Present Illness ED Provider: Hoa Perkins PA-C HPI Narrative: 29-year-old male with a past medical history of migraines, bipolar, presenting to the ED complaining of URI symptoms of productive cough, rhinorrhea, fever, SOB x few weeks. Reports SOB and chest discomfort worsening over the past few days. Reports chest discomfort worse with coughing and deep breathing. Admits to coughing up small amount of blood-tinged sputum today. Admits to smoking vape, quit 1 month ago. Denies recent fevers, chills, travel, pedal edema, history of clots. + sick contact Related Data Home Medications ?Medication ?Instructions ?Recorded ?Confirmed omega 3-nyx-wss-fish oil 1,000 mg 1 cap PO DAILY 10/12/20 10/25/20 (120 mg-180 mg) capsule (Fish Oil) Previous Rx's ?Medication ?Instructions ?Recorded benztropine 0.5 mg tablet 1 mg (2 x 0.5 mg) PO BID #60 tabs 10/20/20 cholecalciferol (vitamin D3) 125 125 mcg PO DAILY #30 tabs 10/20/20 mcg (5,000 unit) tablet (Vitamin D3) clonidine HCl 0.1 mg tablet 0.1 mg PO BID #30 tabs 10/20/20 divalproex 500 mg tablet,delayed 1,000 mg (2 x 500 mg) PO BID #120 10/20/20 release tabs haloperidol 5 mg tablet 5 mg PO TID #90 tabs 10/20/20 lorazepam 1 mg tablet 1 mg PO Q4-6H PRN Agitation #15 10/20/20 tabs olanzapine 10 mg tablet 10 mg PO BID #60 tabs 10/20/20 sumatriptan succinate 50 mg tablet 50 mg PO DAILY PRN headache pain 10/20/20 #10 tabs topiramate 25 mg tablet 50 mg (2 x 25 mg) PO BEDTIME #30 10/20/20 tabs prednisone 20 mg tablet 40 mg (2 x 20 mg) PO DAILY 5 days 12/27/24 #10 tabs Allergies Allergy/AdvReac Type Severity Reaction Status Date / Time No Known Allergies Allergy Verified 12/27/24 11:01 Review of Systems 2 Review of Systems: Yes all other systems are reviewed and are negative Constitutional: Constitutional: Reports as per [facility] Past Medical History Attestation statement: The following information was validated with the patient. Source: old records reviewed Medical History Hospital discharge follow-up History of concussion TBI (traumatic brain injury) Depression Suicidal behavior Depression Family History Family History Mother No problems noted. Father Affective bipolar disorder ADD (attention deficit disorder) Social History Social History Household Members: Family Housing: Apartment Do you presently have visiting nurse or other home services: No Alcohol intake: former Comment: PT still complaining of headache Smoked in Last 30 Days: No Second Hand Smoke Exposure: No Use of substances other than those prescribed or required for medical reasons: No Substance Use Type: Hallucinogens Advance Directives: No Advance Directives Information Provided: Yes service: No Sexual orientation: Don't Know Physical Exam 2 Vital Signs: Vital Signs: Last Vital Signs Temp 98.0 F 12/27/24 12:53 Pulse 98 12/27/24 14:25 Resp 18 12/27/24 14:25 BP 146/96 H 12/27/24 14:25 Pulse Ox 99 12/27/24 14:25 O2 Del Method Room Air 12/27/24 14:25 BMI result Body Mass Index 35.6 Const: General: cooperative, healthy appearing and no acute distress O rientation/consciousness: patient oriented x3 Limitations: no limitations HEENT: Head: Yes normal to inspection and Yes atraumatic Ears: hearing grossly normal bilaterally General nose exam: Normal external nose present Face and sinus: Yes normal facial exam Eyes: General: appearance normal, both eyes and all related structures EOM: EOMs intact bilaterally Neck: Neck: Yes normal visual inspection and Yes no meningeal signs Resp: Effort & Inspection: normal respiratory effort and no respiratory distress Auscultation: clear to auscultation bilaterally, no crackles, no rhonchi and no wheezes Cardio: Rate: regular rate Heart sounds: S1 normal heart sound present and S2 normal heart sound present Skin: Rashes: no rashes Wounds: no wounds Neuro: General: patient oriented x3, tone normal and no meningeal signs C ranial nerves: Yes CN's II-XII intact bilaterally Gait exam (Neuro): Normal gait present Extrem: General: Yes normal to inspection, Yes no pedal edema and Yes no calf tenderness Course Course Course Narrative: This is an RME: Additional HPI, ROS, PE not included below will be deferred to primary provider. RME assessment and note performed by: Linda Rosado PA-C This is a [id number]-male, with a hx of bipolar disorder, who presents to the ER with complaints of rhinorrhea, dry cough, SOB for the last several days. Reports that his aunt is sick at home with similar symptoms. Pt reports possible hx of htn, currently on clonidine which he did not take today. He is speaking in full sentences under no acute distress. Plan: Labs, EKG, XR, viral swabs -1242--viral testing negative XR chest 2V Impression: 1. No acute cardiopulmonary disease. >1333--blood pressure still elevated after home dose of clonidine given. Will give 2.5 mg of amlodipine and re-evaluate. Patient denies chest pain or headache -troponin negative. D-dimer WNL, PE unlikely -1441--blood pressure improved to 146/96 after p.o. amlodipine. Patient states he is intermittently noncompliant with his clonidine at home, and does not regularly check his blood pressure. Discussed importance of clonidine compliance and blood pressure monitoring. Discussed needed close follow-up with PCP and call 1st thing Sunday morning. Should be checking blood pressure at home regularly and if continues to be elevated or develops any headache or chest pain to return to the ED. At this time we will not start on additional medications for blood pressure as he has been noncompliant with clonidine and do not want to make him hypotensive Medications Administered Discontinued Medications Generic Name Dose Route Start Last Admin Trade Name Mary Anne PRN Reason Stop Dose Admin Amlodipine Besylate 2.5 mg 12/27/24 13:32 12/27/24 13:58 Amlodipine Besylate 2.5 Mg Tablet PO 12/27/24 13:33 2.5 mg ONCE ONE Administration Protocol Clonidine HCl 0.1 mg 12/27/24 12:36 12/27/24 12:48 Clonidine Hcl 0.1 Mg Tablet PO 12/27/24 12:37 0.1 mg ONCE ONE Administration Protocol Medical Decision Making Medical Decision Making [facility] Narrative: 29-year-old male with a past medical history of migraines, bipolar, presenting to the ED complaining of URI symptoms of productive cough, rhinorrhea, fever, SOB x few weeks. Reports SOB and chest discomfort worsening over the past few days. Reports chest discomfort worse with coughing and deep breathing. On exam hypertensive, denies taking clonidine today, tachycardic, NAD, nontoxic appearing, talking in complete sentences/no respiratory distress, lungs CTA, no pedal edema. Concern for viral illness vs pneumonia vs bronchitis vs PE. Lower suspicion for ACS/DVT or malignancy at this time Plan: EKG, labs, CXR, viral testing, CXR Please refer to course for remaining clinical decision making, interpretation of labs/imaging results, and discussions with consultants and/or family members. Differential Diagnosis Differential Diagnoses: The differential diagnosis associated with the presentation includes As above Admission/Observation Consideration of admission/observation: Escalation of care including admission/observation considered Lab Data [facility] Lab Attestation statement: I reviewed the patient's lab results. 12/27/24 11:09 12/27/24 11:09 Labs: Lab Results 12/27/24 12/27/24 12/27/24 Range/Units 11:09 12:48 12:49 WBC 8.4 (4.8-10.8) X10*3/uL RBC 5.42 (4.60-5.80) X10*6/uL Hgb 16.4 (14.0-18.0) g/dl Hct 47.6 (42.0-52.0) % MCV 87.8 (80.0-98.0) fL MCH 30.3 (27.0-33.0) pg MCHC 34.5 (31.0-36.0) g/dl RDW 12.2 (11.0-16.0) % Plt Count 239 (160-400) X10*3/uL MPV 11.6 (9.4-12.4) fL Immature Gran % (Auto) 3.8 H (0.0-0.4) % Neut % (Auto) 51.7 (45-73) % Lymph % (Auto) 33.3 (20-40) % [place] % (Auto) 8.7 (2-11) % Eos % (Auto) 2.0 (0-4) % Baso % (Auto) 0.5 (0-2) % Lymph # (Auto) 2.8 (1.2-4.9) X10*3/uL [place] # (Auto) 0.7 (0.1-1.2) X10*3/uL Eos # (Auto) 0.2 (0.0-0.4) X10*3/uL Baso # (Auto) 0.0 (0.0-0.2) X10*3/uL Abs Immat Gran (auto) 0.32 H (0.00-0.03) X10*3/uL Absolute Neuts (auto) 4.3 (2.0-8.3) x10*3/uL Absolute Nucleated RBC 0.000 (0.0-0.012) X10*3/uL Nucleated RBC % (auto) 0.0 (0.0-0.2) /100WBC Hold Purple Top SEE NOTE D-Dimer High Sensitivty < 150 NG/ML Sodium 143 (135-145) mmol/L Potassium 4.1 (3.3-5.1) mmol/L Chloride 105 (96-108) mmol/L Carbon Dioxide 27 (22-29) mmol/L Anion Gap 15 (12-20) BUN 10 (9-16) mg/dL Creatinine 1.03 (0.5-1.4) mg/dL Estim Creat Clear Calc 143.6 Estimated GFR > 60 Random Glucose 107 (60-115) mg/dL Calcium 9.6 D (8.4-10.2) mg/dL Troponin I High Sens < 2.7 (<3.5-35.0) ng/L B-Natriuretic Peptide 18 (<100) pg/mL Influenza Type A (PCR) NEGATIVE (Negative) Influenza Type B (PCR) NEGATIVE (Negative) RSV RNA Qual (PCR) NEGATIVE (Negative) SARS-CoV-2 RNA (RT-PCR) NEGATIVE (Negative) Independent Interpretation I performed an independent interpretation of an: EKG (My interpretation EKG normal sinus rhythm rate of 99. MA interval 154. QTC 444. No STEMI) and CT Scan Radiology Impression Discussion of test interpretation with radiology: I have reviewed the radiologist's reading. External Record Review External record reviewed: Inpatient record, Office record, Outpatient record, Prior outpatient labs, Prior outpatient radiology, Primary care record and Outside ED record Tests considered The following testing was considered but not selected: As above Prescription Management I considered prescription management with: Other Chronic Conditions Patient?s care impacted by: Other Social Determinants Patient?s care significantly limited by Social Determinants of Health including: Other Social Determinant of Health Discharge Plan Discharge Clinical Impression: Bronchitis, HTN (hypertension) Patient Disposition: Home, Self-Care Instructions: How to Take a Blood Pressure (ED), Acute Bronchitis (ED), Hypertension (ED) Additional Instructions: You have bronchitis. Prednisone as a steroid please take as prescribed until completion You need to continuously check your blood pressure at home, monitor closely Please take your clonidine as prescribed, do not miss any doses Follow up with your primary care doctor, call 1st thing Sunday morning If her blood pressure remains elevated at home, you develop headaches, chest pain, shortness of breath, persistent or worsening cough please return to the emergency department Prescriptions: New prednisone 20 mg tablet 40 mg PO DAILY 5 Days Qty: 10 0RF No Action omega 8-uqc-ltl-fish oil [Fish Oil] 1,000 mg (120 mg-180 mg) Capsule 1 cap PO DAILY clonidine HCl 0.1 mg Tablet 0.1 mg PO BID Qty: 30 1RF Protocol: Hold for SBP< HOLD for SBP < : 90 sumatriptan succinate 50 mg Tablet 50 mg PO DAILY PRN (Reason: headache pain) Qty: 10 0RF olanzapine 10 mg Tablet 10 mg PO BID Qty: 60 0RF topiramate 25 mg Tablet 50 mg PO BEDTIME Qty: 30 0RF benztropine 0.5 mg Tablet 1 mg PO BID Qty: 60 0RF haloperidol 5 mg Tablet 5 mg PO TID Qty: 90 0RF divalproex 500 mg Tablet,Delayed Release (Dr/Ec) 1,000 mg PO BID Qty: 120 0RF lorazepam 1 mg tablet 1 mg PO Q4-6H PRN (Reason: Agitation) Qty: 15 0RF cholecalciferol (vitamin D3) [Vitamin D3] 125 mcg (5,000 unit) Tablet 125 mcg PO DAILY Qty: 30 0RF Referrals: Physician,Unknown J [Primary Care Provider] - 2 days Print Language: Swazi
--- NOTE | 2024-12-27 11:06 | ECG_ITS ---
Test Reason : TACYCARDIA Blood Pressure : */* mmHG Vent. Rate : 99 BPM Atrial Rate : 100 BPM P-R Int : 154 ms QRS Dur : 98 ms QT Int : 346 ms P-R-T Axes : 34 4 36 degrees QTcB Int : 444 ms Normal sinus rhythm Normal ECG No previous ECGs available Referred By: Linda Rosado Electronically Signed By: BUBBA CM MD
[2024-12-27 11:14] LABS: MANUAL DIFF FLAG NO
[2024-12-27 11:15] LABS: Basophils Percent Auto 0.5 % (0-2); Eosinophils Absolute Auto 0.2 X10*3/uL (0.0-0.4); Hematocrit 47.6 % (42.0-52.0); Hemoglobin 16.4 g/dl (14.0-18.0); Imm Gran Abs Auto 0.32 X10*3/uL (0.00-0.03); Imm Gran Pct Auto 3.8 % (0.0-0.4); Lymphocytes Absolute Auto 2.8 X10*3/uL (1.2-4.9); Lymphocytes Percent Auto 33.3 % (20-40); Mean Corpuscular HGB Conc 34.5 g/dl (31.0-36.0); Mean Corpuscular Hemoglobin 30.3 pg (27.0-33.0); Mean Corpuscular Volume 87.8 fL (80.0-98.0); Mean Platelet Volume 11.6 fL (9.4-12.4); Monocytes Absolute Auto 0.7 X10*3/uL (0.1-1.2); Monocytes Percent Auto 8.7 % (2-11); Neutrophils Absolute Auto 4.3 x10*3/uL (2.0-8.3); Neutrophils Percent Auto 51.7 % (45-73); Platelet Count 239 X10*3/uL (160-400); Red Blood Count 5.42 X10*6/uL (4.60-5.80); Red Cell Distribution Width 12.2 % (11.0-16.0); White Blood Count 8.4 X10*3/uL (4.8-10.8)
[2024-12-27 11:26] LABS: Anion Gap 15 (12-20); Blood Urea Nitrogen 10 mg/dL (9-16); Calcium 9.6 mg/dL (8.4-10.2); Carbon Dioxide 27 mmol/L (22-29); Chloride 105 mmol/L (96-108); Creatinine Clr Calc Pharmacy 143.6; Estimated Glomerular Filt Rate > 60; Glucose Random 107 mg/dL (60-115); Potassium 4.1 mmol/L (3.3-5.1); Sodium 143 mmol/L (135-145)
[2024-12-27 11:52] LABS: Influenza A PCR NEGATIVE (Negative); Influenza B PCR NEGATIVE (Negative); Resp Syncy Virus RNA Qual PCR NEGATIVE (Negative); SARS COV2 PCR INHOUSE NEGATIVE (Negative)
[2024-12-27] MEDS: cloNIDine HCL 0.1 MG TABLET PO (12:48)
[2024-12-27 12:51] LABS: B Type Natriuretic Peptide 18 pg/mL (<100)
[2024-12-27 13:16] LABS: D Dimer High Sensitivity < 150 NG/ML
[2024-12-27 13:18] LABS: Troponin-I High Sensitivity < 2.7 ng/L (<3.5-35.0)
[2024-12-27] MEDS: amLODIPine Besylate 2.5 MG TABLET PO (13:58)
== END 2024-12-27 14:56 | disposition home or self-care (01) ==
PROVIDERS: Physician Assistant; Emergency Provider Emergency Medicine
DX: J40 Bronchitis, not specified as acute or chronic (principal); R00.0 Tachycardia, unspecified; R05.9 Cough, unspecified; J34.89 Other specified disorders of nose and nasal sinuses; R50.9 Fever, unspecified; R06.02 Shortness of breath; I10 Essential (primary) hypertension
CPT/HCPCS: 0241U; 36415; 71046; 80048; 83880; 84484; 85025; 85379; 93005; 99283; 99285

== ENCOUNTER → 2024-12-27 11:03 | Outpatient (BNV) | payer BC, SELFPAY | PROVIDERS: Visit Provider Radiology Diagnostic Radiology | DX: R05.9 Cough, unspecified (principal); R06.02 Shortness of breath | CPT/HCPCS: 71046 ==

== ENCOUNTER → 2024-12-27 11:06 | Outpatient (BNV) | payer BC, SELFPAY | PROVIDERS: Emergency Provider Emergency Medicine; Visit Provider Internal Medicine Cardiovascular Disease | DX: R00.0 Tachycardia, unspecified (principal) | CPT/HCPCS: 93010 ==

== ENCOUNTER 2025-01-01 14:44 | Emergency (ER) | payer BC, SELFPAY ==
--- NOTE | ~2025-01-01 | XR_ITS ---
EXAMINATION: XR CHEST CLINICAL INFORMATION: cough COMPARISON: 12/27/2024 TECHNIQUE: 2 views of the chest were obtained. FINDINGS: The cardiac, hilar, and mediastinal contours are normal. The lungs are clear bilaterally. There is no pneumothorax or pleural effusion. There is no focal osseous or soft tissue abnormality. XR/XR chest 2V IMPRESSION: Normal chest. Electronically signed by: Dwayne Valladares MD 01/01/2025 03:22 PM EDT
[2025-01-01 14:48] VITALS: BP 147/97; PULSE 104; RESP 22; TEMP 36.8; O2SAT 99; BMI 36.9
--- NOTE | 2025-01-01 14:48 | ED.SOB ---
HPI - SOB/Dyspnea General Chief Complaint: Upper Respiratory Symptoms Stated Complaint: Shortness of Breath Time Seen by Provider: 01/01/25 16:57 Source: patient Mode of arrival: ambulatory History of Present Illness ED Provider: Hoa Perkins PA-C HPI Narrative: 29-year-old male with a past medical history migraines, bipolar, presenting to the ED complaining of persistent productive cough of clear phlegm and SOB x 3 weeks. Patient was seen and treated in our ED on 12/27 for similar symptoms, had negative workup at that time, discharged home on prednisone which he took without relief. 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 Denies chest pain, travel, sick contacts, pedal edema MD elicited complaint: cough Related Data Home Medications ?Medication ?Instructions ?Recorded ?Confirmed omega 5-aik-pur-fish oil 1,000 mg 1 cap PO DAILY 10/12/20 10/25/20 (120 mg-180 mg) capsule (Fish Oil) Previous Rx's ?Medication ?Instructions ?Recorded benztropine 0.5 mg tablet 1 mg (2 x 0.5 mg) PO BID #60 tabs 10/20/20 cholecalciferol (vitamin D3) 125 125 mcg PO DAILY #30 tabs 10/20/20 mcg (5,000 unit) tablet (Vitamin D3) clonidine HCl 0.1 mg tablet 0.1 mg PO BID #30 tabs 10/20/20 divalproex 500 mg tablet,delayed 1,000 mg (2 x 500 mg) PO BID #120 10/20/20 release tabs haloperidol 5 mg tablet 5 mg PO TID #90 tabs 10/20/20 lorazepam 1 mg tablet 1 mg PO Q4-6H PRN Agitation #15 10/20/20 tabs olanzapine 10 mg tablet 10 mg PO BID #60 tabs 10/20/20 sumatriptan succinate 50 mg tablet 50 mg PO DAILY PRN headache pain 10/20/20 #10 tabs topiramate 25 mg tablet 50 mg (2 x 25 mg) PO BEDTIME #30 10/20/20 tabs prednisone 20 mg tablet 40 mg (2 x 20 mg) PO DAILY 5 days 12/27/24 #10 tabs benzonatate 100 mg capsule 100 mg PO TID PRN cough #14 caps 01/01/25 Allergies Allergy/AdvReac Type Severity Reaction Status Date / Time No Known Allergies Allergy Verified 01/01/25 14:52 Review of Systems Review of Systems: Yes all other systems are reviewed and are negative Constitutional: Constitutional: Reports as per [facility] Past Medical History Attestation statement: The following information was validated with the patient. Source: old records reviewed Medical History Hospital discharge follow-up History of concussion TBI (traumatic brain injury) Depression Suicidal behavior Depression Family History Family History Mother No problems noted. Father Affective bipolar disorder ADD (attention deficit disorder) Social History Social History Household Members: Family Housing: Apartment Do you presently have visiting nurse or other home services: No Alcohol intake: former Comment: PT still complaining of headache Second Hand Smoke Exposure: No Substance Use Type: Hallucinogens service: No Sexual orientation: Don't Know Physical Exam Vital Signs: Vital Signs: Last Vital Signs Temp 98.5 F 01/01/25 16:56 Pulse 98 01/01/25 16:56 Resp 16 01/01/25 16:56 BP 148/95 H 01/01/25 16:56 Pulse Ox 98 01/01/25 16:56 O2 Del Method Room Air 01/01/25 16:56 BMI result Body Mass Index 36.9 Const: General: cooperative, healthy appearing and no acute distress Orientation/consciousness: patient oriented x3 Limitations: no limitations HEENT: Head: Yes normal to inspection and Yes atraumatic Ears: hearing grossly normal bilaterally General nose exam: Normal external nose present Face and sinus: Yes normal facial exam Eyes: General: appearance normal, both eyes and all related structures EOM: EOMs intact bilaterally Neck: Neck: Yes normal visual inspection and Yes no meningeal signs Resp: Effort & Inspection: normal respiratory effort, no respiratory distress and no stridor Auscultation: clear to auscultation bilaterally, no crackles, no rales, no rhonchi and no wheezes Cardio: Rate: regular rate Heart sounds: S1 normal heart sound present and S2 normal heart sound present Skin: Rashes: no rashes Wounds: no wounds Neuro: General: patient oriented x3, tone normal and no meningeal signs Cranial nerves: Yes CN's II-XII intact bilaterally Gait exam (Neuro): Normal gait present Extrem: General: Yes normal to inspection Course Course Course Narrative: This is a Rapid Medical Exam performed in triage by Hoa Perkins PA-C. Full HPI, ROS and PE to be performed by primary ED provider. 29-year-old male with a past medical history of migraines, bipolar, presenting to the ED complaining of persistent cough, productive of clear phlegm & SOB x 3wks ago. Admits to being seen and treated in our ED on 12/27 for similar symptoms, diagnosed with bronchitis, prescribed prednisone which she took without relief. denies CP PE: 99% O2 on RA, talking in complete sentences. Plan: SARs, CXR XR chest 2V IMPRESSION: Normal chest. -viral testing negative Results discussed with patient including worrisome signs and symptoms and strict return precautions, and when to return to the emergency department. They verbalized understanding and feel safe for discharge at this time. Medical Decision Making Medical Decision Making MDM Narrative: 29-year-old male with a past medical history migraines, bipolar, presenting to the ED complaining of persistent productive cough of clear phlegm and SOB x 3 weeks. On exam initially tachycardic, tachypneic, NAD, nontoxic appearing, lungs CTA, no respiratory distress, talking in complete sentences. Concern for viral illness vs pneumonia vs bronchitis. Low suspicion for ACS, PE, dissection, CHF Plan: Viral testing, CXR, albuterol inhaler in the ED Please refer to course for remaining clinical decision making, interpretation of labs/imaging results, and discussions with consultants and/or family members. Differential Diagnosis Differential Diagnoses: The differential diagnosis associated with the presentation includes As above Lab Data [facility] Lab Attestation statement: I reviewed the patient's lab results. Labs: Lab Results 01/01/25 Range/Units 15:11 Influenza Type A (PCR) NEGATIVE (Negative) Influenza Type B (PCR) NEGATIVE (Negative) RSV RNA Qual (PCR) NEGATIVE (Negative) SARS-CoV-2 RNA (RT-PCR) NEGATIVE (Negative) Independent Interpretation I performed an independent interpretation of an: Plain X-Ray Radiology Impression Discussion of test interpretation with radiology: I have reviewed the radiologist's reading. External Record Review External record reviewed: Inpatient record, Office record, Outpatient record, Prior outpatient labs, Prior outpatient radiology, Primary care record and Outside ED record Tests considered The following testing was considered but not selected: As above Prescription Management I considered prescription management with: Pain Medication Chronic Conditions Patient?s care impacted by: Other Social Determinants Patient?s care significantly limited by Social Determinants of Health including: Other Social Determinant of Health Discharge Plan Discharge Clinical Impression: Cough, URI (upper respiratory infection) Patient Disposition: Home, Self-Care Instructions: Acute Cough (ED) Additional Instructions: Your x-ray does not show pneumonia You tested negative for COVID, flu, RSV Tessalon Perles for cough, take as needed In addition use albuterol inhaler at home as needed for shortness of breath/wheezing Have close follow up with her doctor If her symptoms persist or worsen, cough persists, worsens, you have fever, chest pain or shortness of breath return to the ED Prescriptions: New benzonatate 100 mg capsule 100 mg PO TID PRN (Reason: cough) Qty: 14 0RF No Action omega 5-rkt-kpd-fish oil [Fish Oil] 1,000 mg (120 mg-180 mg) Capsule 1 cap PO DAILY clonidine HCl 0.1 mg Tablet 0.1 mg PO BID Qty: 30 1RF Protocol: Hold for SBP< HOLD for SBP < : 90 sumatriptan succinate 50 mg Tablet 50 mg PO DAILY PRN (Reason: headache pain) Qty: 10 0RF olanzapine 10 mg Tablet 10 mg PO BID Qty: 60 0RF topiramate 25 mg Tablet 50 mg PO BEDTIME Qty: 30 0RF benztropine 0.5 mg Tablet 1 mg PO BID Qty: 60 0RF haloperidol 5 mg Tablet 5 mg PO TID Qty: 90 0RF divalproex 500 mg Tablet,Delayed Release (Dr/Ec) 1,000 mg PO BID Qty: 120 0RF lorazepam 1 mg tablet 1 mg PO Q4-6H PRN (Reason: Agitation) Qty: 15 0RF cholecalciferol (vitamin D3) [Vitamin D3] 125 mcg (5,000 unit) Tablet 125 mcg PO DAILY Qty: 30 0RF prednisone 20 mg tablet 40 mg PO DAILY 5 Days Qty: 10 0RF Referrals: ED Physician,Generic [Physician] - Physician,Unknown J [Primary Care Provider] - 1 week Print Language: Honduran
[2025-01-01 15:59] LABS: Influenza A PCR NEGATIVE (Negative); Influenza B PCR NEGATIVE (Negative); Resp Syncy Virus RNA Qual PCR NEGATIVE (Negative); SARS COV2 PCR INHOUSE NEGATIVE (Negative)
[2025-01-01 16:56] VITALS: BP 148/95; PULSE 98; RESP 16; TEMP 36.9; O2SAT 98
[2025-01-01] MEDS: Albuterol Sulfate 90 MCG 8 GM INHALER 2 PUFF INHALE (17:05)
[2025-01-01 17:10] VITALS: BP 148/95; PULSE 98; RESP 16; TEMP 36.9; O2SAT 98
== END 2025-01-01 17:11 | disposition home or self-care (01) ==
PROVIDERS: Physician Assistant; Emergency Provider Emergency Medicine Emergency Medical Services; PCP Family Medicine
DX: J06.9 Acute upper respiratory infection, unspecified (principal); R05.9 Cough, unspecified; R06.02 Shortness of breath; Z03.818 Encounter for observation for suspected exposure to other biological agents ruled out
CPT/HCPCS: 0241U; 71046; 99282; 99284

== ENCOUNTER → 2025-01-01 14:50 | Outpatient (BNV) | payer BC, SELFPAY | PROVIDERS: Visit Provider Radiology Diagnostic Radiology | DX: R05.9 Cough, unspecified (principal) | CPT/HCPCS: 71046 ==